=== PATIENT | male | born 1945 | race Caucasian/White ===

== ENCOUNTER 2016-09-17 12:42 | Day surgery (SDC) | payer OTHER ==
[~2016-09-17] VITALS: Ht 161.3 cm; Wt 66.4 kg
[2016-09-17 07:00] VITALS: BP 131/84; PULSE 59; RESP 19; TEMP 97.1; O2SAT 95
[~2016-09-17 12:42] MED LIST: ADVAI500I PO; ALBU1AER INH; AMIO200 PO; ASPI81 CHEW; ATOR20TA PO; FOLI1 PO; LEVA750T PO; METO50TA PO; PROT40TA PO; RIVA20 PO; SERT50 PO; TAB-TAB PO; THIA100T PO; TIZA4 PO
[2016-09-17] MEDS ORDERED: TIZA4CAP3 PO (13:57)
[2016-09-17] MEDS ORDERED: ADVA100A INH (13:57)
[2016-09-17] MEDS ORDERED: SERT-132 PO (13:57)
[2016-09-17] MEDS ORDERED: XARE20TA PO (13:57)
[2016-09-17] MEDS ORDERED: AMIO200T PO (13:57)
[2016-09-17] MEDS ORDERED: oxygen (13:57)
[2016-09-17] MEDS ORDERED: ATOR20TA15 PO (13:57)
[2016-09-17] MEDS ORDERED: PANT40TA3 PO (13:57)
[2016-09-17] MEDS ORDERED: FOLI5CAP PO (13:57)
[2016-09-17] MEDS ORDERED: ASPI1TAB69 PO (13:57)
[2016-09-17 13:59] VITALS: BP 157/84; PULSE 54; RESP 18; TEMP 98.5; O2SAT 96
[2016-09-17 14:17] LABS: AUTOMATED NEUTROPHIL # 4.9 TH/MM3 (1.8-7.7); BASOPHIL % 0.2 % (0.0-2.0); EOSINOPHIL # 0.1 TH/MM3 (0-0.4); EOSINOPHIL % 1.4 % (0.0-4.0); HEMATOCRIT 37.2 % (39.0-51.0); HEMO FLAGS DIFF FINAL; LYMPH % 14.2 % (9.0-44.0); LYMPHOCYTE # 0.9 TH/MM3 (1.0-4.8); MEAN CELL VOLUME 87.3 FL (80.0-100.0); MEAN CORPUSCULAR HEMOGLOBIN 29.4 PG (27.0-34.0); MEAN CORPUSCULAR HGB CONC 33.7 % (32.0-36.0); MONO % 8.2 % (0.0-8.0); PLATELET COUNT 173 TH/MM3 (150-450); RED BLOOD COUNT 4.27 MIL/MM3 (4.50-5.90); RED CELL DISTRIBUTION WIDTH 15.2 % (11.6-17.2); WHITE BLOOD COUNT 6.5 TH/MM3 (4.0-11.0)
[2016-09-17 14:28] LABS: APTT (PATIENT) 24.9 SEC (24.3-30.1); PROTHROMBIN TIME - PATIENT 10.7 SEC (9.8-11.6)
[2016-09-17 14:36] LABS: BICARBONATE 27.6 MEQ/L (21.0-32.0); POTASSIUM 4.1 MEQ/L (3.5-5.1)
[2016-09-17] MEDS ORDERED: LACTATED RINGER'S 1000 ML IV SCH (15:30)
[2016-09-17] MEDS ORDERED: LORazepam 1 MG TAB SL SCH (15:30)
[2016-09-17] MEDS ORDERED: METOPROLOL TARTRATE 25 MG TAB PO PRN (15:30)
[2016-09-17] MEDS ORDERED: INSULIN HUMAN REGULAR 1,000 UNITS/10 ML VIAL SQ PRN (15:30)
[2016-09-17] MEDS ORDERED: SODIUM CHLORID 0.9% 500 ML INJ 500 ML IV SCH (15:30)
[2016-09-17] MEDS ORDERED: SODIUM CHLORID 0.9% 500 ML IV SCH (15:30)
[2016-09-17] MEDS ORDERED: HEPARIN-NS/PF INJ 500 ML ONE (16:14)
[2016-09-17] MEDS ORDERED: PROPOFOL 200 MG/20 ML AMP IV ONE (16:50)
[2016-09-17] MEDS ORDERED: ISOPROTERENOL HCL 1 MG/5 ML AMP ONE (17:02)
[2016-09-17] MEDS ORDERED: HEPARIN-D5W INJ 250 ML ONE (17:02)
[2016-09-17] MEDS ORDERED: fentaNYL CITRATE 250 MCG/5 ML AMP ONE (17:02)
[2016-09-17] MEDS ORDERED: PROTAMINE SULFATE 50 MG/5 ML VIAL ONE (17:02)
[2016-09-17] MEDS ORDERED: HEPARIN SODIUM - IV 10,000 UNITS/10 ML VIAL ONE (17:02)
[2016-09-17] MEDS ORDERED: LEVOFLOXACIN 500 MG PREMIX INJ 100 ML IV ONE (17:10)
[2016-09-17] MEDS ORDERED: LORazepam 2 MG/ML VIAL IV PRN (19:15)
[2016-09-17] MEDS ORDERED: SODIUM CHLOR 0.9% 250 ML INJ 250 ML IV PRN (19:15)
[2016-09-17] MEDS ORDERED: METOCLOPRAMIDE HCL 10 MG/2 ML VIAL IV PRN (19:15)
[2016-09-17] MEDS ORDERED: LIDOCAINE HCL 1% 50 ML VIAL INFIL PRN (19:15)
[2016-09-17] MEDS ORDERED: BACITRACIN OINT 0.9 GM PKT TOP ONE (19:15)
[2016-09-17] MEDS ORDERED: ATROPINE SULFATE 1 MG/ML VIAL IV PRN (19:15)
[2016-09-17] MEDS ORDERED: oxyCODONE/ACETAMINOPHEN 5 MG/325 MG TAB PO PRN (19:15)
[2016-09-17] MEDS ORDERED: ONDANSETRON HCL 4 MG/2 ML VIAL IV PRN (19:15)
[2016-09-17] MEDS ORDERED: DO NOT ADM ANY ANTICOAGULANT DRUGS XX PRN (20:30)
[2016-09-17] MEDS ORDERED: ATORVASTATIN 20 MG TAB PO SCH (21:00)
[2016-09-17] MEDS: BUDESONIDE-FORMOTEROL 80/4.5 MCG INHALER INH SCH (21:00)
[2016-09-17] MEDS ORDERED: NON-FORMULARY DRUG (Fluticasone-Salmeterol Inh (Advair Diskus Inh) 1 PUFF) INH SCH (21:00)
[2016-09-17 21:17] VITALS: BP 107/70; PULSE 60; RESP 18; TEMP 98.1; O2SAT 96
[2016-09-17 22:00] VITALS: PULSE 55
[2016-09-17] MEDS ORDERED: RIVAROXABAN 20 MG TAB PO SCH (22:00)
[2016-09-17 23:00] VITALS: PULSE 58
[2016-09-18] VITALS (12 sets, daily range): BP systolic 110–131; BP diastolic 69–84; PULSE 54–80; RESP 16–20; TEMP 97.1–98.5; O2SAT 94–97
[2016-09-18 06:58] LABS: APTT (PATIENT) 29.9 SEC (24.3-30.1); INTERNATIONAL NORMALIZED RATIO 1.2 RATIO; PROTHROMBIN TIME - PATIENT 12.8 SEC (9.8-11.6)
--- NOTE | 2016-09-18 08:02 | PD.CARD.PN ---
Subjective Subjective Remarks Feels ok. Objective Medications Current Medications Medications (Trade) Dose Ordered Sig/Vidal Route Start Time Stop Time Status Last Admin Sodium Chloride 500 ml @ 30 mls/hr [id number] IV 09/17/16 15:30 09/18/16 15:29 (NS 500 ml Inj) 500 ml @ 30 mls/hr [id number] IV 09/17/16 15:30 (Ativan Inj) 0.5 mg UNSCH PRN IV 09/17/16 19:15 09/18/16 19:14 Atropine Sulfate 0.5 mg 0.5 mg UNSCH PRN IV 09/17/16 19:15 (NS 250 ml Inj) 250 ml @ 500 mls/hr ONCE PRN IV 09/17/16 19:15 09/18/16 19:14 (Reglan Inj) 10 mg Q4H PRN IV 09/17/16 19:15 (Zofran Inj) 4 mg Q4H PRN IV 09/17/16 19:15 (Xylocaine 1% Inj (50 ml)) 10 ml UNSCH PRN INFIL 09/17/16 19:15 09/18/16 19:14 (Cordarone) 200 mg DAILY PO 09/18/16 09:00 (Ecotrin Ec) 81 mg DAILY PO 09/18/16 09:00 (Lipitor) 20 mg HS PO 09/17/16 21:00 09/17/16 21:49 (Folate) 1 mg DAILY PO 09/18/16 09:00 (Protonix) 40 mg DAILY PO 09/18/16 09:00 (Zoloft) 50 mg DAILY PO 09/18/16 09:00 (Zanaflex) 4 mg TID PO 09/18/16 09:00 (Xarelto) 20 mg DAILY@22 PO 09/17/16 22:00 09/17/16 21:49 (Symbicort 80-4.5 Mcg Inh) 2 puff BID INH 09/17/16 21:00 Miscellaneous Information ALL NURSING DEPARTME... UNSCH PRN XX 09/17/16 20:30 09/18/16 20:29 Vital Signs / I&O Vital Signs Date Time Temp Pulse Resp B/P Pulse Ox O2 Delivery O2 Flow Rate FiO2 09/18/16 06:00 55 09/18/16 05:00 55 09/18/16 04:00 98.1 58 16 110/69 97 09/18/16 04:00 59 09/18/16 03:45 94 09/18/16 03:00 55 09/18/16 02:00 61 09/18/16 01:00 60 09/18/16 00:00 61 09/18/16 00:00 98.5 58 16 126/84 96 09/17/16 23:00 58 09/17/16 22:00 55 09/17/16 21:17 98.1 60 18 107/70 96 09/17/16 20:45 97.8 58 16 109/73 95 Room Air 09/17/16 20:30 57 16 115/70 94 Room Air 09/17/16 20:15 56 16 120/71 94 Room Air 09/17/16 20:05 54 16 124/75 93 Room Air 09/17/16 20:00 55 16 127/72 98 Nasal Cannula 2 Simple Mask 09/17/16 19:55 53 15 139/79 98 Nasal Cannula 2 09/17/16 19:50 54 15 147/80 97 Nasal Cannula 2 09/17/16 19:45 57 15 168/92 96 Nasal Cannula 2 09/17/16 19:30 98.1 60 16 178/99 95 Nasal Cannula 2 09/17/16 13:59 98.5 54 18 157/84 96 I/O 09/17/16 09/17/16 09/17/16 09/18/16 09/18/16 09/18/16 07:00 15:00 23:00 07:00 15:00 23:00 Intake Total 700 ml 240 ml Output Total 260 ml 500 ml Balance 440 ml -260 ml Intake Oral 240 ml IV Total 100 ml Other 600 ml Output Urine Total 250 ml 500 ml Estimated Blood Loss 10 ml Physical Exam GENERAL: Well-nourished, well-developed patient. SKIN: Warm and dry. Groin sites soft, no hematoma or bleeding. HEAD: Normocephalic. EYES: No scleral icterus. No injection or drainage. NECK: Supple, trachea midline. No JVD or lymphadenopathy. CARDIOVASCULAR: Regular rate and rhythm without murmurs, gallops, or rubs. RESPIRATORY: Breath sounds equal bilaterally. No accessory muscle use. GASTROINTESTINAL: Abdomen soft, non-tender, nondistended. EXTREMITIES: No cyanosis, or edema. NEUROLOGICAL: Awake, alert, and oriented x 3. Non-focal. Laboratory Laboratory Tests Test 09/17/16 09/17/16 09/18/16 13:39 13:44 05:48 Blood Type O POSITIVE Antibody Screen NEGATIVE White Blood Count 6.5 TH/MM3 Red Blood Count 4.27 MIL/MM3 Hemoglobin 12.5 GM/DL Hematocrit 37.2 % Mean Corpuscular Volume 87.3 FL Mean Corpuscular Hemoglobin 29.4 PG Mean Corpuscular Hemoglobin 33.7 % Concent Red Cell Distribution Width 15.2 % Platelet Count 173 TH/MM3 Mean Platelet Volume 9.5 FL Neutrophils (%) (Auto) 76.0 % Lymphocytes (%) (Auto) 14.2 % Monocytes (%) (Auto) 8.2 % Eosinophils (%) (Auto) 1.4 % Basophils (%) (Auto) 0.2 % Neutrophils # (Auto) 4.9 TH/MM3 Lymphocytes # (Auto) 0.9 TH/MM3 Monocytes # (Auto) 0.5 TH/MM3 Eosinophils # (Auto) 0.1 TH/MM3 Basophils # (Auto) 0.0 TH/MM3 CBC Comment DIFF FINAL Differential Comment Prothrombin Time 10.7 SEC 12.8 SEC Prothromb Time International 1.0 RATIO 1.2 RATIO Ratio Activated Partial 24.9 SEC 29.9 SEC Thromboplast Time Sodium Level 139 MEQ/L Potassium Level 4.1 MEQ/L Chloride Level 104 MEQ/L Carbon Dioxide Level 27.6 MEQ/L Anion Gap 7 MEQ/L Blood Urea Nitrogen 15 MG/DL Creatinine 1.25 MG/DL Estimat Glomerular Filtration 57 ML/MIN Rate Random Glucose 98 MG/DL Calcium Level 8.8 MG/DL Assessment and Plan Problem List: (1) A-fib Assessment and Plan: NSR on tele today. No recurrence overnight. (2) S/P ablation of atrial fibrillation Assessment and Plan: Stable, NSR, d/c home, f/u with Dr. Duarte in 3 weeks per my d/w Dr. Duarte. Problem Qualifiers (1) A-fib: Qualified Code: I48.0 - Paroxysmal atrial fibrillation JenSulema Wicho VILLA Sep 18, 2016 08:02
[2016-09-18] MEDS ORDERED: FOLIC ACID 1 MG TAB PO SCH (09:00)
[2016-09-18] MEDS ORDERED: RIVAROXABAN 20 MG TAB PO SCH (09:00)
[2016-09-18] MEDS ORDERED: AMIODARONE 200 MG TAB PO SCH (09:00)
[2016-09-18] MEDS ORDERED: SERTRALINE HCL 50 MG TAB PO SCH (09:00)
[2016-09-18] MEDS ORDERED: ASPIRIN EC 81 MG TABEC PO SCH (09:00)
[2016-09-18] MEDS: BUDESONIDE-FORMOTEROL 80/4.5 MCG INHALER INH SCH (09:00)
[2016-09-18] MEDS ORDERED: PANTOPRAZOLE SOD 40 MG DELAYED RELEASE TAB PO SCH (09:00)
--- NOTE | 2016-09-18 13:51 | EKG ---
Date Performed: 09/17/2016 Time Performed: 14:21:20 PTAGE: 71 years EKG: Sinus bradycardia Leftward axis Borderline ECG Compared to prior tracing no significant brent nge PREVIOUS TRACING : 09/17/2016 14.12 DOCTOR: Asia Barnett Interpretating Date/Time 09/18/2016 13:49:25
--- NOTE | 2016-09-18 13:52 | EKG ---
Date Performed: 09/18/2016 Time Performed: 06:20:42 PTAGE: 71 years EKG: Sinus rhythm Low QRS voltages in limb leads Borderline ECG Compared to prior tracing no significant change PREVIOUS TRACING : 09/17/2016 20.39 DOCTOR: Asia Barnett Interpretating Date/Time 09/18/2016 13:49:45
--- NOTE | 2016-09-18 13:52 | EKG ---
Date Performed: 09/17/2016 Time Performed: 20:39:17 PTAGE: 71 years EKG: SINUS BRADYCARDIA BORDERLINE LEFT AXIS DEVIATION LOW QRS VOLTAGE IN EXTREMITY LEADS BORDERL INE ECG Compared to prior tracing no significant change PREVIOUS TRACING : 09/17/2016 14.21 DOCTOR: Asia Barnett Interpretating Date/Time 09/18/2016 13:49:36
--- NOTE | 2016-10-06 13:10 | PD.CARD ---
Atrial Fibrillation Ablation PROCEDURE DATE: Sep 17, 2016 PROCEDURES PERFORMED: 1. Electrophysiology study on Isuprel infusion 2. CS cannulation 3. 3-D mapping 4. Transseptal approach 5. Right and left heart catheterization 6. Intracardiac echo 7. Radiofrequency ablation of atrial fibrillation 8. Pulmonary vein isolation 9. Posterior wall ablation 10. Mitral line creation 11. Anterior wall ablation INDICATIONS FOR THE PROCEDURE Mr. Bunch is a 71-year-old male with hx of symptomatic atrial fibrillation referred for electrophysiology study and ablation. The patient is symptomatic and on anticoagulation. The risks, the nature and the benefits of the procedure were clearly stated to him. The risks include pneumothorax, cardiac perforation, stroke, need for open heart surgery and even . The patient understood and agreed to proceed. DESCRIPTION OF THE PROCEDURE IN DETAIL As written informed consent was obtained prior to esophageal echocardiogram, the patient was kept on the table where he was prepped and draped in the usual sterile fashion. Conscious sedation was initiated and maintained throughout the procedure by the anesthesiologist. Once sedation was verified, the right and left inguinal areas were anesthetized with 2% Xylocaine. Using modified Seldinger technique, the left femoral vein was cannulated on three occasions, three guidewires were advanced. Over the wire a 6, 7 and a 10-Malagasy Hemaquet were advanced. Then the left femoral artery was cannulated on one occasion, one guidewire was advanced. Over the wire a 4-Malagasy Hemaquet was advanced. Then the right femoral vein was cannulated on one occasion, one guidewire was advanced. Over the wire a 8-Malagasy Hemaquet was advanced. Then under fluoroscopic guidance through the 6 and 7-Malagasy Hemaquet, two 5-Malagasy Ofelia curved quadripolar electrophysiology catheters were advanced and placed around the His as well as coronary sinus. Basic interval was measured. The patient was in sinus. Through the 10-Malagasy Hemaquet, a Cordis Knowles AcuNav intracardiac echo catheter was advanced and placed at the right atrium. Multiple view was obtained. There was no significant pericardial effusion, pulmonary vein was seen, atrial septal was visualized. Then the 8-Malagasy Hemaquet in the right femoral vein was exchanged for Agilis transseptal sheath that was placed all the way to the superior vena cava. Through the sheath a Yulissa needle was advanced, then the sheath, the dilator and the needle were progressed until foci engaged. Once engaged, the needle was advanced. RF was delivered for 2 seconds. I was able to cross into the left atrium. Once the needle crossed, the dilator was advanced. Once the dilator crossed, the sheath was advanced. Once the sheath crossed, the dilator and the needle were removed. At this point I did flood the system and fluid movement was seen in the left atrium the indicates the sheath is in good position. The patient already received 10,000 units of heparin. The goal is to keep an ACT around 350 during ablation. Then through the sheath a St. Eran 20 pulse circumferential catheter was advanced. Using Object Matrix endocardial solution mapping system, a two-dimensional configuration of the left atrium was obtained. Points were taken at the left superior and inferior veins, right superior and inferior veins, mitral valve, and appendages. Then through the sheath a St. Eran TactiCath 65cm 3.5mm irrigated tipped mapping and radiofrequency ablation catheter was advanced. Esophageal probe was placed temperature monitoring during ablation. When it increased to 0.5 degrees Celsius above baseline, I moved to a different area of the atrium. First I did isolate the left superior and inferior vein. I did make a point lay ira around the veins. Posterior was ablated. A mitral line was created. Then the right superior and inferior veins were isolated. I did remap the atrium. The circumferential catheter was advanced . There was no signal into the vein, pacing from the vein showed no conduction to the atrium. Isuprel infusion was initiated at 20 mcg for 15 minutes. No tachyarrhythmia was induced , post Isuprel no tachyarrhythmia was induced. At that point the procedure was complete. All catheters were removed, atrial septal sheath was exchanged for 9- Malagasy Hemaquet, intracardiac echo showed no pericardial effusion. There is still good flow in the pulmonary vein. The patient is going to be transferred to the recovery room. No incident report. The patient tolerated the procedure. Blood loss was minimal. FINDINGS 1. Electrocardiogram: At baseline the patient was in sinus rhythm. Post procedure electrocardiogram was unchanged. 2. Basic interval: Base cycle length was around 1150. AH at 76 and HV at 46 milliseconds. 3. Tachyarrhythmia: Atrial fibrillation was mapped and ablated. The ablation was successful. CONCLUSION Successful electrophysiology study, mapping, radiofrequency ablation of atrial fibrillation, pulmonary vein isolation, posterior ablation, and mitral line creation. COMMENTS AND RECOMMENDATIONS The patient is going to be transferred to the telemetry unit. Will be observed and when stable can be discharged home. Shaheed Duarte MD Oct 06, 2016 13:10
--- NOTE | 2016-10-07 13:10 | ETE ---
Study Study Date:09/17/2016 STUDY CONCLUSIONS SUMMARY - Left ventricle: The cavity size was normal. Wall thickness was normal. Systolic function was normal. The estimated ejection fraction was in the range of 55% to 60%. Wall motion was normal; there were no regional wall motion abnormalities. - Aortic valve: No evidence of vegetation. - Mitral valve: No evidence of vegetation. - Left atrium: The atrium was dilated. No evidence of thrombus in the atrial cavity or appendage. No evidence of thrombus in the atrial cavity or appendage. - Right atrium: No evidence of thrombus in the atrial cavity or appendage. - Atrial septum: No defect or patent foramen ovale was identified. Echo contrast study showed no yrmud-fk-toen atrial level shunt, at baseline or with provocation. - Tricuspid valve: No evidence of vegetation. - Pulmonic valve: No evidence of vegetation. If LV function is below 40, please consider prescribing an ACEI or ARB or document rationale for non-use. PROCEDURE DATA Consent: The risks, benefits, and alternatives to the procedure were explained to the patient and informed consent was obtained. Procedure: Initial setup. The patient was brought to the laboratory in the fasting state. Intravenous access was obtained. Surface ECG leads and pulse oximetric signals were monitored. Sedation. Conscious sedation was administered by anesthesiology. Transesophageal echocardiography. Topical anesthesia was obtained using viscous lidocaine. A transesophageal probe was inserted by the attending manager pmo. Image quality was good. Study completion: All IVs inserted during the procedure were removed. The patient tolerated the procedure well. There were no complications. Transesophageal echocardiography. 2D, complete spectral Doppler, and color Doppler. CARDIAC ANATOMY LEFT VENTRICLE: The cavity size was normal. Wall thickness was normal. Systolic function was normal. The estimated ejection fraction was in the range of 55% to 60%. Wall motion was normal; there were no regional wall motion abnormalities. AORTIC VALVE: Structurally normal valve. Trileaflet; normal thickness leaflets. Cusp separation was normal. No evidence of vegetation. Doppler: No significant regurgitation. Aorta: - There was no atheroma. There was no evidence for dissection. Aortic root: The aortic root was not dilated. Ascending aorta: The ascending aorta was normal in size. Aortic arch: The aortic arch was normal in size. Descending aorta: The descending aorta was normal in size. MITRAL VALVE: Structurally normal valve. Leaflet separation was normal. No evidence of vegetation. Doppler: Trace regurgitation. LEFT ATRIUM: The atrium was dilated. No evidence of thrombus in the atrial cavity or appendage. No evidence of thrombus in the atrial cavity or appendage. The appendage was morphologically a left appendage, multilobulated, and of normal size. Emptying velocity was normal. ATRIAL SEPTUM: No defect or patent foramen ovale was identified. Echo contrast study showed no vtreb-ge-selg atrial level shunt, at baseline or with provocation. RIGHT VENTRICLE: The cavity size was normal. Wall thickness was normal. Systolic function was normal. PULMONIC VALVE: Structurally normal valve. No evidence of vegetation. TRICUSPID VALVE: Structurally normal valve. Leaflet separation was normal. No evidence of vegetation. Doppler: No significant regurgitation. PULMONARY ARTERY: The main pulmonary artery was normal-sized. RIGHT ATRIUM: The atrium was normal in size. No evidence of thrombus in the atrial cavity or appendage. The appendage was morphologically a right appendage. PERICARDIUM: There was no pericardial effusion. Prepared and signed by Shaheed Duarte [id number]
== END 2016-09-18 18:00 | disposition home or self-care (01) ==
LOC: HCAT 12:42 → HDIC 12:44 → HCIN 21:01 → HCAT 09-18 18:00
PROVIDERS: ATTEND Internal Medicine Interventional Cardiology
DX: I48.0 Paroxysmal atrial fibrillation (principal); J44.1 Chronic obstructive pulmonary disease with (acute) exacerbation; Z79.01 Long term (current) use of anticoagulants; Z79.82 Long term (current) use of aspirin
CPT/HCPCS: 00537; 80048; 85002; 85025; 85610; 85730; 86850; 86900; 86901; 93005; 93312; 93320; 93325; 93613; 93623; 93656; 93662; C1730; C1731; C1732; C1759; C1766; C2630; J1644; J1956; J2720; J3010

== ENCOUNTER 2016-10-18 06:50 | Emergency (ER) | payer OTHER ==
[~2016-10-18] VITALS: Ht 167.6 cm; Wt 75.0 kg
[~2016-10-18 06:50] MED LIST changes: +ADVA100A INH; -ADVAI500I PO; -ALBU1AER INH; -AMIO200 PO; +AMIO200T PO; +ASPI1TAB69 PO; -ASPI81 CHEW; -ATOR20TA PO; +ATOR20TA15 PO; -FOLI1 PO; +FOLI5CAP PO; -LEVA750T PO; -METO50TA PO; +PANT40TA3 PO; -PROT40TA PO; -RIVA20 PO; +SERT-132 PO; -SERT50 PO; -TAB-TAB PO; -THIA100T PO; -TIZA4 PO; +TIZA4CAP3 PO; +XARE20TA PO; +oxygen
[2016-10-18 06:53] VITALS: BP 167/102; PULSE 81; RESP 26; TEMP 98.3; O2SAT 94
[2016-10-18] MEDS ORDERED: methylPREDNISolone SOD SUCC 125 MG/2 ML VIAL IVP ONE (07:15)
[2016-10-18] MEDS ORDERED: SODIUM CHLORIDE 0.9% FLUSH 5 ML FLUSH IVF PRN (07:15)
[2016-10-18 07:18] VITALS: BP 155/76; PULSE 74; RESP 26; O2SAT 97
--- NOTE | 2016-10-18 07:18 | PD ---
HPI Chief Complaint: Respiratory Symptoms Time Seen by Provider: 06:53 Travel History International Travel<30 days: No Contact w/Intl Traveler<30days: No Traveled to known affect area: No History of Present Illness HPI This is a 71-year-old male who has a history of coronary artery disease and COPD on 2 L nasal cannula at home who presents to the emergency department with shortness of breath that woke him up from sleep at 4 AM, constant, moderate severity associated with some pain in his left chest. He doesn't usually get chest pain in the setting of COPD. He denies any mucus production. He denies any fevers or chills. PFSH Past Medical History Hx Anticoagulant Therapy: Yes Arthritis: No Asthma: No Atrial Fibrillation: Yes Autoimmune Disease: No Anxiety: No Depression: No Heart Rhythm Problems: Yes Cancer: No Cardiovascular Problems: Yes (a-fib) High Cholesterol: Yes Chemotherapy: No Chest Pain: No Congestive Heart Failure: No COPD: Yes Cerebrovascular Accident: Yes (@10 years ago) Coronary Artery Disease: Yes Diabetes: No Diminished Hearing: No Endocrine: No Gastrointestinal Disorders: Yes GERD: Yes Genitourinary: No Headaches: No Hiatal Hernia: Yes Hypertension: Yes Immune Disorder: No Inguinal Hernia: Yes Kidney Stones: No Musculoskeletal: Yes Neurologic: Yes Psychiatric: Yes (Self Holley Act Depression over 's ) Reproductive: No Respiratory: Yes Immunizations Current: Yes Migraines: No Radiation Therapy: No Seizures: No Sickle Cell Disease: No Sleep Apnea: No Thyroid Disease: No Ulcer: No Tetanus Vaccination: < 5 Years Influenza Vaccination: Yes Past Surgical History Abdominal Surgery: Yes (HERNIA REPAIR) AICD: No Appendectomy: Yes Arteriovenous Shunt: No Cardiac Surgery: Yes (Stent) Ear Surgery: No Endocrine Surgery: No Eye Surgery: Yes (Bilateral cataracts) Genitourinary Surgery: No Gynecologic Surgery: Yes Insulin Pump: No Joint Replacement: No Neurologic Surgery: No Oral Surgery: Yes (Dental surgery) Pacemaker: No Thoracic Surgery: No Tonsillectomy: Yes Other Surgery: Yes Social History Alcohol Use: Yes Tobacco Use: No Substance Use: No Allergies-Medications (Allergen,Severity, Reaction): Coded Allergies: Codeine (Verified Allergy, Intermediate, 10/18/16) Reported Meds & Prescriptions Reported Meds & Active Scripts Active Reported [oxygen] Xarelto (Rivaroxaban) 20 Mg Tab 20 Mg PO DAILY Tizanidine (Tizanidine HCl) 4 Mg Cap 4 Mg PO TID Sertraline (Sertraline HCl) 50 Mg Tab 50 Mg PO DAILY Pantoprazole (Pantoprazole Sodium) 40 Mg Tab 40 Mg PO DAILY Folic Acid 5 Mg Cap 1 Mg PO DAILY Atorvastatin (Atorvastatin Calcium) 20 Mg Tab 20 Mg PO HS Aspirin 81 Mg Tabdr 81 Mg PO DAILY Amiodarone (Amiodarone HCl) 200 Mg Tab 200 Mg PO DAILY Advair Diskus Inh (Fluticasone-Salmeterol Inh) 100-50 Mcg/Blist Aer 1 Puff INH BID Rinse mouth after use. Review of Systems Except as stated in HPI: all other systems reviewed are Neg Physical Exam Narrative GENERAL: Frail chronically ill-appearing male in moderate respiratory distress SKIN: Warm and dry. HEAD: Atraumatic. Normocephalic. EYES: Pupils equal and round. No injection or drainage. ENT: Moist mucous membranes NECK: Trachea midline. CARDIOVASCULAR: Regular rate and rhythm. No murmur appreciated. RESPIRATORY: Tachypneic with accessory muscle use, poor air movement, and expiratory wheezing in the bilateral lung boland. GASTROINTESTINAL: Abdomen soft, non-tender, nondistended. MUSCULOSKELETAL: No obvious deformities. NEUROLOGICAL: Awake and alert. No obvious cranial nerve deficits. Moving all extremities. PSYCHIATRIC: Appropriate mood and affect; insight and judgment normal. Data Data Last Documented VS Vital Signs Date Time Temp Pulse Resp B/P Pulse Ox O2 Delivery O2 Flow Rate FiO2 10/18/16 07:19 97 Nasal Cannula 2 10/18/16 07:18 74 26 155/76 10/18/16 06:53 98.3 Orders Electrocardiogram (10/18/16 07:08) Complete Blood Count With Diff (10/18/16 07:08) Comprehensive Metabolic Panel (10/18/16 07:08) Chest, Single Ap (10/18/16 07:08) Ecg Monitoring (10/18/16 07:08) Iv Access Insert/Monitor (10/18/16 07:08) Oximetry (10/18/16 07:08) Oxygen Administration (10/18/16 07:08) Methylprednisolone So Succ Inj (Solumedr (10/18/16 07:15) Sodium Chloride 0.9% Flush (Ns Flush) (10/18/16 07:15) Troponin I (10/18/16 07:08) Albuterol Neb (Albuterol Neb) (10/18/16 07:15) Labs Laboratory Tests Test 10/18/16 07:20 White Blood Count 13.2 TH/MM3 Red Blood Count 4.14 MIL/MM3 Hemoglobin 12.3 GM/DL Hematocrit 36.7 % Mean Corpuscular Volume 88.6 FL Mean Corpuscular Hemoglobin 29.7 PG Mean Corpuscular Hemoglobin 33.5 % Concent Red Cell Distribution Width 15.9 % Platelet Count 247 TH/MM3 Mean Platelet Volume 9.3 FL Neutrophils (%) (Auto) 83.8 % Lymphocytes (%) (Auto) 7.4 % Monocytes (%) (Auto) 7.5 % Eosinophils (%) (Auto) 1.1 % Basophils (%) (Auto) 0.2 % Neutrophils # (Auto) 11.1 TH/MM3 Lymphocytes # (Auto) 1.0 TH/MM3 Monocytes # (Auto) 1.0 TH/MM3 Eosinophils # (Auto) 0.2 TH/MM3 Basophils # (Auto) 0.0 TH/MM3 CBC Comment DIFF FINAL Differential Comment Sodium Level 140 MEQ/L Potassium Level 4.3 MEQ/L Chloride Level 103 MEQ/L Carbon Dioxide Level 28.3 MEQ/L Anion Gap 9 MEQ/L Blood Urea Nitrogen 18 MG/DL Creatinine 1.09 MG/DL Estimat Glomerular Filtration 66 ML/MIN Rate Random Glucose 106 MG/DL Calcium Level 9.0 MG/DL Total Bilirubin 0.5 MG/DL Aspartate Amino Transf 29 U/L (AST/SGOT) Alanine Aminotransferase 55 U/L (ALT/SGPT) Alkaline Phosphatase 119 U/L Troponin I LESS THAN 0.02 NG/ML Total Protein 6.7 GM/DL Albumin 3.9 GM/DL [facility] Medical Decision Making Medical Screen Exam Complete: Yes Emergency Medical Condition: Yes Interpretation(s) EKG: Normal sinus rhythm with sinus arrhythmia, some hyperacute T waves in V3 and V4, no ST depressions or T-wave inversions Afebrile, no tachycardia, hypertensive Leukocytosis with left shift Electrolytes are reassuring Troponin is normal Chest x-ray: No acute process Differential Diagnosis Pneumonia, COPD exacerbation, atrial fibrillation, congestive heart failure, pulmonary embolism Narrative Course This is a 71-year-old male who presents to the emergency department with shortness of breath that woke him up from sleep. He has a history of advanced COPD and is on 2 L of oxygen at all times. He was given serial bronchodilator treatments and steroids. On exam he was much improved, breathing comfortably and speaking full sentences. EKG is nonischemic and his troponin is normal. I don't suspect acute coronary syndrome. His oxygen saturation is 97% on his baseline 2 L so I doubt this is a pulmonary embolism. I think patient can safely be discharged home and follow-up with his primary care physician. I advised him to return if his symptoms get worse. Diagnosis Primary Impression: COPD exacerbation Patient Instructions: General Instructions Additional Instructions: If you develop severe chest pain, shortness of breath, sweating, lightheadedness , dizziness or difficulty breathing return to the emergency department immediately. Followup with your primary care physician in 2-3 days if your symptoms are not resolved. Med/Other Pt SpecificInfo: Prescription(s) given Scripts Azithromycin 250 Mg [id number] Mg PO DIRECTED #6 TAB Take 2 tabs (500 mg) on day 1 then 1 tab daily x 4 days. Prov:Bobbi Jensen MD 10/18/16 Prednisone 20 Mg Tab40 Mg PO DAILY 4 Days Prov:Bobbi Jensen MD 10/18/16 Disposition: DISCHARGE HOME Condition: Stable Bobbi Jensen MD Oct 18, 2016 07:18
[2016-10-18 07:19] VITALS: O2SAT 97
[2016-10-18 07:35] LABS: AUTOMATED NEUTROPHIL # 11.1 TH/MM3 (1.8-7.7); BASOPHIL % 0.2 % (0.0-2.0); EOSINOPHIL # 0.2 TH/MM3 (0-0.4); EOSINOPHIL % 1.1 % (0.0-4.0); HEMATOCRIT 36.7 % (39.0-51.0); HEMO FLAGS DIFF FINAL; LYMPH % 7.4 % (9.0-44.0); MEAN CELL VOLUME 88.6 FL (80.0-100.0); MEAN CORPUSCULAR HEMOGLOBIN 29.7 PG (27.0-34.0); MEAN CORPUSCULAR HGB CONC 33.5 % (32.0-36.0); MONO % 7.5 % (0.0-8.0); NEUT % 83.8 % (16.0-70.0); PLATELET COUNT 247 TH/MM3 (150-450); RED BLOOD COUNT 4.14 MIL/MM3 (4.50-5.90); RED CELL DISTRIBUTION WIDTH 15.9 % (11.6-17.2); WHITE BLOOD COUNT 13.2 TH/MM3 (4.0-11.0)
[2016-10-18] MEDS: RESP: ALBUTEROL 2.5 MG/3 ML NEB (SCH) INH (07:39)
--- NOTE | 2016-10-18 07:40 | RADRPT ---
EXAM DATE/TIME: 10/18/2016 07:26 [facility] COMPARISON: CHEST SINGLE AP, June 03, 2016, 15:39. INDICATIONS : Patient woke up this morning being short of breath and left chest pain. MEDICAL HISTORY : Hypercholesterolemia. Chronic obstructive pulmonary disease. Myocardial SURGICAL HISTORY : Tonsillectomy. Appendectomy. Inguinal hernia repair. Bilateral cataract surgery. ENCOUNTER: Initial ACUITY: 1 day PAIN SCORE: 5/10 LOCATION: Left chest FINDINGS: A single view of the chest demonstrates the lungs to be symmetrically aerated without evidence of mas s, infiltrate or effusion. The cardiomediastinal contours are unremarkable. Osseous structures are intact. CONCLUSION: No acute disease. Eros Gonsalez MD on October 18, 2016 at 7:38 Board Certified Radiologist. This report was verified electronically.
[2016-10-18 08:04] LABS: ALT (GPT) 55 U/L (12-78); ANION GAP 9 MEQ/L (5-15); AST (GOT) 29 U/L (15-37); BICARBONATE 28.3 MEQ/L (21.0-32.0); BLOOD UREA NITROGEN 18 MG/DL (7-18); CHLORIDE 103 MEQ/L (98-107); GLOMERULAR FILTRATION RATE 66 ML/MIN (>89); POTASSIUM 4.3 MEQ/L (3.5-5.1); SODIUM (NA) 140 MEQ/L (136-145)
[2016-10-18 08:08] LABS: ALKALINE PHOSPHATASE 119 U/L (45-117); TOTAL BILIRUBIN ADULT 0.5 MG/DL (0.2-1.0)
[2016-10-18] MEDS ORDERED: PRED20 PO (08:16)
[2016-10-18] MEDS ORDERED: AZIT250T3 PO (08:16)
--- NOTE | 2016-10-18 23:38 | EKG ---
Date Performed: 10/18/2016 Time Performed: 07:18:39 PTAGE: 71 years EKG: Sinus rhythm WITH SINUS ARRHYTHMIA BORDERLINE LEFT AXIS DEVIATION BORDERLINE ECG INTERPRETATION BASED ON A DEFAUL T AGE OF 39 YEARS PREVIOUS TRACING : 09/18/2016 06.20 Compared to prior tracing no significant change DOCTOR: Shakeel Suarez Interpretating Date/Time 10/18/2016 23:37:45
== END 2016-10-18 10:39 | disposition home or self-care (01) ==
LOC: NEPE 06:50
DX: J44.1 Chronic obstructive pulmonary disease with (acute) exacerbation (principal); J44.9 Chronic obstructive pulmonary disease, unspecified; R07.9 Chest pain, unspecified; R94.31 Abnormal electrocardiogram [ECG] [EKG]; I48.91 Unspecified atrial fibrillation; E78.00 Pure hypercholesterolemia, unspecified; I10 Essential (primary) hypertension; Z79.01 Long term (current) use of anticoagulants
CPT/HCPCS: 71010; 80053; 84484; 85025; 93005; 94640; 94664; 96374; 99285; J2930; J7613

== ENCOUNTER 2016-12-12 22:58 | Inpatient (IN) | payer OTHER, MEDICARE ==
[~2016-12-12] VITALS: Ht 165.1 cm; Wt 73.0 kg
[~2016-12-12 22:58] MED LIST changes: +AZIT250T3 PO; +PRED20 PO
[2016-12-12 23:01] VITALS: BP 142/90; PULSE 70; RESP 16; TEMP 98.3; O2SAT 100
[2016-12-12] MEDS ORDERED: ADVA500A INH (23:17)
[2016-12-12] MEDS ORDERED: CENTTAB PO (23:17)
--- NOTE | 2016-12-12 23:23 | PD ---
HPI Chief Complaint: Respiratory Distress Time Seen by Provider: 23:16 Travel History International Travel<30 days: No Contact w/Intl Traveler<30days: No Traveled to known affect area: No History of Present Illness HPI The patient is a 71-year-old male with a history of COPD who complains of shortness of breath for the last 2 hours. The patient has oxygen dependency with 2 L nasal cannula. He denies any fever. He has a sharp, pleuritic pain on the right anterior lateral chest wall. He denies any history of congestive heart failure. He does have chronic atrial fibrillation and is on Xarelto. [facility] gave the patient 3 albuterol treatments and he had one albuterol treatment right before [facility] was called and [facility] gave him 125 Solu-Medrol IV. PFSH Past Medical History Hx Anticoagulant Therapy: Yes Arthritis: No Asthma: No Atrial Fibrillation: Yes Autoimmune Disease: No Anxiety: No Depression: Yes Heart Rhythm Problems: Yes Cancer: No Cardiovascular Problems: Yes (a-fib) High Cholesterol: Yes Chemotherapy: No Chest Pain: No Congestive Heart Failure: No COPD: Yes Cerebrovascular Accident: Yes (@10 years ago) Coronary Artery Disease: Yes Diabetes: No Diminished Hearing: No Endocrine: No Gastrointestinal Disorders: Yes GERD: Yes Genitourinary: No Headaches: No Hiatal Hernia: Yes Hypertension: Yes Immune Disorder: No Inguinal Hernia: Yes Kidney Stones: No Musculoskeletal: Yes Neurologic: Yes Psychiatric: Yes Reproductive: No Respiratory: Yes Immunizations Current: Yes Migraines: No Radiation Therapy: No Seizures: No Sickle Cell Disease: No Sleep Apnea: No Thyroid Disease: No Ulcer: No Past Surgical History Abdominal Surgery: Yes (HERNIA REPAIR) AICD: No Appendectomy: Yes Arteriovenous Shunt: No Cardiac Surgery: Yes (Stent, 2 ablations) Ear Surgery: No Endocrine Surgery: No Eye Surgery: Yes (Bilateral cataracts) Genitourinary Surgery: No Gynecologic Surgery: Yes Insulin Pump: No Joint Replacement: No Neurologic Surgery: No Oral Surgery: Yes (Dental surgery) Pacemaker: No Thoracic Surgery: No Tonsillectomy: Yes Other Surgery: Yes (fatty tumor back) Social History Alcohol Use: Yes Tobacco Use: No (1995) Substance Use: No Allergies-Medications (Allergen,Severity, Reaction): Coded Allergies: Codeine (Verified Allergy, Intermediate, 12/12/16) Reported Meds & Prescriptions Reported Meds & Active Scripts Active Reported Centrum Silver (Multiple Vitamins W/ Minerals) 1 Tab 1 Tab PO DAILY Advair Diskus Inh (Fluticasone-Salmeterol Inh) 500-50 Mcg/Blist Aer 1 Puff INH BID Rinse mouth after use. [oxygen] Xarelto (Rivaroxaban) 20 Mg Tab 20 Mg PO DAILY Tizanidine (Tizanidine HCl) 4 Mg Cap 4 Mg PO TID Sertraline (Sertraline HCl) 50 Mg Tab 50 Mg PO DAILY Pantoprazole (Pantoprazole Sodium) 40 Mg Tab 40 Mg PO DAILY Folic Acid 5 Mg Cap 1 Mg PO DAILY Atorvastatin (Atorvastatin Calcium) 20 Mg Tab 20 Mg PO HS Aspirin 81 Mg Tabdr 81 Mg PO DAILY Amiodarone (Amiodarone HCl) 200 Mg Tab 200 Mg PO DAILY Review of Systems Except as stated in HPI: all other systems reviewed are Neg Physical Exam Narrative GENERAL: The patient is alert, oriented 3 in moderate respiratory distress. His vital signs show blood pressure 142/90 but are otherwise normal. SKIN: Focused skin assessment warm/dry. HEAD: Atraumatic. Normocephalic. EYES: Pupils equal and round. No scleral icterus. No injection or drainage. ENT: No nasal bleeding or discharge. Mucous membranes pink and moist. NECK: Trachea midline. No JVD. CARDIOVASCULAR: Regular rate and rhythm. No murmur appreciated. RESPIRATORY: No accessory muscle use. Scattered rhonchi heard on the right anteriorly and posteriorly.. Breath sounds equal bilaterally. GASTROINTESTINAL: Abdomen soft, non-tender, nondistended. Hepatic and splenic margins not palpable. MUSCULOSKELETAL: No obvious deformities. No clubbing. No cyanosis. No edema. NEUROLOGICAL: Awake and alert. No obvious cranial nerve deficits. Motor grossly within normal limits. Normal speech. PSYCHIATRIC: Appropriate mood and affect; insight and judgment normal. Data Data Last Documented VS Vital Signs Date Time Temp Pulse Resp B/P Pulse Ox O2 Delivery O2 Flow Rate FiO2 12/13/16 00:53 82 16 135/64 98 Nasal Cannula 3 12/12/16 23:01 98.3 Orders Basic Metabolic Panel (Bmp) (12/12/16 23:24) B-Type Natriuretic Peptide (12/12/16 23:24) Magnesium (Mg) (12/12/16 23:24) Troponin I (12/12/16 23:24) Arterial Blood Gas (Abg) (12/12/16 23:24) Urinalysis - C+S If Indicated (12/12/16 23:24) Iv Access Insert/Monitor (12/12/16 23:24) Electrocardiogram (12/12/16 23:24) Ecg Monitoring (12/12/16 23:24) Oximetry (12/12/16 23:24) Oxygen Administration (12/12/16 23:24) Chest, Pa & Lat (12/12/16 23:24) Sodium Chloride 0.9% Flush (Ns Flush) (12/12/16 23:30) Albuterol-Ipratropium Neb (Duoneb Neb) (12/12/16 23:30) Complete Blood Count With Diff (12/12/16 23:26) Blood Culture (12/13/16 00:34) Ceftriaxone Inj (Rocephin Inj) (12/13/16 00:45) Azithromycin Inj (Zithromax Inj) (12/13/16 00:45) Place In Observation (12/13/16 ) Vital Signs (Adult) Q4H (12/13/16 00:51) Activity Oob With Assistance (12/13/16 00:51) Spray Rig Operator / Telemetry .CONTINUOUS (12/13/16 00:51) Diet Heart Healthy (12/13/16 Breakfast) Sodium Chloride 0.9% Flush (Ns Flush) (12/13/16 01:00) Sodium Chloride 0.9% Flush (Ns Flush) (12/13/16 09:00) Basic Metabolic Panel (Bmp) (12/14/16 06:00) Complete Blood Count With Diff (12/14/16 06:00) Pt Request For Service (12/13/16 00:51) Case Management Consult (12/13/16 00:51) Naloxone Inj (Narcan Inj) (12/13/16 01:00) Albuterol-Ipratropium Neb (Duoneb Neb) (12/13/16 01:00) Admit Order (Ed Use Only) (12/13/16 01:04) Labs Laboratory Tests Test 12/12/16 12/12/16 12/13/16 23:20 23:58 00:18 White Blood Count 7.3 TH/MM3 Red Blood Count 3.75 MIL/MM3 Hemoglobin 10.7 GM/DL Hematocrit 32.8 % Mean Corpuscular Volume 87.5 FL Mean Corpuscular Hemoglobin 28.4 PG Mean Corpuscular Hemoglobin 32.4 % Concent Red Cell Distribution Width 17.6 % Platelet Count 184 TH/MM3 Mean Platelet Volume 9.2 FL Neutrophils (%) (Auto) 70.8 % Lymphocytes (%) (Auto) 12.1 % Monocytes (%) (Auto) 12.4 % Eosinophils (%) (Auto) 4.4 % Basophils (%) (Auto) 0.3 % Neutrophils # (Auto) 5.2 TH/MM3 Lymphocytes # (Auto) 0.9 TH/MM3 Monocytes # (Auto) 0.9 TH/MM3 Eosinophils # (Auto) 0.3 TH/MM3 Basophils # (Auto) 0.0 TH/MM3 CBC Comment DIFF FINAL Differential Comment Sodium Level 139 MEQ/L Potassium Level 4.2 MEQ/L Chloride Level 103 MEQ/L Carbon Dioxide Level 27.7 MEQ/L Anion Gap 8 MEQ/L Blood Urea Nitrogen 13 MG/DL Creatinine 1.08 MG/DL Estimat Glomerular Filtration 67 ML/MIN Rate Random Glucose 87 MG/DL Calcium Level 8.7 MG/DL Magnesium Level 2.0 MG/DL Troponin I LESS THAN 0.02 NG/ML B-Type Natriuretic Peptide 118 PG/ML Blood Gas Puncture Site RT RADIAL Blood Gas Patient Temperature 98.6 Blood Gas HCO3 25 mmol/L Blood Gas Base Excess 1.3 mmol/L Blood Gas Oxygen Saturation 96 % Arterial Blood pH 7.44 Arterial Blood Partial 38 mmHg Pressure CO2 Arterial Blood Partial 108 mmHG Pressure O2 Arterial Blood Oxygen Content 14.8 Vol % Arterial Blood 0.9 % Carboxyhemoglobin Arterial Blood Methemoglobin 0.9 % Blood Gas Hemoglobin 10.8 G/DL Oxygen Delivery Device NASAL CANNULA Blood Gas Liter Flow 3 L/M Urine Color YELLOW Urine Turbidity CLEAR Urine pH 7.0 Urine Specific [place] 1.010 Urine Protein 30 mg/dL Urine Glucose (UA) NEG mg/dL Urine Ketones NEG mg/dL Urine Occult Blood NEG Urine Nitrite NEG Urine Bilirubin NEG Urine Urobilinogen LESS THAN 2.0 MG/DL Urine Leukocyte Esterase NEG Urine WBC LESS THAN 1 /hpf Urine Mucus FEW /lpf Microscopic Urinalysis Comment CULT NOT INDICATED MDM Medical Decision Making Medical Screen Exam Complete: Yes Emergency Medical Condition: Yes Medical Record Reviewed: Yes Interpretation(s) Scattered infiltrate is noted in the right upper lobe of the lung. The CBC shows a hemoglobin of 10.7 and hematocrit of 32.8 with 71% neutrophils but is otherwise unremarkable. The blood gases show pH 7.44, bicarbonate of 25, CO2 38 and PO2 of 108 and 96% saturation on 3 L nasal cannula. The patient is normally on 2 L nasal cannula at home. The basic metabolic profile shows a GFR 67 but is otherwise normal. The magnesium level and troponin I are normal. The BNP is 118. The urine shows 30 protein and is otherwise unremarkable and culture is not indicated. Differential Diagnosis Pneumonia, bronchitis, COPD with acute exacerbation, asthma, hypoxemia, electrolyte disorder, renal insufficiency, congestive heart failure, pulmonary embolushighly unlikely Narrative Course The patient has a right upper lobe pneumonia. He is very symptomatic and has poor exercise tolerance. He called an ambulance to arrive here because of his symptoms. Plan: The patient is admitted for right upper lobe pneumonia. I discussed the patient with Dr. Prabhakar. Physician Communication Physician Communication I discussed the patient with Dr. Prabhakar. The patient will be 23 hour observation to her. Diagnosis Primary Impression: Right upper lobe pneumonia Admitting Information Admitting Physician Requests: Observation Fritz Ball MD Dec 12, 2016 23:23
[2016-12-12] MEDS ORDERED: SODIUM CHLORIDE 0.9% FLUSH 10 ML FLUSH IVF PRN ×2 (23:30)
[2016-12-12] MEDS ORDERED: methylPREDNISolone SOD SUCC 125 MG/2 ML VIAL IVP ONE (23:30)
[2016-12-12] MEDS ORDERED: RESP: ALBUTEROL 2.5 MG/IPRATROPIUM 0.5 MG NEB (SCH) INH (23:30)
[2016-12-12 23:35] VITALS: O2SAT 97
[2016-12-12] MEDS: RESP: ALBUTEROL 2.5 MG/IPRATROPIUM 0.5 MG NEB (SCH) INH (23:40)
[2016-12-12 23:48] LABS: AUTOMATED NEUTROPHIL # 5.2 TH/MM3 (1.8-7.7); BASOPHIL % 0.3 % (0.0-2.0); EOSINOPHIL # 0.3 TH/MM3 (0-0.4); EOSINOPHIL % 4.4 % (0.0-4.0); HEMATOCRIT 32.8 % (39.0-51.0); HEMO FLAGS DIFF FINAL; LYMPH % 12.1 % (9.0-44.0); LYMPHOCYTE # 0.9 TH/MM3 (1.0-4.8); MEAN CELL VOLUME 87.5 FL (80.0-100.0); MEAN CORPUSCULAR HEMOGLOBIN 28.4 PG (27.0-34.0); MEAN CORPUSCULAR HGB CONC 32.4 % (32.0-36.0); MONO % 12.4 % (0.0-8.0); NEUT % 70.8 % (16.0-70.0); PLATELET COUNT 184 TH/MM3 (150-450); RED BLOOD COUNT 3.75 MIL/MM3 (4.50-5.90); RED CELL DISTRIBUTION WIDTH 17.6 % (11.6-17.2); WHITE BLOOD COUNT 7.3 TH/MM3 (4.0-11.0)
[2016-12-13] VITALS (10 sets, daily range): BP systolic 113–152; BP diastolic 59–79; PULSE 67–88; RESP 16–19; TEMP 97.9–98.3; O2SAT 93–98
--- NOTE | 2016-12-13 00:01 | RADRPT ---
EXAM DATE/TIME: 12/12/2016 23:27 [facility] COMPARISON: No previous studies available for comparison. INDICATIONS : Shortness of breath starting today MEDICAL HISTORY : None. SURGICAL HISTORY : Stent placement ENCOUNTER: Initial ACUITY: 1 day PAIN SCORE: 0/10 LOCATION: Bilateral chest FINDINGS: PA and lateral views of the chest demonstrates a mild infiltrate in the right upper lung. Otherwise, the rest of the lung boland are grossly clear. Lungs are well-aerated. There are no pleural effusions or pulmonary edema.. The cardiomediastinal contours are unremarkable. Osseous structures are intac t. CONCLUSION: Mild focal infiltrate right upper lung. Edenilson Lloyd MD on December 12, 2016 at 23:59 Board Certified Radiologist. This report was verified electronically.
[2016-12-13 00:05] LABS: ANION GAP 8 MEQ/L (5-15); BICARBONATE 27.7 MEQ/L (21.0-32.0); BLOOD UREA NITROGEN 13 MG/DL (7-18); CHLORIDE 103 MEQ/L (98-107); GLOMERULAR FILTRATION RATE 67 ML/MIN (>89); POTASSIUM 4.2 MEQ/L (3.5-5.1); SODIUM (NA) 139 MEQ/L (136-145)
[2016-12-13 00:08] LABS: BLOOD GAS BASE EXCESS 1.3 mmol/L (-2-2); BLOOD GAS CARBOXYHEMOGLOBIN 0.9 % (0-4); BLOOD GAS HCO3 25 mmol/L (22-26); BLOOD GAS METHEMOGLOBIN 0.9 % (0-2); BLOOD GAS O2 HGB SATURATION 96 % (90-100); BLOOD GAS OXYGEN CONTENT 14.8 Vol % (12.0-20.0); BLOOD GAS PCO2 38 mmHg (38-42); BLOOD GAS PO2 108 mmHG (61-120); BLOOD GAS TOTAL HGB 10.8 G/DL (12.0-16.0); CRITICAL VALUE NO; DRAW SITE RT RADIAL; LITER FLOW 3 L/M; NUMBER OF ARTERIAL PUNCTURES 2; OXYGEN DEVICE NASAL CANNULA; TEMP CORR TO 98.6
[2016-12-13 00:09] LABS: STAT YES; ULNAR PULSE PRESENT
[2016-12-13] MEDS ORDERED: cefTRIAXone INJ 1,000 MG in SODIUM CHLORIDE 0.9% INJ 100 ML IV ONE (00:45)
[2016-12-13] MEDS ORDERED: AZITHROMYCIN INJ 500 MG in SODIUM CHLOR 0.9% 250 ML INJ 250 ML IV ONE (00:45)
[2016-12-13] MEDS ORDERED: NALOXONE HCL 0.4 MG/ML AMP IV PRN (01:00)
[2016-12-13] MEDS ORDERED: SODIUM CHLORIDE 0.9% FLUSH 10 ML FLUSH IV FLUSH PRN (01:00)
[2016-12-13] MEDS ORDERED: RESP: ALBUTEROL 2.5 MG/IPRATROPIUM 0.5 MG NEB (PRN) NEB (01:00)
[2016-12-13 01:26] LABS: BLOOD, URINE NEG (NEG); COMMENT (UR) CULT NOT INDICATED; CULTURE IF INDICATED CULT NOT INDICATED; GLUCOSE,URINE NEG (NEG); KETONE, URINE NEG (NEG); MUCUS URINE FEW /lpf (OCC); NITRITE,URINE NEG (NEG); URINE COLOR YELLOW (YELLW/STRAW)
--- NOTE | 2016-12-13 02:12 | HHI.HP ---
[facility] Khari Wellington MD Admission Diagnosis pneumonia, failure of adequate outpatient treatment Diagnoses: Chief Complaint: Shortness of breath Travel History International Travel<30 Days: No Contact w/Intl Traveler <30 Da: No Traveled to Known Affected Are: No History of Present Illness This is a 71 year old male patient with a past medical history which includes Coronary artery disease with stent placement in 2013, 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 Patient reports shortness of breath off and on for one week. Patient reports his shortness of breath is usually resolved after nebulizer treatment at home but tonight the nebulizer did not relieve his shortness of breath, therefore patient pushed him life alert for assistance and was brought to the ER for evaluation and treatment. Patient reports he also has had a productive cough of yellow phlegm. Shortness of breath is associated with chest pain which patient reports feels like a muscle strain from working so hard to breath. Patient denies fevers, chills N/V/D. Patient has resting bilateral upper extremity tremor. Patient reports this has been present for 2-3 years. He also reports difficulty with writing. Patient also reports frequent urination urinates 2-3 times a night for the past one year. Denies dysuria. CXR reviewed by myself and Dr. Prabhakar reveals: Mild focal infiltrate right upper lung. 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 [oxygen] Xarelto (Rivaroxaban) 20 Mg Tab 20 Mg PO DAILY Tizanidine (Tizanidine HCl) 4 Mg Cap 4 Mg PO TID Sertraline (Sertraline HCl) 50 Mg Tab 50 Mg PO DAILY Pantoprazole (Pantoprazole Sodium) 40 Mg Tab 40 Mg PO DAILY Folic Acid 5 Mg Cap 1 Mg PO DAILY Atorvastatin (Atorvastatin Calcium) 20 Mg Tab 20 Mg PO HS Aspirin 81 Mg Tabdr 81 Mg PO DAILY Amiodarone (Amiodarone HCl) 200 Mg Tab 200 Mg PO DAILY Allergies: Coded Allergies: Codeine (Verified Allergy, Intermediate, 12/12/16) Active Ordered Medications Current Medications Medications (Trade) Dose Ordered Sig/Vidal Route Start Time Stop Time Status Last Admin (NS Flush) 2 ml UNSCH PRN IV FLUSH 12/13/16 01:00 (NS Flush) 2 ml BID IV FLUSH 12/13/16 09:00 (Narcan Inj) 0.4 mg UNSCH PRN IV 12/13/16 01:00 (Cordarone) 200 mg DAILY PO 12/13/16 09:00 (Ecotrin Ec) 81 mg DAILY PO 12/13/16 09:00 (Lipitor) 20 mg HS PO 12/13/16 21:00 (Protonix) 40 mg DAILY PO 12/13/16 09:00 (Xarelto) 20 mg DAILY PO 12/13/16 09:00 (Zoloft) 50 mg DAILY PO 12/13/16 09:00 Budesonide/ Formoterol Fumarate 1 puff 1 puff BID INH 12/13/16 02:30 12/13/16 02:55 (Levaquin 750 Mg Premix Inj) 150 ml @ 100 mls/hr Q24H IV 12/13/16 03:00 12/13/16 02:54 (Pneumovax-23 Inj) 25 mcg ONCE ONCE IM 12/14/16 09:00 12/14/16 09:01 Family History Mother secondary to Cancer- unknown type Sister at 66 of ESRD Social History Lives alone has a son and daughter in law who check on him often Quit smoking in 1995 ETOH "I drink on pay day." Patient reports he has a few beers once a month when he gets his check. Physical Exam Vital Signs Vital Signs Date Time Temp Pulse Resp B/P Pulse Ox O2 Delivery O2 Flow Rate FiO2 12/13/16 00:53 82 16 135/64 98 Nasal Cannula 3 12/12/16 23:35 97 Nasal Cannula 3.00 12/12/16 23:20 18 94 Nasal Cannula 3 12/12/16 23:18 92 Nasal Cannula 3 12/12/16 23:14 99 Nasal Cannula 4 12/12/16 23:01 98.3 70 16 142/90 100 Physical Exam GENERAL: This is a well-nourished, well-developed patient, diaphoretic. With bilateral upper extremity tremors SKIN: No rashes, ecchymoses or lesions. Cool and dry. HEAD: Atraumatic. Normocephalic. No temporal or scalp tenderness. EYES: Extraocular motions intact. No scleral icterus. No injection or drainage. CARDIOVASCULAR: Regular rate and rhythm without murmurs, gallops, or rubs. RESPIRATORY: mild scattered expiratory wheezing GASTROINTESTINAL: Abdomen soft, non-tender, nondistended. No guarding. MUSCULOSKELETAL: Extremities without clubbing, cyanosis, or edema. No joint tenderness, effusion, or edema noted. No calf tenderness. Negative Homans sign bilaterally. NEUROLOGICAL: Awake and alert. Motor and sensory grossly within normal limits. 4 out of 5 muscle strength in all muscle groups. Normal speech. Laboratory Laboratory Tests Test 12/12/16 12/12/16 12/13/16 23:20 23:58 00:18 White Blood Count 7.3 Red Blood Count 3.75 Hemoglobin 10.7 Hematocrit 32.8 Mean Corpuscular Volume 87.5 Mean Corpuscular Hemoglobin 28.4 Mean Corpuscular Hemoglobin 32.4 Concent Red Cell Distribution Width 17.6 Platelet Count 184 Mean Platelet Volume 9.2 Neutrophils (%) (Auto) 70.8 Lymphocytes (%) (Auto) 12.1 Monocytes (%) (Auto) 12.4 Eosinophils (%) (Auto) 4.4 Basophils (%) (Auto) 0.3 Neutrophils # (Auto) 5.2 Lymphocytes # (Auto) 0.9 Monocytes # (Auto) 0.9 Eosinophils # (Auto) 0.3 Basophils # (Auto) 0.0 CBC Comment DIFF FINAL Differential Comment Sodium Level 139 Potassium Level 4.2 Chloride Level 103 Carbon Dioxide Level 27.7 Anion Gap 8 Blood Urea Nitrogen 13 Creatinine 1.08 Estimat Glomerular Filtration 67 Rate Random Glucose 87 Calcium Level 8.7 Magnesium Level 2.0 Troponin I LESS THAN 0.02 B-Type Natriuretic Peptide 118 Blood Gas Puncture Site RT RADIAL Blood Gas Patient Temperature 98.6 Blood Gas HCO3 25 Blood Gas Base Excess 1.3 Blood Gas Oxygen Saturation 96 Arterial Blood pH 7.44 Arterial Blood Partial 38 Pressure CO2 Arterial Blood Partial 108 Pressure O2 Arterial Blood Oxygen Content 14.8 Arterial Blood 0.9 Carboxyhemoglobin Arterial Blood Methemoglobin 0.9 Blood Gas Hemoglobin 10.8 Oxygen Delivery Device NASAL CANNULA Blood Gas Liter Flow 3 Urine Color YELLOW Urine Turbidity CLEAR Urine pH 7.0 Urine Specific [place] 1.010 Urine Protein 30 Urine Glucose (UA) NEG Urine Ketones NEG Urine Occult Blood NEG Urine Nitrite NEG Urine Bilirubin NEG Urine Urobilinogen LESS THAN 2.0 Urine Leukocyte Esterase NEG Urine WBC LESS THAN 1 Urine Mucus FEW Microscopic Urinalysis Comment CULT NOT INDICATED Date/Time Procedure Status Source Growth 12/13/16 00:50 Aerobic Blood Culture Received Blood Peripheral Pending 12/13/16 00:50 Anaerobic Blood Culture Received Blood Peripheral Pending Result Diagram: 12/12/16231912/12/162319 Assessment and Plan Problem List: (1) PNA (pneumonia) ICD Code: J18.9 Status: Acute (2) COPD exacerbation ICD Code: J44.1 Status: Acute Assessment and Plan This is a 71 year old male patient with a past medical history which includes Coronary artery disease with stent placement in 2013, 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 Patient reports shortness of breath off and on for one week. Patient reports his shortness of breath is usually resolved after nebulizer treatment at home but tonight the nebulizer did not relieve his shortness of breath, therefore patient pushed him life alert for assistance and was brought to the ER for evaluation and treatment. Patient reports he also has had a productive cough of yellow phlegm. Shortness of breath is associated with chest pain which patient reports feels like a muscle strain from working so hard to breath. Patient denies fevers, chills N/V/D. CXR reviewed by myself and Dr. Prabhakar reveals: Mild focal infiltrate right upper lung. PNA, COPD exacerbation CXR reviewed by myself and Dr. Prabhakar reveals: Mild focal infiltrate right upper lung. Azithromyacin and reocephin in ER, start patient on Levaquin 750 mg IV daily Patient also received slightly marginal 125 mg IV 1 in emergency department Continue Advair Diskus twice a day Duonebs [id number] and PRN Supplemental oxygen titrate to maintain saturation above 90% Atrial fibrillation s/p cardiac ablation- currently in SR continue amiodarone and Xarelto Continuous cardiac telemetry Bilateral resting upper extremity tremors discussed with patient the need for further follow-up with PCP and possible neurology evaluation Frequent urination particularly in the evening discussed with patient the need for follow-up with PCP possible BPH Other stable chronic medical conditions includes hyperlipidemia, GERD and depression continue home medications DVT prophylaxis patient is on Xarelto Discussed here provider, nursing and patient Written by Margarita Herrera, acting as scribe for Dr. Prabhakar on 12/13/16 at 03: 22. This note was transcribed by scribe [Margarita Herrera]. I, Dr. Ham Prabhakar personally performed the history, physical exam, and medical decision making; and confirmed the accuracy of the information in the transcribed note. Authenticated by Dr. Ham Prabhakar on 12/13/16 at 03:22. Margarita Herrera Dec 13, 2016 02:12 Ham Prabhakar MD December 17, 2016 07:17
[2016-12-13] MEDS: BUDESONIDE-FORMOTEROL 160/4.5 MCG INHALER INH SCH ×3 (02:55→21:19)
[2016-12-13] MEDS ORDERED: LEVOFLOXACIN 750 MG PREMIX INJ 150 ML IV SCH (03:00)
[2016-12-13] MEDS ORDERED: RESP: ALBUTEROL 2.5 MG/IPRATROPIUM 0.5 MG NEB (SCH) NEB (04:00)
--- NOTE | 2016-12-13 08:38 | HHI.PR ---
Subjective Remarks Follow up pneumonia and shortness of breath. Patient seen and examined this morning. He states his short of breath is a little better this am. Denies any associated fever, chills or chest pain. He complains of a cough with yellow sputum production. He states 2 weeks ago his PCP put him on Levaquin and prednisone. He wears o2 at home 11/03, and was using his nebulizers without any relief. Objective Vitals Vital Signs Date Time Temp Pulse Resp B/P Pulse Ox O2 Delivery O2 Flow Rate FiO2 12/13/16 07:19 98.3 69 17 143/72 97 12/13/16 03:34 69 12/13/16 03:24 98.2 67 18 113/67 96 12/13/16 02:29 72 22 121/75 97 Nasal Cannula 3 12/13/16 00:53 82 16 135/64 98 Nasal Cannula 3 12/12/16 23:35 97 Nasal Cannula 3.00 12/12/16 23:20 18 94 Nasal Cannula 3 12/12/16 23:18 92 Nasal Cannula 3 12/12/16 23:14 99 Nasal Cannula 4 12/12/16 23:01 98.3 70 16 142/90 100 I/O 12/12/16 12/12/16 12/12/16 12/13/16 12/13/16 12/13/16 07:00 15:00 23:00 07:00 15:00 23:00 Intake Total 100 ml Output Total 130 ml Balance -30 ml Intake IV Total 100 ml Output Urine Total 130 ml Result Diagram: 12/12/16231912/12/162319 Imaging Last Impressions Chest X-Ray 12/12/162323 Signed Impressions: Service Date/Time: Monday, December 12, 2016 23:27 - CONCLUSION: Mild focal infiltrate right upper lung. Edenilson Lloyd MD Objective Remarks GENERAL: This is a well-nourished, well-developed patient who has bilateral upper extremity tremors SKIN: No rashes, ecchymoses or lesions. Cool and dry. HEAD: Atraumatic. Normocephalic. No temporal or scalp tenderness. EYES: Extraocular motions intact. No scleral icterus. No injection or drainage. CARDIOVASCULAR: Regular rate and rhythm without murmurs, gallops, or rubs. RESPIRATORY: Tight Diminished lung sounds on the right, no wheezing. On 2L NC GASTROINTESTINAL: Abdomen soft, non-tender, nondistended. No guarding. MUSCULOSKELETAL: Extremities without clubbing, or cyanosis. Trace edema in bilateral lower extremities. No joint tenderness, effusion, or edema noted. No calf tenderness. NEUROLOGICAL: Awake and alert. Motor and sensory grossly within normal limits. Bilateral upper extremity tremors. Normal speech. Medications and IVs Current Medications Medications (Trade) Dose Ordered Sig/Vidal Route Start Time Stop Time Status Last Admin (NS Flush) 2 ml UNSCH PRN IV FLUSH 12/13/16 01:00 (NS Flush) 2 ml BID IV FLUSH 12/13/16 09:00 (Narcan Inj) 0.4 mg UNSCH PRN IV 12/13/16 01:00 (Cordarone) 200 mg DAILY PO 12/13/16 09:00 (Ecotrin Ec) 81 mg DAILY PO 12/13/16 09:00 (Lipitor) 20 mg HS PO 12/13/16 21:00 (Protonix) 40 mg DAILY PO 12/13/16 09:00 (Xarelto) 20 mg DAILY PO 12/13/16 09:00 (Zoloft) 50 mg DAILY PO 12/13/16 09:00 (Symbicort 160-4.5 Inh) 1 puff BID INH 12/13/16 02:30 12/13/16 02:55 Pneumococcal Polyvalent Vaccine 25 mcg 25 mcg ONCE ONCE IM 12/14/16 09:00 12/14/16 09:01 Azithromycin 500 mg/Sodium Chloride 250 ml @ 250 mls/hr Q24H IV 12/14/16 03:00 (Rocephin Inj/NS Inj) 100 ml @ 200 mls/hr Q24H IV 12/14/16 00:00 A/P Problem List: (1) PNA (pneumonia) ICD Code: J18.9 Status: Acute (2) COPD exacerbation ICD Code: J44.1 Status: Acute (3) A-fib ICD Code: I48.91 Status: Chronic Assessment and Plan This is a 71 year old male patient with a past medical history which includes Coronary artery disease with stent placement in 2013, 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 Patient reports shortness of breath off and on for one week. Patient reports his shortness of breath is usually resolved after nebulizer treatment at home but tonight the nebulizer did not relieve his shortness of breath, therefore patient pushed him life alert for assistance and was brought to the ER for evaluation and treatment. Patient reports he also has had a productive cough of yellow phlegm. Shortness of breath is associated with chest pain which patient reports feels like a muscle strain from working so hard to breath. Patient denies fevers, chills N/V/D. CXR reviewed by myself and Dr. Prabhakar reveals: Mild focal infiltrate right upper lung. PNA, COPD exacerbation, pt was on levaquin 2 weeks ago, community acquired CXR shows: Mild focal infiltrate right upper lung. -D/C Levaquin, Start Azitromyacin and rocephin IV -Continue Advair Diskus twice a day -Cont Duonebs [id number] and PRN -Supplemental oxygen titrate to maintain saturation above 90% -Sputum culture -Acapella -Check pneumococcal and legionella urinary antigen Atrial fibrillation s/p cardiac ablation- currently in SR -continue amiodarone and Xarelto -Continuous cardiac telemetry Bilateral resting upper extremity tremors discussed with patient the need for further follow-up with PCP and possible neurology evaluation Frequent urination particularly in the evening discussed with patient the need for follow-up with PCP possible BPH Other stable chronic medical conditions includes hyperlipidemia, GERD and depression continue home medications DVT prophylaxis patient is on Xarelto Lesly Grady Dec 13, 2016 08:38 Shannon Jain MD Dec 13, 2016 14:58
[2016-12-13] MEDS: PANTOPRAZOLE SOD 40 MG DELAYED RELEASE TAB PO SCH (10:42)
[2016-12-13] MEDS: ASPIRIN EC 81 MG TABEC PO SCH (10:42)
[2016-12-13] MEDS: SERTRALINE HCL 50 MG TAB PO SCH (10:42)
[2016-12-13] MEDS: SODIUM CHLORIDE 0.9% FLUSH 10 ML FLUSH IV FLUSH SCH ×2 (10:42→21:19)
[2016-12-13] MEDS: RIVAROXABAN 20 MG TAB PO SCH (10:42)
[2016-12-13] MEDS: AMIODARONE 200 MG TAB PO SCH (10:43)
[2016-12-13] MEDS: RESP: ALBUTEROL 2.5 MG/IPRATROPIUM 0.5 MG NEB (SCH) NEB ×2 (13:20→19:38)
--- NOTE | 2016-12-13 14:13 | EKG ---
Date Performed: 12/12/2016 Time Performed: 23:09:28 PTAGE: 71 years EKG: Sinus rhythm WITH SINUS ARRHYTHMIA WITH SHORT GA INTERVAL BORDERLINE LEFT AXIS DEVIATION BORDERLINE ECG Compared to prior tracing no significant change PREVIOUS TRACING : 10/18/2016 07.18 DOCTOR: Chris Kat Interpretating Date/Time 12/13/2016 14:08:54
[2016-12-13] MEDS: ATORVASTATIN 20 MG TAB PO SCH (21:19)
[2016-12-14] VITALS (10 sets, daily range): BP systolic 126–146; BP diastolic 66–77; PULSE 60–88; RESP 16–20; TEMP 97.6–98.1; O2SAT 92–98
[2016-12-14] MEDS: cefTRIAXone INJ 1,000 MG in SODIUM CHLORIDE 0.9% INJ 100 ML IV SCH (00:24)
[2016-12-14] MEDS: AZITHROMYCIN INJ 500 MG in SODIUM CHLOR 0.9% 250 ML INJ 250 ML IV SCH (02:51)
[2016-12-14 06:01] LABS: AUTOMATED NEUTROPHIL # 9.5 TH/MM3 (1.8-7.7); BASOPHIL % 0.1 % (0.0-2.0); EOSINOPHIL % 0.1 % (0.0-4.0); HEMATOCRIT 30.5 % (39.0-51.0); HEMO FLAGS DIFF FINAL; LYMPH % 5.7 % (9.0-44.0); LYMPHOCYTE # 0.7 TH/MM3 (1.0-4.8); MEAN CELL VOLUME 87.5 FL (80.0-100.0); MEAN CORPUSCULAR HEMOGLOBIN 28.3 PG (27.0-34.0); MEAN CORPUSCULAR HGB CONC 32.4 % (32.0-36.0); MONO % 10.3 % (0.0-8.0); NEUT % 83.8 % (16.0-70.0); PLATELET COUNT 194 TH/MM3 (150-450); RED BLOOD COUNT 3.48 MIL/MM3 (4.50-5.90); WHITE BLOOD COUNT 11.4 TH/MM3 (4.0-11.0)
[2016-12-14 06:08] LABS: BICARBONATE 26.9 MEQ/L (21.0-32.0)
[2016-12-14] MEDS: RESP: ALBUTEROL 2.5 MG/IPRATROPIUM 0.5 MG NEB (SCH) NEB ×4 (07:55→21:50)
--- NOTE | 2016-12-14 08:56 | HHI.PR ---
Subjective Remarks Follow up Shortness of breath. Patient states he is still wheezing and coughing a lot with yellow sputum production. Denies chest pain, fever or chills. States he is eating well. Objective Vitals Vital Signs Date Time Temp Pulse Resp B/P Pulse Ox O2 Delivery O2 Flow Rate FiO2 12/14/16 07:26 97.6 69 17 146/76 96 12/14/16 01:42 71 12/14/16 01:03 97.7 88 20 139/77 97 12/13/16 21:20 97.9 88 18 150/79 96 12/13/16 19:39 97 Nasal Cannula 3.00 12/13/16 15:46 98.3 81 19 152/70 98 12/13/16 11:21 98.3 78 17 122/59 97 12/13/16 10:30 84 I/O 12/13/16 12/13/16 12/13/16 12/14/16 12/14/16 12/14/16 07:00 15:00 23:00 07:00 15:00 23:00 Intake Total 100 ml Output Total 130 ml Balance -30 ml Intake IV Total 100 ml Output Urine Total 130 ml # Voids 1 1 Result Diagram: 12/14/16 0433 12/14/16 0433 Imaging Last Impressions Chest X-Ray 12/12/160 Signed Impressions: Service Date/Time: Monday, December 12, 2016 23:27 - CONCLUSION: Mild focal infiltrate right upper lung. Edenilson Lloyd MD Objective Remarks GENERAL: This is a well-nourished, well-developed patient who has bilateral upper extremity tremors SKIN: No rashes, ecchymoses or lesions. Cool and dry. HEAD: Atraumatic. Normocephalic. No temporal or scalp tenderness. EYES: Extraocular motions intact. No scleral icterus. No injection or drainage. CARDIOVASCULAR: Regular rate and rhythm without murmurs, gallops, or rubs. RESPIRATORY: Tight Diminished lung sounds on the right, wheezing throughout. On 2L NC GASTROINTESTINAL: Abdomen soft, non-tender, nondistended. No guarding. MUSCULOSKELETAL: Extremities without clubbing, or cyanosis. Trace edema in bilateral lower extremities. No joint tenderness, effusion, or edema noted. No calf tenderness. NEUROLOGICAL: Awake and alert. Motor and sensory grossly within normal limits. Bilateral upper extremity tremors. Normal speech. Medications and IVs Current Medications Medications (Trade) Dose Ordered Sig/Vidal Route Start Time Stop Time Status Last Admin (NS Flush) 2 ml UNSCH PRN IV FLUSH 12/13/16 01:00 (NS Flush) 2 ml BID IV FLUSH 12/13/16 09:00 12/13/16 21:19 (Narcan Inj) 0.4 mg UNSCH PRN IV 12/13/16 01:00 (Cordarone) 200 mg DAILY PO 12/13/16 09:00 12/13/16 10:43 (Ecotrin Ec) 81 mg DAILY PO 12/13/16 09:00 12/13/16 10:42 (Lipitor) 20 mg HS PO 12/13/16 21:00 12/13/16 21:19 (Protonix) 40 mg DAILY PO 12/13/16 09:00 12/13/16 10:42 (Xarelto) 20 mg DAILY PO 12/13/16 09:00 12/13/16 10:42 (Zoloft) 50 mg DAILY PO 12/13/16 09:00 12/13/16 10:42 (Symbicort 160-4.5 Inh) 1 puff BID INH 12/13/16 02:30 12/13/16 21:19 Pneumococcal Polyvalent Vaccine 25 mcg 25 mcg ONCE ONCE IM 12/14/16 09:00 12/14/16 09:01 Azithromycin 500 mg/Sodium Chloride 250 ml @ 250 mls/hr Q24H IV 12/14/16 03:00 12/14/16 02:51 (Rocephin Inj/NS Inj) 100 ml @ 200 mls/hr Q24H IV 12/14/16 00:00 12/14/16 00:24 A/P Problem List: (1) PNA (pneumonia) ICD Code: J18.9 Status: Acute (2) COPD exacerbation ICD Code: J44.1 Status: Acute (3) A-fib ICD Code: I48.91 Status: Chronic Assessment and Plan This is a 71 year old male patient with a past medical history which includes Coronary artery disease with stent placement in 2013, 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 Patient reports shortness of breath off and on for one week. Patient reports his shortness of breath is usually resolved after nebulizer treatment at home but tonight the nebulizer did not relieve his shortness of breath, therefore patient pushed him life alert for assistance and was brought to the ER for evaluation and treatment. Patient reports he also has had a productive cough of yellow phlegm. Shortness of breath is associated with chest pain which patient reports feels like a muscle strain from working so hard to breath. Patient denies fevers, chills N/V/D. CXR reviewed by myself and Dr. Prabhakar reveals: Mild focal infiltrate right upper lung. PNA, COPD exacerbation, pt was on levaquin 2 weeks ago, community acquired, WBC CXR shows: Mild focal infiltrate right upper lung. -Cont Azitromyacin and rocephin IV -Continue Advair Diskus twice a day -Frederick Duonebs [id number] and Q2 PRN -Supplemental oxygen titrate to maintain saturation above 90% -Sputum culture pending -Cont Acapella, and incentive spirometer -pneumococcal and legionella urinary antigen negative -PT recommending cardio/ pulmonary rehab -Add Solumedrol 40mg IVQ6h Atrial fibrillation s/p cardiac ablation- currently in SR -continue amiodarone and Xarelto -Continuous cardiac telemetry Bilateral resting upper extremity tremors discussed with patient the need for further follow-up with PCP and possible neurology evaluation Frequent urination particularly in the evening discussed with patient the need for follow-up with PCP possible BPH Other stable chronic medical conditions includes hyperlipidemia, GERD and depression continue home medications DVT prophylaxis patient is on Xarelto Written by DAISY Boyer acting as scribe for [Susy] on 12/14/16 at 11 :20. This note was transcribed by scribYakelin VILLA. I, Dr. Shannon Jain personally performed the history, physical exam, and medical decision making; and confirmed the accuracy of the information in the transcribed note. Authenticated by Dr. Shannon Jain on 12/14/16 at 11:20. Discharge Planning Pending clinical improvement Lesly Grady Dec 14, 2016 08:56 Shannon Jain MD Dec 14, 2016 12:27
[2016-12-14] MEDS ORDERED: PNEUMOCOCCAL POLYVALENT INJ 25 MCG/0.5 ML SYR IM ONE (09:00)
[2016-12-14] MEDS: SODIUM CHLORIDE 0.9% FLUSH 10 ML FLUSH IV FLUSH SCH ×2 (09:58→19:47)
[2016-12-14] MEDS: BUDESONIDE-FORMOTEROL 160/4.5 MCG INHALER INH SCH ×2 (10:00→19:46)
[2016-12-14] MEDS: ASPIRIN EC 81 MG TABEC PO SCH (10:00)
[2016-12-14] MEDS: PANTOPRAZOLE SOD 40 MG DELAYED RELEASE TAB PO SCH (10:00)
[2016-12-14] MEDS: RIVAROXABAN 20 MG TAB PO SCH (10:00)
[2016-12-14] MEDS: AMIODARONE 200 MG TAB PO SCH (10:00)
[2016-12-14] MEDS: SERTRALINE HCL 50 MG TAB PO SCH (10:00)
[2016-12-14] MEDS ORDERED: RESP: ALBUTEROL 2.5 MG/IPRATROPIUM 0.5 MG NEB (PRN) NEB (12:00)
[2016-12-14] MEDS: methylPREDNISolone SOD SUCC 40 MG/1 ML VIAL IV PUSH SCH ×2 (12:33→17:46)
[2016-12-14] MEDS: ATORVASTATIN 20 MG TAB PO SCH (19:46)
[2016-12-15] VITALS (9 sets, daily range): BP systolic 122–136; BP diastolic 63–83; PULSE 57–76; RESP 18–20; TEMP 97.9–98.6; O2SAT 96–98
[2016-12-15] MEDS: methylPREDNISolone SOD SUCC 40 MG/1 ML VIAL IV PUSH SCH ×5 (00:35→23:06)
[2016-12-15] MEDS: cefTRIAXone INJ 1,000 MG in SODIUM CHLORIDE 0.9% INJ 100 ML IV SCH ×2 (00:36→23:07)
[2016-12-15] MEDS: AZITHROMYCIN INJ 500 MG in SODIUM CHLOR 0.9% 250 ML INJ 250 ML IV SCH (03:17)
[2016-12-15 08:10] LABS: AUTOMATED NEUTROPHIL # 9.3 TH/MM3 (1.8-7.7); BASOPHIL % 0.1 % (0.0-2.0); HEMATOCRIT 33.5 % (39.0-51.0); HEMO FLAGS DIFF FINAL; LYMPH % 2.4 % (9.0-44.0); LYMPHOCYTE # 0.2 TH/MM3 (1.0-4.8); MEAN CELL VOLUME 87.7 FL (80.0-100.0); MEAN CORPUSCULAR HEMOGLOBIN 28.3 PG (27.0-34.0); MEAN CORPUSCULAR HGB CONC 32.2 % (32.0-36.0); MONO % 2.8 % (0.0-8.0); NEUT % 94.7 % (16.0-70.0); PLATELET COUNT 206 TH/MM3 (150-450); RED BLOOD COUNT 3.82 MIL/MM3 (4.50-5.90); RED CELL DISTRIBUTION WIDTH 18.2 % (11.6-17.2); WHITE BLOOD COUNT 9.8 TH/MM3 (4.0-11.0)
[2016-12-15 08:18] LABS: BICARBONATE 23.7 MEQ/L (21.0-32.0); POTASSIUM 3.9 MEQ/L (3.5-5.1)
[2016-12-15] MEDS: PANTOPRAZOLE SOD 40 MG DELAYED RELEASE TAB PO SCH (08:32)
[2016-12-15] MEDS: RIVAROXABAN 20 MG TAB PO SCH (08:32)
[2016-12-15] MEDS: AMIODARONE 200 MG TAB PO SCH (08:32)
[2016-12-15] MEDS: SODIUM CHLORIDE 0.9% FLUSH 10 ML FLUSH IV FLUSH SCH ×2 (08:32→23:06)
[2016-12-15] MEDS: SERTRALINE HCL 50 MG TAB PO SCH (08:32)
[2016-12-15] MEDS: ASPIRIN EC 81 MG TABEC PO SCH (08:32)
[2016-12-15] MEDS: BUDESONIDE-FORMOTEROL 160/4.5 MCG INHALER INH SCH ×2 (08:33→23:06)
[2016-12-15] MEDS: RESP: ALBUTEROL 2.5 MG/IPRATROPIUM 0.5 MG NEB (SCH) NEB ×4 (08:57→19:03)
--- NOTE | 2016-12-15 19:32 | HHI.PR ---
Subjective Remarks Patient seen this morning. Says he is feeling a little better. Still with cough, shortness of breath, very short of breath coming back from bathroom to bed. Objective Vital Signs Date Time Temp Pulse Resp B/P Pulse Ox O2 Delivery O2 Flow Rate FiO2 12/15/16 18:26 98.6 76 18 131/63 96 12/15/16 14:59 98 Nasal Cannula 3.00 12/15/16 13:09 97.9 68 20 122/66 98 12/15/16 09:15 97.9 58 20 124/83 97 12/15/16 08:57 97 Nasal Cannula 3.00 12/15/16 08:01 57 12/15/16 04:00 98.0 60 19 136/66 96 12/15/16 00:00 98.4 66 19 128/81 97 12/14/16 21:54 97 Nasal Cannula 2.00 12/14/16 20:15 73 12/14/16 20:00 98.0 63 18 130/74 97 I/O 12/14/16 12/14/16 12/14/16 12/15/16 12/15/16 12/15/16 07:00 15:00 23:00 07:00 15:00 23:00 Intake Total 960 ml 630 ml Output Total 220 ml Balance 960 ml 410 ml Intake Oral 960 ml 240 ml IV Total 390 ml Output Urine Total 220 ml # Voids 1 5 4 Result Diagram: 12/15/16 0714 12/15/16 0714 Imaging Last Impressions Chest X-Ray 12/12/16 5654 Signed Impressions: Service Date/Time: Monday, December 12, 2016 23:27 - CONCLUSION: Mild focal infiltrate right upper lung. Edenilson Lloyd MD Objective Remarks GENERAL: patient lying in bed. Appears comfortable. Alert and oriented 3. SKIN: Warm and dry. HEAD: Normocephalic. EYES: No scleral icterus. No injection or drainage. NECK: Supple, trachea midline. No JVD. CARDIOVASCULAR: Regular rate and rhythm without murmurs, gallops, or rubs. RESPIRATORY: Breath sounds equal bilaterally. No accessory muscle use.patient has rhonchi bilaterally which clear slightly with coughing. GASTROINTESTINAL: Abdomen soft, non-tender, nondistended. MUSCULOSKELETAL: No cyanosis, or edema. BACK: Nontender without obvious deformity. No CVA tenderness. A/P Assessment and Plan This is a 71 year old male patient with a past medical history which includes Coronary artery disease with stent placement in 2013, 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 Patient reports shortness of breath off and on for one week. Patient reports his shortness of breath is usually resolved after nebulizer treatment at home but tonight the nebulizer did not relieve his shortness of breath, therefore patient pushed him life alert for assistance and was brought to the ER for evaluation and treatment. Patient reports he also has had a productive cough of yellow phlegm. Shortness of breath is associated with chest pain which patient reports feels like a muscle strain from working so hard to breath. Patient denies fevers, chills N/V/D. CXR reveals: Mild focal infiltrate right upper lung. //PNA, COPD exacerbation, pt was on levaquin 2 weeks ago, community acquired, WBC -CXR shows: Mild focal infiltrate right upper lung. -Cont Azitromyacin and rocephin IV -Continue Advair Diskus twice a day -Frederick Duonebs [id number] and Q2 PRN -Supplemental oxygen titrate to maintain saturation above 90% -Sputum culture heavy growth respiratory ivis -Cont Acapella, and incentive spirometer -pneumococcal and legionella urinary antigen negative -PT recommending cardio/ pulmonary rehab -cont Solumedrol 40mg IVQ6h -12/15. Improving slowly. Add incentive spirometry and Acapella //Atrial fibrillation s/p cardiac ablation- currently in SR -continue amiodarone and Xarelto -Continuous cardiac telemetry //Bilateral resting upper extremity tremors discussed with patient the need for further follow-up with PCP and possible neurology evaluation //Frequent urination particularly in the evening discussed with patient the need for follow-up with PCP possible BPH //Other stable chronic medical conditions includes hyperlipidemia, GERD and depression -continue home medications DVT prophylaxis patient is on Xarelto Discharge Planning home oxygen assessment pending Patient would likely benefit from outpatient cardiopulmonary rehabilitation. Camilo Clarke MD Dec 15, 2016 19:32
[2016-12-15] MEDS: ATORVASTATIN 20 MG TAB PO SCH (23:07)
[2016-12-16] VITALS: BP 146/71; PULSE 70; RESP 18; TEMP 97.7; O2SAT 97
[2016-12-16] MEDS: AZITHROMYCIN INJ 500 MG in SODIUM CHLOR 0.9% 250 ML INJ 250 ML IV SCH (03:25)
[2016-12-16 04:00] VITALS: BP 153/73; PULSE 73; RESP 19; TEMP 97.6; O2SAT 97
--- NOTE | 2016-12-16 04:23 | RADRPT ---
EXAM DATE/TIME: 12/16/2016 03:27 [facility] COMPARISON: No previous studies available for comparison. INDICATIONS : Shortness of breath, possible pulmonary disease. MEDICAL HISTORY : None. SURGICAL HISTORY : Coronary artery stent. ENCOUNTER: Subsequent ACUITY: 4 - 6 days PAIN SCORE: 0/10 LOCATION: Bilateral chest FINDINGS: A single view of the chest demonstrates the lungs to be symmetrically aerated without evidence of mas s, infiltrate or effusion. The cardiomediastinal contours are unremarkable. Osseous structures are intact. CONCLUSION: No evidence of acute cardiopulmonary disease. Earl Potts MD on December 16, 2016 at 4:21 Board Certified Radiologist. This report was verified electronically.
[2016-12-16] MEDS: RESP: ALBUTEROL 2.5 MG/IPRATROPIUM 0.5 MG NEB (SCH) NEB ×2 (07:41→11:21)
[2016-12-16 07:42] VITALS: O2SAT 95
[2016-12-16 08:00] VITALS: BP 133/86; PULSE 71; RESP 18; TEMP 97; O2SAT 96
[2016-12-16 08:03] VITALS: PULSE 73
[2016-12-16] MEDS: methylPREDNISolone SOD SUCC 40 MG/1 ML VIAL IV PUSH SCH ×2 (08:29→13:58)
[2016-12-16] MEDS: SERTRALINE HCL 50 MG TAB PO SCH (08:30)
[2016-12-16] MEDS: PANTOPRAZOLE SOD 40 MG DELAYED RELEASE TAB PO SCH (08:30)
[2016-12-16] MEDS: SODIUM CHLORIDE 0.9% FLUSH 10 ML FLUSH IV FLUSH SCH (08:31)
[2016-12-16] MEDS: BUDESONIDE-FORMOTEROL 160/4.5 MCG INHALER INH SCH (08:31)
[2016-12-16] MEDS: AMIODARONE 200 MG TAB PO SCH (08:31)
[2016-12-16] MEDS: ASPIRIN EC 81 MG TABEC PO SCH (08:31)
[2016-12-16] MEDS: RIVAROXABAN 20 MG TAB PO SCH (08:31)
[2016-12-16] MEDS ORDERED: PRED10PA2 PO (10:36)
[2016-12-16] MEDS ORDERED: IPRASOL NEB ×2 (10:36)
--- NOTE | 2016-12-16 10:45 | HHI.FF ---
Face to Face Verification Diagnosis: (1) COPD exacerbation (2) COPD (chronic obstructive pulmonary disease) Home Health Nursing Order: Nursing assessment with vital signs I have seen patient Daniel Bunch on 12/16/16. My clinical findings support the need for the requested home health care services because: Deconditioned w/ increased weakness I certify that my clinical findings support that this patient is homebound because: Hx COPD- exertion dyspnea/weakness Camilo Clarke MD Dec 16, 2016 10:45
[2016-12-16] MEDS ORDERED: AZIT250T3 PO (10:47)
[2016-12-16 11:30] VITALS: O2SAT 93
[2016-12-16 12:14] LABS: AUTOMATED NEUTROPHIL # 12.2 TH/MM3 (1.8-7.7); BASOPHIL % 0.1 % (0.0-2.0); HEMO FLAGS DIFF FINAL; LYMPH % 2.1 % (9.0-44.0); LYMPHOCYTE # 0.3 TH/MM3 (1.0-4.8); MEAN CORPUSCULAR HEMOGLOBIN 28.3 PG (27.0-34.0); MEAN CORPUSCULAR HGB CONC 32.2 % (32.0-36.0); MONO % 3.4 % (0.0-8.0); NEUT % 94.4 % (16.0-70.0); PLATELET COUNT 193 TH/MM3 (150-450); RED BLOOD COUNT 3.63 MIL/MM3 (4.50-5.90); WHITE BLOOD COUNT 12.9 TH/MM3 (4.0-11.0)
[2016-12-16 12:32] LABS: BICARBONATE 22.3 MEQ/L (21.0-32.0); MAGNESIUM 2.1 MG/DL (1.5-2.5); POTASSIUM 4.2 MEQ/L (3.5-5.1)
--- NOTE | 2016-12-18 13:26 | HHI.DS ---
Discharge Summary Admission Date Dec 13, 2016 at 01:06 Discharge Date: Dec 16, 2016 Admitting Diagnosis pneumonia, failure of adequate outpatient treatment (1) PNA (pneumonia) ICD Code: J18.9 (2) COPD exacerbation ICD Code: J44.1 (3) A-fib ICD Code: I48.91 Procedures no invasive procedures. Brief History - From Admission This is a 71 year old male patient with a past medical history which includes Coronary artery disease with stent placement in 2013, 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 Patient reports shortness of breath off and on for one week. Patient reports his shortness of breath is usually resolved after nebulizer treatment at home but tonight the nebulizer did not relieve his shortness of breath, therefore patient pushed him life alert for assistance and was brought to the ER for evaluation and treatment. Patient reports he also has had a productive cough of yellow phlegm. Shortness of breath is associated with chest pain which patient reports feels like a muscle strain from working so hard to breath. Patient denies fevers, chills N/V/D. Patient has resting bilateral upper extremity tremor. Patient reports this has been present for 2-3 years. He also reports difficulty with writing. Patient also reports frequent urination urinates 2-3 times a night for the past one year. Denies dysuria. CXR reviewed by myself and Dr. Prabhakar reveals: Mild focal infiltrate right upper lung. CBC/BMP: 12/16/16 0913 12/16/16 0913 Significant Findings Laboratory Tests Test 12/16/16 09:13 White Blood Count 12.9 TH/MM3 (4.0-11.0) Red Blood Count 3.63 MIL/MM3 (4.50-5.90) Hemoglobin 10.3 GM/DL (13.0-17.0) Hematocrit 32.0 % (39.0-51.0) Red Cell Distribution Width 18.0 % (11.6-17.2) Neutrophils (%) (Auto) 94.4 % (16.0-70.0) Lymphocytes (%) (Auto) 2.1 % (9.0-44.0) Neutrophils # (Auto) 12.2 TH/MM3 (1.8-7.7) Lymphocytes # (Auto) 0.3 TH/MM3 (1.0-4.8) Blood Urea Nitrogen 28 MG/DL (7-18) Estimat Glomerular Filtration 68 ML/MIN (>89) Rate Random Glucose 156 MG/DL (74-106) Albumin 2.8 GM/DL (3.4-5.0) Imaging Last Impressions Chest X-Ray 12/16/16 0600 Signed Impressions: Service Date/Time: Friday, December 16, 2016 03:27 - CONCLUSION: No evidence of acute cardiopulmonary disease. Earl Potts MD PE at Discharge GENERAL: This is a well-nourished, well-developed patient who has bilateral upper extremity tremors SKIN: No rashes, ecchymoses or lesions. Cool and dry. HEAD: Atraumatic. Normocephalic. No temporal or scalp tenderness. EYES: Extraocular motions intact. No scleral icterus. No injection or drainage. CARDIOVASCULAR: Regular rate and rhythm without murmurs, gallops, or rubs. RESPIRATORY: Tight Diminished lung sounds on the right, wheezing throughout. On 2L NC GASTROINTESTINAL: Abdomen soft, non-tender, nondistended. No guarding. MUSCULOSKELETAL: Extremities without clubbing, or cyanosis. Trace edema in bilateral lower extremities. No joint tenderness, effusion, or edema noted. No calf tenderness. NEUROLOGICAL: Awake and alert. Motor and sensory grossly within normal limits. Bilateral upper extremity tremors. Normal speech. Pt update on day of discharge pt doing well. no cp. sob much better. would like to go home. has o2 Hospital Course Chest x-ray on admission with mild focal infiltrate right upper lung. Patient was treated with oxygen, IV steroids, antibiotics, with improvement in shortness of breath. He was discharged home with steroid taper, azithromycin, DuoNeb's. For problem-based summery for most recent progress note, please see below. //PNA, COPD exacerbation, pt was on levaquin 2 weeks ago, community acquired, WBC -CXR shows: Mild focal infiltrate right upper lung. -Cont Azitromyacin and rocephin IV -Continue Advair Diskus twice a day -Frederick Duonebs L6qnoux and Q2 PRN -Supplemental oxygen titrate to maintain saturation above 90% -Sputum culture heavy growth respiratory ivis -Cont Acapella, and incentive spirometer -pneumococcal and legionella urinary antigen negative -PT recommending cardio/ pulmonary rehab -cont Solumedrol 40mg IVQ6h -12/15. Improving slowly. Add incentive spirometry and Acapella -12/16. Continues improvement. Transition to by mouth prednisone, azithromycin. Can follow-up with pulmonology as outpatient to set up pulmonary rehabilitation. DuoNeb's //Atrial fibrillation s/p cardiac ablation- currently in SR -continue amiodarone and Xarelto -Continuous cardiac telemetry //Bilateral resting upper extremity tremors discussed with patient the need for further follow-up with PCP and possible neurology evaluation //Frequent urination particularly in the evening discussed with patient the need for follow-up with PCP possible BPH //Other stable chronic medical conditions includes hyperlipidemia, GERD and depression -continue home medications DVT prophylaxis patient is on Xarelto Discharge Planning home oxygen assessment pending Patient would likely benefit from outpatient cardiopulmonary rehabilitation. Pt Condition on Discharge: Good Discharge Disposition: Disch w/ Home Health Serv Discharge Time: <= 30 minutes Discharge Instructions DIET: Follow Instructions for: As Tolerated, No Restrictions Activities you can perform: Regular-No Restrictions Follow up Referrals: PCP Follow-up - 1 Week with Khari Wellington MD Pulmonology - 1 Week with Bev Hayes MD New Medications: Azithromycin (Azithromycin) 250 Mg Tab 250 MG PO DAILY Infection #2 Ref 0 TAB Prednisone (48) 10 mg tab Dose Pack (Prednisone (48) 10 mg tab Dose Pack) 10 Mg Dspk 10 MG PO DIRECTED Inflammation #1 Ref 0 DSPK Ipratropium-Albuterol Neb (Duoneb) 0.5-2.5 Mg/3 Ml Neb 1 AMPULE NEB Q6HR Broncospasm Days 30 ML Continued Medications: Amiodarone (Amiodarone) 200 Mg Tab 200 MG PO DAILY Regulate Heart Beat #30 Ref 0 TAB Aspirin (Aspirin) 81 Mg Tabdr 81 MG PO DAILY TAB Atorvastatin (Atorvastatin) 20 Mg Tab 20 MG PO HS Cholesterol Management #30 Ref 0 TAB Fluticasone-Salmeterol Inh (Advair Diskus Inh) 500-50 Mcg/Blist Aer 1 PUFF INH BID Rinse mouth after use. #1 Ref 0 INHALER Folic Acid (Folic Acid) 5 Mg Cap 1 MG PO DAILY Nutritional Supplement Ref 0 CAP Multiple Vitamins W/ Minerals (Centrum Silver) 1 Tab 1 TAB PO DAILY Nutritional Supplement Ref 0 TAB Pantoprazole (Pantoprazole) 40 Mg Tab 40 MG PO DAILY Reflux #30 Ref 0 TAB Rivaroxaban (Xarelto) 20 Mg Tab 20 MG PO DAILY Blood Clot Prevention Ref 0 TAB Sertraline (Sertraline) 50 Mg Tab 50 MG PO DAILY #30 Ref 0 TAB Tizanidine (Tizanidine) 4 Mg Cap 4 MG PO TID Muscle Spasm Ref 0 CAP Camilo Clarke MD December 18, 2016 13:26
== END 2016-12-16 14:17 | disposition home health service (06) | DRG 194 ==
LOC: NEPC 22:58 → NEDA 12-13 01:06 → OBSVTOIN 12-13 01:06 → NEPGCP 12-13 02:33 → HOCA 12-14 15:59 → NEPGCP 12-14 16:16 → HOCA 12-14 16:51
PROVIDERS: ADMIT Internal Medicine; ATTEND Internal Medicine
DX: J18.9 Pneumonia, unspecified organism (principal); J44.1 Chronic obstructive pulmonary disease with (acute) exacerbation; J44.0 Chronic obstructive pulmonary disease with (acute) lower respiratory infection; I48.2 Chronic atrial fibrillation; Z99.81 Dependence on supplemental oxygen; E78.5 Hyperlipidemia, unspecified; I10 Essential (primary) hypertension; I25.10 Atherosclerotic heart disease of native coronary artery without angina pectoris; K21.9 Gastro-esophageal reflux disease without esophagitis; Z79.01 Long term (current) use of anticoagulants; F32.9 Major depressive disorder, single episode, unspecified; Z86.73 Personal history of transient ischemic attack (TIA), and cerebral infarction without residual deficits; Z95.5 Presence of coronary angioplasty implant and graft
CPT/HCPCS: 36600; 71010; 71020; 80048; 80069; 81001; 82805; 83735; 83880; 84484; 85025; 87040; 87070; 87205; 87449; 90732; 93005; 94150; 94620; 94640; 94664; 94667; 94668; 96365; G8987-GP; G8988-GP; J0456; J0696; J1956; J2920; J7050

== ENCOUNTER 2016-12-17 17:47 | Inpatient (IN) | payer OTHER, MEDICARE ==
[~2016-12-17] VITALS: Ht 177.8 cm; Wt 75.4 kg
[2016-12-17] VITALS (13 sets, daily range): BP systolic 116–210; BP diastolic 62–131; PULSE 78–116; RESP 16–38; TEMP 98.3–98.7; O2SAT 98–100
[~2016-12-17 17:47] MED LIST changes: -ADVA100A INH; +ADVA500A INH; +CENTTAB PO; +IPRASOL NEB; +PRED10PA2 PO; -PRED20 PO
[2016-12-17] MEDS ORDERED: PROPOFOL 1000 MG/100 ML INJ 100 ML ONE (17:52)
[2016-12-17] MEDS ORDERED: SODIUM CHLORIDE 0.9% FLUSH 10 ML FLUSH IVF PRN (18:00)
[2016-12-17] MEDS ORDERED: CEFEPIME INJ 2,000 MG in SODIUM CHLORIDE 0.9% INJ 100 ML IV ONE (18:00)
[2016-12-17] MEDS ORDERED: PROPOFOL 1000 MG/100 ML INJ 100 ML IV SCH (18:00)
--- NOTE | 2016-12-17 18:21 | RADRPT ---
EXAM DATE/TIME: 12/17/2016 17:54 [facility] COMPARISON: CHEST SINGLE AP, December 16, 2016, 3:27. INDICATIONS : Post intubation MEDICAL HISTORY : None. ENCOUNTER: Subsequent ACUITY: 2 days PAIN SCORE: Non-responsive. LOCATION: chest FINDINGS: Endotracheal tube is present with tip just above the linda. There is mild perihilar interstitial pro minence. No evidence of alveolar consolidation or pleural effusion. Cardiac contours are satisfactory for technique and projection. CONCLUSION: Satisfactory ET tube positioning. Earl Zapata MD on December 17, 2016 at 18:17 Board Certified Radiologist. This report was verified electronically.
--- NOTE | 2016-12-17 18:34 | PD ---
HPI Chief Complaint: Respiratory Distress Time Seen by Provider: 17:53 Travel History International Travel<30 days: No Contact w/Intl Traveler<30days: No Traveled to known affect area: No History of Present Illness HPI 71-year-old male with a history of COPD, coronary artery disease, atrial fibrillation who was discharged recently following admission for pneumonia returns by EMS in severe respiratory distress. The patient was discharged on prednisone and azithromycin. In the ER he states "I can't breathe" and continues "help me." EMS gave 4 breathing treatments en route and 125 mg of Solu-Medrol. His O2 sat was in the low 80s and prior documented administration and then increased to the mid 90s upon ER arrival. Patient tachypneic to about 40 breaths minute. Patient was intubated shortly following arrival. PFSH Past Medical History Hx Anticoagulant Therapy: Yes Arthritis: No Asthma: No Atrial Fibrillation: Yes Autoimmune Disease: No Blood Disorders: No Anxiety: No Depression: Yes Heart Rhythm Problems: Yes Cancer: No Cardiovascular Problems: Yes (a-fib) High Cholesterol: Yes Chemotherapy: No Chest Pain: No Congestive Heart Failure: No COPD: Yes Cerebrovascular Accident: Yes (@10 years ago) Coronary Artery Disease: Yes Diabetes: No Diminished Hearing: No Endocrine: No Gastrointestinal Disorders: Yes GERD: Yes Genitourinary: Yes (STAGE 2 CKD) Headaches: No Hiatal Hernia: Yes Hypertension: Yes Immune Disorder: No Inguinal Hernia: Yes Kidney Stones: No Musculoskeletal: Yes Neurologic: Yes (CVA SEVERAL YEARS AGO) Psychiatric: Yes Reproductive: No Respiratory: Yes (COPD) Immunizations Current: Yes Migraines: No Radiation Therapy: No Seizures: No Sickle Cell Disease: No Sleep Apnea: No Thyroid Disease: No Ulcer: No Past Surgical History Abdominal Surgery: Yes (HERNIA REPAIR) AICD: No Appendectomy: Yes Arteriovenous Shunt: No Cardiac Surgery: Yes (Stent, 2 ablations) Ear Surgery: No Endocrine Surgery: No Eye Surgery: Yes (Bilateral cataracts) Genitourinary Surgery: No Gynecologic Surgery: Yes Insulin Pump: No Joint Replacement: No Neurologic Surgery: No Oral Surgery: Yes (Dental surgery) Pacemaker: No Thoracic Surgery: No Tonsillectomy: Yes Other Surgery: Yes (fatty tumor back) Social History Alcohol Use: Yes Tobacco Use: No (1995) Substance Use: No Allergies-Medications (Allergen,Severity, Reaction): Coded Allergies: Codeine (Verified Allergy, Intermediate, 5/1/17) Reported Meds & Prescriptions Reported Meds & Active Scripts Active Azithromycin 250 Mg Tab 250 Mg PO DAILY Prednisone (48) 10 mg tab Dose Pack (Prednisone) 10 Mg Dspk 10 Mg PO DIRECTED Duoneb (Ipratropium-Albuterol Neb) 0.5-2.5 Mg/3 Ml Neb 1 Ampule NEB Q6HR 30 Days Reported Centrum Silver (Multiple Vitamins W/ Minerals) 1 Tab 1 Tab PO DAILY Advair Diskus Inh (Fluticasone-Salmeterol Inh) 500-50 Mcg/Blist Aer 1 Puff INH BID Rinse mouth after use. Xarelto (Rivaroxaban) 20 Mg Tab 20 Mg PO DAILY Tizanidine (Tizanidine HCl) 4 Mg Cap 4 Mg PO TID Sertraline (Sertraline HCl) 50 Mg Tab 50 Mg PO DAILY Pantoprazole (Pantoprazole Sodium) 40 Mg Tab 40 Mg PO DAILY Folic Acid 5 Mg Cap 1 Mg PO DAILY Atorvastatin (Atorvastatin Calcium) 20 Mg Tab 20 Mg PO HS Aspirin 81 Mg Tabdr 81 Mg PO DAILY Amiodarone (Amiodarone HCl) 200 Mg Tab 200 Mg PO DAILY Review of Systems ROS Limitations: Intubated Physical Exam Narrative GENERAL: 71 yo M, severe respiratory distress SKIN: Diaphoretic HEAD: Atraumatic. Normocephalic. EYES: Pupils equal and round. No scleral icterus. No injection or drainage. ENT: No nasal bleeding or discharge. Mucous membranes pink and moist. NECK: Trachea midline. No JVD. CARDIOVASCULAR: Tachycardia. Regular rhythm. RESPIRATORY: Tachypnea. Wheezing in all boland. GASTROINTESTINAL: Abdomen soft, non-tender, nondistended. Hepatic and splenic margins not palpable. MUSCULOSKELETAL: Extremities without clubbing, cyanosis, or edema. No obvious deformities. NEUROLOGICAL: Awake and alert. No obvious cranial nerve deficits. Motor grossly within normal limits. Five out of 5 muscle strength in the arms and legs. Normal speech. PSYCHIATRIC: Appropriate mood and affect; insight and judgment normal. Data Data Last Documented VS Vital Signs Date Time Temp Pulse Resp B/P Pulse Ox O2 Delivery O2 Flow Rate FiO2 12/17/16 19:18 99 50 12/17/16 19:02 100 16 160/107 Ventilator 12/17/16 18:15 2 12/17/16 18:06 98.3 VS reviewed Orders Propofol 1000 Mg/100 Ml Inj (Diprivan 10 (12/17/16 17:52) Complete Blood Count With Diff (12/17/16 17:53) Basic Metabolic Panel (Bmp) (12/17/16 17:53) B-Type Natriuretic Peptide (12/17/16 17:53) Act Partial Throm Time (Ptt) (12/17/16 17:53) Prothrombin Time / Inr (Pt) (12/17/16 17:53) Magnesium (Mg) (12/17/16 17:53) Ckmb (Isoenzyme) Profile (12/17/16 17:53) Troponin I (12/17/16 17:53) Blood Culture (12/17/16 17:53) Iv Access Insert/Monitor (12/17/16 17:53) Electrocardiogram (12/17/16 17:53) Ecg Monitoring (12/17/16 17:53) Oximetry (12/17/16 17:53) Oxygen Administration (12/17/16:53) Chest, Single Ap (12/17/16 17:53) Urinary Catheter Insert/Apply (12/17/16 17:53) Sodium Chloride 0.9% Flush (Ns Flush) (12/17/16 18:00) ^ Orogastric Tube (12/17/16 17:53) Propofol 1000 Mg/100 Ml Inj (Diprivan 10 (12/17/16 18:00) ^ Infusion (12/17/16 17:53) Cefepime Inj (Maxipime Inj) (12/17/16 18:00) Lactic Acid (12/17/16 18:07) Arterial Blood Gas (Abg) (12/17/16 ) Etomidate Inj (Amidate Inj) (12/17/16 19:00) Rocuronium Inj (Zemuron Inj) (12/17/16 19:00) Sodium Chlor 0.9% 1000 Ml Inj (Ns 1000 M (12/17/16 19:30) CKMB (12/17/16 18:00) CKMB% (12/17/16 18:00) Admit Order (Ed Use Only) (12/17/16 19:18) Labs Laboratory Tests Test 12/17/16 12/17/16 12/17/16 18:00 18:09 18:54 White Blood Count 21.2 TH/MM3 Red Blood Count 4.23 MIL/MM3 Hemoglobin 12.0 GM/DL Hematocrit 37.2 % Mean Corpuscular Volume 88.2 FL Mean Corpuscular Hemoglobin 28.5 PG Mean Corpuscular Hemoglobin 32.3 % Concent Red Cell Distribution Width 18.0 % Platelet Count 379 TH/MM3 Mean Platelet Volume 9.3 FL Neutrophils (%) (Auto) 81.6 % Lymphocytes (%) (Auto) 5.9 % Monocytes (%) (Auto) 11.6 % Eosinophils (%) (Auto) 0.6 % Basophils (%) (Auto) 0.3 % Neutrophils # (Auto) 17.3 TH/MM3 Lymphocytes # (Auto) 1.3 TH/MM3 Monocytes # (Auto) 2.4 TH/MM3 Eosinophils # (Auto) 0.1 TH/MM3 Basophils # (Auto) 0.1 TH/MM3 CBC Comment AUTO DIFF Differential Total Cells 100 Counted Neutrophils % (Manual) 82 % Band Neutrophils % 3 % Lymphocytes % 8 % Monocytes % 6 % Neutrophils # (Manual) 18.2 TH/MM3 Myelocytes 1 % Differential Comment FINAL DIFF MANUAL Platelet Estimate NORMAL Platelet Morphology Comment NORMAL Ovalocytes 1+ Keratocytes OCC Prothrombin Time 13.0 SEC Prothromb Time International 1.2 RATIO Ratio Activated Partial 27.8 SEC Thromboplast Time Sodium Level 140 MEQ/L Potassium Level 4.5 MEQ/L Chloride Level 103 MEQ/L Carbon Dioxide Level 28.3 MEQ/L Anion Gap 9 MEQ/L Blood Urea Nitrogen 32 MG/DL Creatinine 1.42 MG/DL Estimat Glomerular Filtration 49 ML/MIN Rate Random Glucose 168 MG/DL Calcium Level 9.1 MG/DL Magnesium Level 2.5 MG/DL Total Creatine Kinase 391 U/L Creatine Kinase MB 16.2 NG/ML Creatine Kinase MB % 4.1 % Troponin I 0.12 NG/ML B-Type Natriuretic Peptide 263 PG/ML Lactic Acid Level 1.7 mmol/L Blood Gas Puncture Site RT RADIAL Blood Gas Patient Temperature 98.6 Blood Gas HCO3 24 mmol/L Blood Gas Base Excess -1.9 mmol/L Blood Gas Oxygen Saturation 98 % Arterial Blood pH 7.30 Arterial Blood Partial 50 mmHg Pressure CO2 Arterial Blood Partial 579 mmHG Pressure O2 Arterial Blood Oxygen Content 17.8 Vol % Arterial Blood 0.3 % Carboxyhemoglobin Arterial Blood Methemoglobin 1.0 % Blood Gas Hemoglobin 11.7 G/DL Oxygen Delivery Device VENTILATOR Blood Gas Ventilator Setting AC/16/500/+5PEEP Blood Gas Inspired Oxygen 100 % MDM Medical Decision Making Medical Screen Exam Complete: Yes Emergency Medical Condition: Yes Medical Record Reviewed: Yes Differential Diagnosis Sepsis, COPD, PNA, arrhythmia, hypoxia Narrative Course CBC & BMP Diagram 12/17/16 18:00 Tn 0.12 LA 1.7 Last 24 hours Impressions Chest X-Ray 12/17/16 1753 Signed Impressions: Service Date/Time: Saturday, December 17, 2016 17:54 - CONCLUSION: Satisfactory ET tube positioning. Ealr Zapata MD EKG: sinus, rate 125, no stemi Intubated. Abx started. Cultures drawn. 1L NS given. d/w Dr Bill. Procedures Procedure Narrative Pt unable to have meaningful informed consent 2/2 severe respiratory distress, impending respiratory failure and appropriate anxiety. INTUBATION: The patient was put in optimal position for the procedure. Rapid sequence intubation was initiated by me using 20 milligrams of etomidate IV and 50 milligrams of rocuronium IV. The patient was intubated with a 8-0 cuffed endotracheal tube. Tube placement was confirmed by visualization of the tube and balloon passing through the cords, capnometry and subsequent chest x-ray. Breath sounds were equal and well aerated bilaterally postintubation. No breath sounds over stomach. Patient tolerated procedure well. Diagnosis Primary Impression: COPD (chronic obstructive pulmonary disease) Qualified Code: J44.9 - Chronic obstructive pulmonary disease, unspecified COPD type Additional Impression: PNA (pneumonia) Qualified Code: J18.9 - Pneumonia due to infectious organism, unspecified laterality, unspecified part of lung Admitting Information Admitting Physician Requests: Admit Layo Moore MD December 17, 2016 18:34
[2016-12-17 18:42] LABS: AUTOMATED NEUTROPHIL # 17.3 TH/MM3 (1.8-7.7); BASOPHIL # 0.1 TH/MM3 (0-0.2); BASOPHIL % 0.3 % (0.0-2.0); EOSINOPHIL # 0.1 TH/MM3 (0-0.4); EOSINOPHIL % 0.6 % (0.0-4.0); HEMATOCRIT 37.2 % (39.0-51.0); LYMPH % 5.9 % (9.0-44.0); LYMPHOCYTE # 1.3 TH/MM3 (1.0-4.8); MEAN CELL VOLUME 88.2 FL (80.0-100.0); MEAN CORPUSCULAR HEMOGLOBIN 28.5 PG (27.0-34.0); MEAN CORPUSCULAR HGB CONC 32.3 % (32.0-36.0); MONO % 11.6 % (0.0-8.0); NEUT % 81.6 % (16.0-70.0); PLATELET COUNT 379 TH/MM3 (150-450); RED BLOOD COUNT 4.23 MIL/MM3 (4.50-5.90); WHITE BLOOD COUNT 21.2 TH/MM3 (4.0-11.0)
[2016-12-17 18:49] LABS: APTT (PATIENT) 27.8 SEC (24.3-30.1); INTERNATIONAL NORMALIZED RATIO 1.2 RATIO
[2016-12-17 18:55] LABS: HEMO FLAGS AUTO DIFF
[2016-12-17] MEDS ORDERED: ETOMIDATE 20 MG/10 ML VIAL IV PUSH ONE (19:00)
[2016-12-17] MEDS ORDERED: ROCURONIUM INJ 50 MG/5 ML VIAL IV ONE (19:00)
[2016-12-17 19:03] LABS: BLOOD GAS BASE EXCESS -1.9 mmol/L (-2-2); BLOOD GAS CARBOXYHEMOGLOBIN 0.3 % (0-4); BLOOD GAS HCO3 24 mmol/L (22-26); BLOOD GAS O2 HGB SATURATION 98 % (90-100); BLOOD GAS OXYGEN CONTENT 17.8 Vol % (12.0-20.0); BLOOD GAS PCO2 50 mmHg (38-42); BLOOD GAS PO2 579 mmHG (61-120); BLOOD GAS TOTAL HGB 11.7 G/DL (12.0-16.0); CRITICAL VALUE NO; DRAW SITE RT RADIAL; FIO2 100 %; NUMBER OF ARTERIAL PUNCTURES 1; OXYGEN DEVICE VENTILATOR; STAT YES; TEMP CORR TO 98.6; ULNAR PULSE PRESENT; VENT SETTINGS AC/16/500/+5PEEP
[2016-12-17 19:08] LABS: BICARBONATE 28.3 MEQ/L (21.0-32.0); MAGNESIUM 2.5 MG/DL (1.5-2.5); POTASSIUM 4.5 MEQ/L (3.5-5.1)
[2016-12-17 19:27] LABS: BANDS 3 % (0-6); MYELOCYTES 1 % (0-0); NEUTROPHIL # MANUAL DIFF 18.2 TH/MM3 (1.8-7.7); POLYS (SEG NEUTROPHILS) 82 % (16-70); WBC DIFF SAMPLE 100
[2016-12-17 19:28] LABS: KERATOCYTES OCC (NORMAL); OVALOCYTES 1+ (NORMAL); PLATELET ESTIMATE SMEAR NORMAL (NORMAL); PLATELET MORPHOLOGY NORMAL (NORMAL); SCAN/DIFF FINAL DIFF MANUAL
[2016-12-17 19:29] LABS: CKMB 16.2 NG/ML (0.5-3.6)
[2016-12-17] MEDS ORDERED: SODIUM CHLOR 0.9% 1000 ML INJ 1,000 ML IV ONE (19:30)
--- NOTE | 2016-12-17 19:42 | HHI.HP ---
HPI Service Critical Care Medicine Primary Care Physician Khari Wellington MD Admission Diagnosis Resp Failure, COPD Diagnosis: Travel History International Travel<30 Days: No Contact w/Intl Traveler <30 Da: No Traveled to Known Affected Are: No History of Present Illness 71-year-old male with COPD, coronary artery disease, atrial fibrillation, he was discharged recently following admission for pneumonia returns tonight by EMS in severe respiratory distress. In the urgency department he repeatedly complain on shortness of breath, his O2 sat was in the low 80s, patient was tachypneic to about 40 breaths minute and he was intubated shortly following arrival by ED attending. Review of Systems ROS Unable to obtain patient is sedated and intubated Past Family Social History Allergies: Coded Allergies: Codeine (Verified Allergy, Intermediate, 12/17/16) Past Medical History Coronary artery disease with stent placement in 2013 CVA with no residual deficits COPD/ asthma GERD Atrial fibrillation s/p ablation Past Surgical History Cardiac ablation x2 Right inguinal hernia repair Cataract surgery bilaterally Appendectomy Tonsils and adenoids Fatty tumor removed Reported Medications Reported Meds & Active Scripts Active Azithromycin 250 Mg Tab 250 Mg PO DAILY Prednisone (48) 10 mg tab Dose Pack (Prednisone) 10 Mg Dspk 10 Mg PO DIRECTED Duoneb (Ipratropium-Albuterol Neb) 0.5-2.5 Mg/3 Ml Neb 1 Ampule NEB Q6HR 30 Days Reported Centrum Silver (Multiple Vitamins W/ Minerals) 1 Tab 1 Tab PO DAILY Advair Diskus Inh (Fluticasone-Salmeterol Inh) 500-50 Mcg/Blist Aer 1 Puff INH BID Rinse mouth after use. Xarelto (Rivaroxaban) 20 Mg Tab 20 Mg PO DAILY Tizanidine (Tizanidine HCl) 4 Mg Cap 4 Mg PO TID Sertraline (Sertraline HCl) 50 Mg Tab 50 Mg PO DAILY Pantoprazole (Pantoprazole Sodium) 40 Mg Tab 40 Mg PO DAILY Folic Acid 5 Mg Cap 1 Mg PO DAILY Atorvastatin (Atorvastatin Calcium) 20 Mg Tab 20 Mg PO HS Aspirin 81 Mg Tabdr 81 Mg PO DAILY Amiodarone (Amiodarone HCl) 200 Mg Tab 200 Mg PO DAILY Active Ordered Medications Current Medications Medications (Trade) Dose Ordered Sig/Vidal Route PRN Reason Start Time Stop Time Status Last Admin Dose Admin Sodium Chloride (NS Flush) 2 ml UNSCH PRN IVF FLUSH AFTER USING IV ACCESS 12/17/16 18:00 Amiodarone HCl (Cordarone) 200 mg DAILY PO 12/18/16 09:00 Aspirin (Ecotrin Ec) 81 mg DAILY PO 12/18/16 09:00 Atorvastatin Calcium (Lipitor) 20 mg HS PO 12/17/16 21:00 Folic Acid (Folate) 1 mg DAILY PO 12/18/16 09:00 Pantoprazole Sodium (Protonix) 40 mg DAILY PO 12/18/16 09:00 Rivaroxaban (Xarelto) 20 mg DAILY PO 12/18/16 09:00 Sertraline HCl (Zoloft) 50 mg DAILY PO 12/18/16 09:00 Multivitamins/ Minerals Therapeutic 1 tab 1 tab DAILY PO 12/18/16 09:00 Sodium Chloride (NS 1000 ml Inj) 1,000 ml @ 84 mls/hr [id number] IV 12/17/16 20:00 Sodium Chloride (NS Flush) 2 ml UNSCH PRN .XX FLUSH AFTER USING IV ACCESS 12/17/16 19:45 Sodium Chloride (NS Flush) 2 ml BID .XX 12/17/16 21:00 Acetaminophen (Tylenol) 650 mg Q6H PRN PO PAIN 1-10 AND/OR FEVER >101F 12/17/16 19:45 Morphine Sulfate (Morphine Inj) 2 mg Q2H PRN IV PAIN SCALE 6 TO 10 12/17/16 19:45 Lorazepam (Ativan Inj) 1 mg Q1H PRN IV Agitation/Sedation 12/17/16 19:45 12/17/16 20:09 Artificial Tears (Tears Naturale Opth Soln) 1 drop TID EACH EYE 12/18/16 09:00 Ondansetron HCl (Zofran Inj) 4 mg Q6H PRN IV NAUSEA OR VOMITING 12/17/16 19:45 Metoclopramide HCl (Reglan Inj) 10 mg Q6H PRN IV NAUSEA OR VOMITING 12/17/16 19:45 Docusate Sodium (Colace Liq) 100 mg Q12H G-TUBE 12/17/16 21:00 Miscellaneous Information 1 [id number] XX 12/17/16 19:45 Chlorhexidine Gluconate (Chlorhexidine 2% Cloth) 3 pack Taper DAILY@04 TOP 12/18/16 04:00 12/14/17 03:59 Chlorhexidine Gluconate 3 pack 3 pack UNSCH PRN TOP HYGIENIC CARE 12/17/16 19:45 Propofol 100 ml @ 0 mls/hr TITRATE IV 12/17/16 20:00 Midazolam HCl 100 ml @ 0 mls/hr TITRATE IV 12/17/16 19:45 12/17/16 20:04 Piperacillin Sod/ Tazobactam Sod 100 ml @ 200 mls/hr Q6H IV 12/17/16 22:00 Azithromycin/ Sodium Chloride (Zithromax Inj/ NS 250 ml Inj) 250 ml @ 250 mls/hr Q24H IV 12/17/16 21:00 Protein (Beneprotein Powder) 2 pack TID G-TUBE 12/18/16 09:00 Family History Noncontributory Social History Quit smoking in 1995 Drinks socially Physical Exam Vital Signs Vital Signs Date Time Temp Pulse Resp B/P Pulse Ox O2 Delivery O2 Flow Rate FiO2 12/17/16 19:18 99 50 12/17/16 19:02 50 12/17/16 19:02 100 16 160/107 100 Ventilator 50 12/17/16 18:15 116 16 175/115 100 Ventilator 2 100 12/17/16 18:06 98.3 112 38 210/131 99 12/17/16 18:00 99 Aerosol Mask 12/17/16 18:00 112 38 99 Aerosol Mask 12/17/16 18:00 38 99 Aerosol Mask 12/17/16 17:55 100 12/17/16 17:54 100 100 Physical Exam GENERAL: Sedated and intubated elderly man SKIN: Warm and dry. HEAD: Normocephalic. EYES: No scleral icterus. No injection or drainage. NECK: Supple, trachea midline. No JVD or lymphadenopathy. CARDIOVASCULAR: Regular rate and rhythm without murmurs, gallops, or rubs. RESPIRATORY: Breath sounds equal bilaterally. No accessory muscle use. GASTROINTESTINAL: Abdomen soft, non-tender, nondistended. MUSCULOSKELETAL: No cyanosis, or edema. BACK: Nontender without obvious deformity. No CVA tenderness. EXTREMITIES: No clubbing cyanosis or edema Laboratory Laboratory Tests Test 12/17/16 12/17/16 12/17/16 18:00 18:09 18:54 White Blood Count 21.2 Red Blood Count 4.23 Hemoglobin 12.0 Hematocrit 37.2 Mean Corpuscular Volume 88.2 Mean Corpuscular Hemoglobin 28.5 Mean Corpuscular Hemoglobin 32.3 Concent Red Cell Distribution Width 18.0 Platelet Count 379 Mean Platelet Volume 9.3 Neutrophils (%) (Auto) 81.6 Lymphocytes (%) (Auto) 5.9 Monocytes (%) (Auto) 11.6 Eosinophils (%) (Auto) 0.6 Basophils (%) (Auto) 0.3 Neutrophils # (Auto) 17.3 Lymphocytes # (Auto) 1.3 Monocytes # (Auto) 2.4 Eosinophils # (Auto) 0.1 Basophils # (Auto) 0.1 CBC Comment AUTO DIFF Differential Total Cells 100 Counted Neutrophils % (Manual) 82 Band Neutrophils % 3 Lymphocytes % 8 Monocytes % 6 Neutrophils # (Manual) 18.2 Myelocytes 1 Differential Comment FINAL DIFF MANUAL Platelet Estimate NORMAL Platelet Morphology Comment NORMAL Ovalocytes 1+ Keratocytes OCC Prothrombin Time 13.0 Prothromb Time International 1.2 Ratio Activated Partial 27.8 Thromboplast Time Sodium Level 140 Potassium Level 4.5 Chloride Level 103 Carbon Dioxide Level 28.3 Anion Gap 9 Blood Urea Nitrogen 32 Creatinine 1.42 Estimat Glomerular Filtration 49 Rate Random Glucose 168 Calcium Level 9.1 Magnesium Level 2.5 Total Creatine Kinase 391 Troponin I 0.12 Lactic Acid Level 1.7 Blood Gas Puncture Site RT RADIAL Blood Gas Patient Temperature 98.6 Blood Gas HCO3 24 Blood Gas Base Excess -1.9 Blood Gas Oxygen Saturation 98 Arterial Blood pH 7.30 Arterial Blood Partial 50 Pressure CO2 Arterial Blood Partial 579 Pressure O2 Arterial Blood Oxygen Content 17.8 Arterial Blood 0.3 Carboxyhemoglobin Arterial Blood Methemoglobin 1.0 Blood Gas Hemoglobin 11.7 Oxygen Delivery Device VENTILATOR Blood Gas Ventilator Setting AC/16/500/+5PEEP Blood Gas Inspired Oxygen 100 Date/Time Procedure Status Source Growth 12/17/16 18:10 Aerobic Blood Culture Received Blood Peripheral Pending 12/17/16 18:10 Anaerobic Blood Culture Received Blood Peripheral Pending Result Diagram: 12/17/16 1800 12/17/16 1800 Imaging Last 24 hours Impressions Chest X-Ray 12/17/16 1948 Signed Impressions: Service Date/Time: Saturday, December 17, 2016 17:54 - CONCLUSION: Satisfactory ET tube positioning. Earl Zapata MD Assessment and Plan Problem List: (1) COPD exacerbation ICD Code: J44.1 Status: Acute (2) PNA (pneumonia) ICD Code: J18.9 Status: Acute (3) A-fib ICD Code: I48.91 Status: Chronic Assessment and Plan Respiratory failure - COPD exacerbation - Possible ongoing pneumonia - Mechanical ventilation - Broad-spectrum antibiotic - IV steroids - DuoNeb scheduled and when necessary Coronary artery disease - stent placement in 2013 - Monitor series of EKGs and troponin GERD - Omeprazole Atrial fibrillation - s/p ablation - Amiodarone - Xarelto DVT GI prophylaxis - Omeprazole, teds, SCDs, Xarelto Critical Care: The total critical care time was 35 minutes. Time to perform other separately billable procedures was not included in the critical care time. Problem Qualifiers (1) PNA (pneumonia): Qualified Code: J18.9 - Pneumonia due to infectious organism, unspecified laterality, unspecified part of lung Jayce Bill MD December 17, 2016 19:42
[2016-12-17] MEDS ORDERED: ACETAMINOPHEN 325 MG TAB PO PRN (19:45)
[2016-12-17] MEDS ORDERED: MORPHINE SULFATE 4 MG/ML INJ IV PRN (19:45)
[2016-12-17] MEDS ORDERED: MIDAZOLAM 100 MG/ML INJ 100 ML IV SCH (19:45)
[2016-12-17] MEDS ORDERED: CHLORHEXIDINE GLUCONATE 2 % 1 PACK (2 CLOTHS) TOP PRN (19:45)
[2016-12-17] MEDS ORDERED: SODIUM CHLORIDE 0.9% FLUSH 10 ML FLUSH PRN (19:45)
[2016-12-17] MEDS ORDERED: METOCLOPRAMIDE HCL 10 MG/2 ML VIAL IV PRN (19:45)
[2016-12-17] MEDS ORDERED: ONDANSETRON HCL 4 MG/2 ML VIAL IV PRN (19:45)
[2016-12-17] MEDS ORDERED: MISCELLANEOUS NURSING INFORMATION XX SCH (19:45)
[2016-12-17] MEDS ORDERED: MIDAZOLAM 100 MG/ML INJ 100 ML ONE (19:52)
[2016-12-17] MEDS: LORazepam 2 MG/ML VIAL IV PRN (20:09)
[2016-12-17] MEDS: RESP: ALBUTEROL 2.5 MG/IPRATROPIUM 0.5 MG NEB (SCH) NEB (20:18)
[2016-12-17] MEDS: SODIUM CHLORIDE 0.9% FLUSH 10 ML FLUSH SCH (21:00)
[2016-12-17] MEDS: AZITHROMYCIN INJ 500 MG in SODIUM CHLOR 0.9% 250 ML INJ 250 ML IV SCH (21:15)
[2016-12-17] MEDS: SODIUM CHLOR 0.9% 1000 ML INJ 1,000 ML IV SCH (21:15)
[2016-12-17] MEDS: methylPREDNISolone SOD SUCC 40 MG/1 ML VIAL IV PUSH SCH (21:17)
[2016-12-17] MEDS: PROPOFOL 1000 MG/100 ML INJ 100 ML IV SCH (21:18)
[2016-12-17] MEDS: ATORVASTATIN 20 MG TAB PO SCH (21:33)
[2016-12-17] MEDS: DOCUSATE SODIUM 100 MG/10 ML UDC G-TUBE SCH (21:33)
[2016-12-17] MEDS: PIPERACIL-TAZO 4.5 GM PREMIX 100 ML IV SCH (22:31)
--- NOTE | 2016-12-17 22:37 | EKG ---
Date Performed: 12/17/2016 Time Performed: 17:51:57 PTAGE: 71 years EKG: SINUS TACHYCARDIA LEFT AXIS DEVIATION NONSPECIFIC T-WAVE ABNORMALITY ABNORMAL ECG NO PREVIOUS TRACING DOCTOR: Pacheco Welch Interpretating Date/Time 12/17/2016 22:36:12
[2016-12-18] VITALS (19 sets, daily range): BP systolic 93–146; BP diastolic 60–84; PULSE 48–68; RESP 16–18; TEMP 97.8–98.2; O2SAT 97–100
[2016-12-18 02:33] LABS: HEMO FLAGS DIFF FINAL; LYMPH % 1.6 % (9.0-44.0); LYMPHOCYTE # 0.2 TH/MM3 (1.0-4.8); MEAN CELL VOLUME 86.8 FL (80.0-100.0); MEAN CORPUSCULAR HEMOGLOBIN 29.1 PG (27.0-34.0); MEAN CORPUSCULAR HGB CONC 33.6 % (32.0-36.0); MONO % 3.2 % (0.0-8.0); NEUT % 95.2 % (16.0-70.0); PLATELET COUNT 178 TH/MM3 (150-450); RED CELL DISTRIBUTION WIDTH 17.8 % (11.6-17.2); WHITE BLOOD COUNT 12.6 TH/MM3 (4.0-11.0)
[2016-12-18 03:00] LABS: ALT (GPT) 54 U/L (12-78); ANION GAP 8 MEQ/L (5-15); AST (GOT) 39 U/L (15-37); BICARBONATE 25.1 MEQ/L (21.0-32.0); BLOOD UREA NITROGEN 30 MG/DL (7-18); CHLORIDE 108 MEQ/L (98-107); GLOMERULAR FILTRATION RATE 56 ML/MIN (>89); MAGNESIUM 2.2 MG/DL (1.5-2.5); POTASSIUM 4.2 MEQ/L (3.5-5.1); SODIUM (NA) 141 MEQ/L (136-145)
[2016-12-18 03:01] LABS: ALKALINE PHOSPHATASE 71 U/L (45-117); TOTAL BILIRUBIN ADULT 0.4 MG/DL (0.2-1.0)
[2016-12-18] MEDS: RESP: ALBUTEROL 2.5 MG/IPRATROPIUM 0.5 MG NEB (SCH) NEB ×4 (03:38→21:04)
[2016-12-18] MEDS: CHLORHEXIDINE GLUCONATE 2 % 1 PACK (2 CLOTHS) TOP SCH (04:00)
[2016-12-18] MEDS: PIPERACIL-TAZO 4.5 GM PREMIX 100 ML IV SCH ×4 (04:30→20:55)
[2016-12-18] MEDS: methylPREDNISolone SOD SUCC 40 MG/1 ML VIAL IV PUSH SCH ×3 (05:14→20:55)
[2016-12-18] MEDS: SODIUM CHLOR 0.9% 1000 ML INJ 1,000 ML IV SCH ×2 (07:55→13:52)
[2016-12-18] MEDS: AMIODARONE 200 MG TAB PO SCH (09:00)
[2016-12-18] MEDS: RIVAROXABAN 20 MG TAB PO SCH (09:00)
[2016-12-18] MEDS: SODIUM CHLORIDE 0.9% FLUSH 10 ML FLUSH SCH ×2 (09:00→20:56)
[2016-12-18] MEDS: BENEPROTEIN POWDER 1 PACK G-TUBE SCH ×3 (09:00→18:00)
[2016-12-18] MEDS: ARTIFICIAL TEARS OPTH SOLN 15 ML BTL EACH EYE SCH ×3 (09:00→18:00)
[2016-12-18] MEDS: ASPIRIN EC 81 MG TABEC PO SCH (09:45)
[2016-12-18] MEDS: DOCUSATE SODIUM 100 MG/10 ML UDC G-TUBE SCH ×2 (09:45→20:55)
[2016-12-18] MEDS: SERTRALINE HCL 50 MG TAB PO SCH (09:45)
[2016-12-18] MEDS: MULTIVITAMINS/MINERALS THERAPEUTIC TAB PO SCH (09:45)
[2016-12-18] MEDS: PANTOPRAZOLE SOD 40 MG DELAYED RELEASE TAB PO SCH (09:45)
[2016-12-18] MEDS: FOLIC ACID 1 MG TAB PO SCH (09:45)
--- NOTE | 2016-12-18 10:58 | HHI.CCPN ---
Subjective Remarks/Hospital Course Patient is a 71 y/o M with PMHx of coronary artery disease with stent placement in 2013, CVA with no residual deficits, COPD on 2 L oxygen 24 hour a day/ asthma , GERD, and Atrial fibrillation s/p cardiac ablation x2. He was recently discharged on 12/15 after hospitalization for a COPD exacerbation and R middle lobe PNA. He was treated with azithromycin for 5 days and ceftriaxone for 3 days with steroids. He was discharged home after a 3 day hospital stay. He then presented to the ED on 12/17 in respiratory failure and was intubated. 12/18: No acute events overnight. Patient remains intubated and sedated. Step- daughter at bedside, Ninfa Dylan, who confirms patient's home oxygen requirement and constant respiratory issues. She states that he has not completed his DNR paperwork, but that it was his wish to avoid life saving measures. However, she is not his POA as he has children. She states that she will reach out to them today for input on medical decision making going forward. Objective Vital Signs Date Time Temp Pulse Resp B/P Pulse Ox O2 Delivery O2 Flow Rate FiO2 12/18/16 08:00 50 12/18/16 08:00 98.0 60 18 105/66 100 12/17/16 23:15 Ventilator 12/17/16 18:15 2 Intake and Output 12/17/16 12/17/16 12/18/16 08:00 16:00 00:00 Intake Total 1200 ml Output Total 250 ml Balance 950 ml Result Diagram: 12/18/16 0200 12/18/16 0200 Other Results Laboratory Tests Test 12/17/16 18:54 Blood Gas Puncture Site RT RADIAL Blood Gas Patient Temperature 98.6 Blood Gas HCO3 24 mmol/L (22-26) Blood Gas Base Excess -1.9 mmol/L (-2-2) Blood Gas Oxygen Saturation 98 % (90-100) Arterial Blood pH 7.30 (7.380-7.420) Arterial Blood Partial 50 mmHg (38-42) Pressure CO2 Arterial Blood Partial 579 mmHG Pressure O2 (61-120) Arterial Blood Oxygen Content 17.8 Vol % (12.0-20.0) Arterial Blood 0.3 % (0-4) Carboxyhemoglobin Arterial Blood Methemoglobin 1.0 % (0-2) Blood Gas Hemoglobin 11.7 G/DL (12.0-16.0) Oxygen Delivery Device VENTILATOR Blood Gas Ventilator Setting AC/16/500/+5PEEP Blood Gas Inspired Oxygen 100 % Imaging Last 24 hours Impressions Chest X-Ray 12/17/16 7353 Signed Impressions: Service Date/Time: Saturday, December 17, 2016 17:54 - CONCLUSION: Satisfactory ET tube positioning. Earl Zapata MD Objective Remarks GENERAL: Sedated and intubated elderly man SKIN: Warm and dry. HEAD: Normocephalic. EYES: No scleral icterus. No injection or drainage. NECK: Supple, trachea midline. No JVD or lymphadenopathy. CARDIOVASCULAR: Regular rate and rhythm without murmurs, gallops, or rubs. RESPIRATORY: Orally intubated on mechanical ventilation, Breath sounds equal bilaterally. No wheezing. Scattered rhonchi. GASTROINTESTINAL: Abdomen soft, non-tender, nondistended with +BS. MUSCULOSKELETAL: No cyanosis, or edema. NEURO: Intubated and sedated. Urinary Catheter: Yes Assessment to: Continue A/P Problem List: (1) COPD exacerbation ICD Code: J44.1 Status: Acute (2) PNA (pneumonia) ICD Code: J18.9 Status: Acute (3) A-fib ICD Code: I48.91 Status: Chronic (4) NSTEMI (non-ST elevated myocardial infarction) ICD Code: I21.4 Status: Acute Assessment and Plan Neuro: - Intubated and Sedated with propofol. Daily sedation vacation - Depression - Neurochecks per [facility] protocol - Continue Zoloft Respiratory: - Acute respiratory failure - COPD exacerbation - Possible ongoing pneumonia - Intubated and sedated - Broad-spectrum antibiotics with Zosyn and Azithromycin (12/17- ) - IV Solumedrol Q8H - DuoNeb scheduled and when necessary - Legionella and Streptococcal urinary antigens pending - x2: pending; prior cultures all negative Cardiac: - Coronary artery disease - Stent placement in 2013 - Atrial fibrillation ablation x2 - Troponin 0.12, 1.19, 1.92 with CKMB up to 4.7. - EKG: Sinus tachycardia with L axis deviation. - Continue Amiodarone, Atorvastatin, and Xarelto, ASA, statin - Cardiology consulted GI: - GERD - Omeprazole - Tube feeds per protocol Renal: - KADI on admission - KADI resolved with fluid resuscitation - Monitor I/Os, cortes placed Endocrine: - Tube feeds per protocol - SSI for glycemic control as needed. - Monitor BG per [facility] protocol Heme/ID: - Leukocytosis with left shift s/p steroids - Broad-spectrum antibiotics with Zosyn and Azithromycin (12/17- ) - Continue to monitor CBC, transfuse if necessary DVT - On Xarelto, MO/SCDs GI prophylaxis - Omeprazole Palliative Care consulted to assist with goals of care Addendum: Addendum: Patient seen and examined earlier. Discussed findings, assessment and plan with Dr. Olivier. Agree with above note. Discussed with patient's [id number] at bedside. Patient has been on home oxygen for about a year and has not been doing well. He was recently discharged however required readmission now on mechanical ventilation with a non -ST elevation GA. Daughter tells me that he was in the process of completing taper work including a living will and did not want CPR or aggressive measures including mechanical ventilation long-term. I discussed option of palliative care/hospice and she is open to discussing that further. She did tell me that he has 2 children who are not really involved in his care and she has been the main caregiver. We'll consult palliative care to assist with deciding goals of therapy as his prognosis appears extremely poor. Problem Qualifiers (1) PNA (pneumonia): Qualified Code: J18.9 - Pneumonia due to infectious organism, unspecified laterality, unspecified part of lung Isac Olivier MD R1 December 18, 2016 10:58 Kunal Lobato MD December 18, 2016 11:25
[2016-12-18] MEDS ORDERED: DEXTROSE 50% IN WATER 50 ML VIAL(D50) IV PRN (11:45)
[2016-12-18] MEDS ORDERED: GLUCAGON 1 MG/ML VIAL IM/SQ PRN (11:45)
[2016-12-18] MEDS ORDERED: DOPamine INJ PREMIX 500 ML ONE (11:55)
[2016-12-18] MEDS: INSULIN ASPART SUPPLEMENTAL SCALE SQ SCH ×2 (12:00→18:00)
[2016-12-18] MEDS: PROPOFOL 1000 MG/100 ML INJ 100 ML IV SCH (15:04)
[2016-12-18] MEDS: ATORVASTATIN 20 MG TAB PO SCH (20:55)
[2016-12-18] MEDS: AZITHROMYCIN INJ 500 MG in SODIUM CHLOR 0.9% 250 ML INJ 250 ML IV SCH (20:56)
[2016-12-19] VITALS (35 sets, daily range): BP systolic 82–134; BP diastolic 48–80; PULSE 46–78; RESP 16–19; TEMP 97.8–98.5; O2SAT 97–100
[2016-12-19] MEDS: PROPOFOL 1000 MG/100 ML INJ 100 ML IV SCH ×5 (02:16→20:05)
[2016-12-19] MEDS: CHLORHEXIDINE GLUCONATE 2 % 1 PACK (2 CLOTHS) TOP SCH (03:23)
[2016-12-19] MEDS: PIPERACIL-TAZO 4.5 GM PREMIX 100 ML IV SCH ×4 (03:23→20:07)
[2016-12-19] MEDS: RESP: ALBUTEROL 2.5 MG/IPRATROPIUM 0.5 MG NEB (SCH) NEB ×4 (03:54→19:47)
[2016-12-19 04:19] LABS: AUTOMATED NEUTROPHIL # 10.9 TH/MM3 (1.8-7.7); BASOPHIL % 0.1 % (0.0-2.0); HEMATOCRIT 27.5 % (39.0-51.0); HEMO FLAGS DIFF FINAL; LYMPH % 2.5 % (9.0-44.0); LYMPHOCYTE # 0.3 TH/MM3 (1.0-4.8); MEAN CELL VOLUME 86.1 FL (80.0-100.0); MEAN CORPUSCULAR HEMOGLOBIN 29.2 PG (27.0-34.0); MEAN CORPUSCULAR HGB CONC 33.9 % (32.0-36.0); MONO % 5.7 % (0.0-8.0); NEUT % 91.7 % (16.0-70.0); PLATELET COUNT 170 TH/MM3 (150-450); RED CELL DISTRIBUTION WIDTH 17.8 % (11.6-17.2); WHITE BLOOD COUNT 11.9 TH/MM3 (4.0-11.0)
[2016-12-19 04:42] LABS: ANION GAP 7 MEQ/L (5-15); AST (GOT) 27 U/L (15-37); BLOOD UREA NITROGEN 25 MG/DL (7-18); CHLORIDE 109 MEQ/L (98-107); GLOMERULAR FILTRATION RATE 66 ML/MIN (>89); SODIUM (NA) 143 MEQ/L (136-145)
[2016-12-19 04:46] LABS: ALKALINE PHOSPHATASE 66 U/L (45-117); ALT (GPT) 51 U/L (12-78); TOTAL BILIRUBIN ADULT 0.3 MG/DL (0.2-1.0)
[2016-12-19] MEDS: INSULIN ASPART SUPPLEMENTAL SCALE SQ SCH ×5 (06:00→23:44)
[2016-12-19] MEDS: methylPREDNISolone SOD SUCC 40 MG/1 ML VIAL IV PUSH SCH ×3 (06:09→20:05)
[2016-12-19] MEDS: SODIUM CHLOR 0.9% 1000 ML INJ 1,000 ML IV SCH ×2 (07:45→19:40)
[2016-12-19] MEDS: SODIUM CHLORIDE 0.9% FLUSH 10 ML FLUSH SCH ×2 (08:48→20:04)
[2016-12-19] MEDS: FOLIC ACID 1 MG TAB PO SCH ×2 (08:49→21:27)
[2016-12-19] MEDS: BENEPROTEIN POWDER 1 PACK G-TUBE SCH ×3 (08:49→17:01)
[2016-12-19] MEDS: SERTRALINE HCL 50 MG TAB PO SCH (08:49)
[2016-12-19] MEDS: RIVAROXABAN 20 MG TAB PO SCH (08:49)
[2016-12-19] MEDS: DOCUSATE SODIUM 100 MG/10 ML UDC G-TUBE SCH ×2 (08:49→20:03)
[2016-12-19] MEDS: ARTIFICIAL TEARS OPTH SOLN 15 ML BTL EACH EYE SCH ×3 (08:49→17:01)
[2016-12-19] MEDS: ASPIRIN EC 81 MG TABEC PO SCH (08:49)
[2016-12-19] MEDS: PANTOPRAZOLE SOD 40 MG DELAYED RELEASE TAB PO SCH (08:49)
[2016-12-19] MEDS: AMIODARONE 200 MG TAB PO SCH (08:50)
[2016-12-19] MEDS: MULTIVITAMINS/MINERALS THERAPEUTIC TAB PO SCH ×2 (09:00→21:27)
[2016-12-19] MEDS ORDERED: PNEUMOCOCCAL POLYVALENT INJ 25 MCG/0.5 ML SYR IM ONE (10:00)
[2016-12-19] MEDS: fentaNYL DRIP 250 ML IV SCH ×2 (10:11→20:05)
[2016-12-19] MEDS ORDERED: LINEZOLID 600 MG PREMIX 300 ML IV SCH (10:45)
--- NOTE | 2016-12-19 10:46 | PD.CONS ---
Consult Service Palliative Care . Consult Requested By Guillaume Lobato MD . Primary Care Physician Khari Wellington MD . Reason for Consultation a. To assist with evaluation and management of symptoms including: dyspnea; agitation; pain b. To assist medical decision maker(s) with: better understanding of current medical conditions; weighing benefits/burdens of medical treatment options; making medical treatment decisions. . HPI History of Present Illness Mr. Bunch is a 71-year-old male with a known history of COPD; coronary artery disease; atrial fibrillation status post cardiac ablation 2; stroke; who was brought to the emergency department on 12/17/2016 by EMS in severe respiratory distress. The patient had recently been hospitalized at [facility] from 12/13/16 through 12/16/16 due to pneumonia/COPD exacerbation. The patient did not require intubation or mechanical ventilation during that admission. He appeared to respond to systemic antibiotics, nebulizer treatments , steroids, and incentive spirometry. In the emergency department for this admission, the patient appeared in severe respiratory distress. He frequently stated, "I can't breathe," and continued to repeat, "help me." In spite of 4 nebulizer treatments en route to the emergency department and a bolus of high-dose intravenous steroids, the patient remained in respiratory distress and was intubated not long after emergency department arrival. Initial vital signs in the emergency department were as follows: Temperature 98.3; pulse 112; respiratory rate 38; blood pressure 210/131; pulse oximetry 99 % on an aerosol mask Physical examination by the emergency department provider noted the following: Severe respiratory distress. Patient was diaphoretic. Patient was tachycardic but rhythm was regular. Wheezing was noted in all lung boland. Physical exam was otherwise unremarkable. Initial diagnostic testing included the following: * CBC showed WBC 21.2; hemoglobin 12.0; platelet count 379; MCV 88.2 * Coagulation profile showed PT 13.0; PTT 27.8; INR 1.2 * Chemistry panel showed sodium 140; potassium 4.5; chloride 103; CO2 28.3; anion gap 9; BUN 32; creatinine 1.42; GFR 49; glucose 168; calcium 9.1; magnesium 2.5; lactic acid 1.7 * Liver function tests were unremarkable except for a low albumin level of 2.7 * Cardiac serology showed total CK 391; troponin 0.12; B natriuretic peptide was 263 * ABGs on the ventilator with 100% FiO2 showed pH 7.30; PCO2 50; PO2 579; bicarbonate 24; base excess -1.9. * EKG showed a sinus rhythm with a rate of 125. No significant ST-T wave changes. * Post intubation chest x-ray was read by the radiologist. There was mild perihilar interstitial prominence. No evidence of alveolar consolidation or pleural effusion. The ET tube was in good position above the linda. Critical care was consulted and the patient was admitted to the medical intensive care unit. Since admission, white blood cell count has come down to 11.9. Hemoglobin has declined to 9.3 area Troponin has elevated to 1.92 and CK-MB percent when up to 4.7. Albumin level is down to 2.5. Blood cultures are growing out gram-positive cocci At the time of my visit, patient remains intubated and mechanically ventilated and sedated in the medical intensive care unit. He opens eyes and tracks me to loud voice and examination. He only intermittently follows a simple command. He is in no apparent distress. . Function/Cognitive Trajectory Family reports that the patient had been on home oxygen for approximately one year and had not been doing well. He used to be able to go to the store and walk around the store without assistance. Over the last several months he was able to walk from her car to store but then needed to use an electric scooter to get around. [facility] sends someone in approximately once a week to do mild housekeeping. They have also arranged for deliveries of frozen food so the patient only has to microwave his own meals. The patient lives on the second floor of his apartment and there is no elevator. He has difficulty navigating the stairs and once he gets to his apartment he must sit down and uses oxygen. The patient has a worsening bilateral upper extremity tremor. He is now unable to sign any documents on his own and is having trouble, because of the tremor, drinking soup. . Review of Systems ROS Limitations: Clinical Condition (patient is intubated, mechanically ventilated, sedated, and therefore nonverbal in the medical intensive care unit. As patient is unable to provide his own review of systems, the information was taken from [facility] and from the medical record.) Constitutional: COMPLAINS OF: Diaphoretic episodes, Fatigue, Pain, DENIES: Weight gain, Weight loss Endocrine: DENIES: Polydipsia, Polyuria, Polyphagia Eyes: COMPLAINS OF: Vision loss (mild vision loss), DENIES: Blurred vision, Diplopia, Eye pain Ears, nose, mouth, throat: COMPLAINS OF: Hearing loss (significant hearing loss ), DENIES: Throat pain, Hoarseness, Running Nose, Epistaxis Respiratory: COMPLAINS OF: Wheezing, Sputum production, Shortness of breath, DENIES: Apneas, Snoring, Hemoptysis Cardiovascular: COMPLAINS OF: Palpitations, Dyspnea on Exertion, DENIES: Chest pain, Syncope, Lower Extremity Edema, Claudication Gastrointestinal: COMPLAINS OF: Dyspepsia or heartburn, DENIES: Abdominal pain , Black stools, Bloody stools, Nausea, Vomiting Genitourinary: COMPLAINS OF: Urinary frequency (reported urinary frequency 2-3 times per night for approximately one year), Nocturia, DENIES: Dysuria Musculoskeletal: COMPLAINS OF: Back pain, DENIES: Neck pain Hematologic/Lymphatics: COMPLAINS OF: Bruising Neurologic: COMPLAINS OF: Paresthesias, Tremor (bilateral upper extremity tremor present for approximately 2-3 years.), DENIES: Headache, Seizures Psychiatric: COMPLAINS OF: Anxiety, Depression Past Family Social History Coded Allergies: Codeine (Verified Allergy, Intermediate, 12/17/16) Past Medical History Coronary artery disease with stent placement in 2014 CVA with no residual deficits COPD/ asthma GERD Atrial fibrillation s/p ablation Bilateral upper extremity tremor present for 2-3 years Depression Enlarged prostate Past Surgical History Past Surgical History Cardiac ablation x2 Right inguinal hernia repair Cataract surgery bilaterally Appendectomy Tonsils and adenoids Fatty tumor removed from back. . Reported Medications Prehospital medications at home included the following: Azithromycin 250 Mg Tab 250 Mg PO DAILY Prednisone (48) 10 mg tab Dose Pack (Prednisone) 10 Mg Dspk 10 Mg PO DIRECTED Duoneb (Ipratropium-Albuterol Neb) 0.5-2.5 Mg/3 Ml Neb 1 Ampule NEB Q6HR 30 Days Centrum Silver (Multiple Vitamins W/ Minerals) 1 Tab 1 Tab PO DAILY Advair Diskus Inh (Fluticasone-Salmeterol Inh) 500-50 Mcg/Blist Aer 1 Puff INH BID Xarelto (Rivaroxaban) 20 Mg Tab 20 Mg PO DAILY Tizanidine (Tizanidine HCl) 4 Mg Cap 4 Mg PO TID Sertraline (Sertraline HCl) 50 Mg Tab 50 Mg PO DAILY Pantoprazole (Pantoprazole Sodium) 40 Mg Tab 40 Mg PO DAILY Folic Acid 5 Mg Cap 1 Mg PO DAILY Atorvastatin (Atorvastatin Calcium) 20 Mg Tab 20 Mg PO HS Aspirin 81 Mg Tabdr 81 Mg PO DAILY Amiodarone (Amiodarone HCl) 200 Mg Tab 200 Mg PO DAILY . Current Medications Medications (Trade) Dose Ordered Sig/Vidal Route Start Time Stop Time Status Last Admin (NS Flush) 2 ml UNSCH PRN IVF 12/17/16 18:00 (Cordarone) 200 mg DAILY PO 12/18/16 09:00 12/19/16 08:50 (Ecotrin Ec) 81 mg DAILY PO 12/18/16 09:00 12/19/16 08:49 (Lipitor) 20 mg HS PO 12/17/16 21:00 12/18/16 20:55 (Folate) 1 mg DAILY PO 12/18/16 09:00 12/19/16 08:49 (Protonix) 40 mg DAILY PO 12/18/16 09:00 12/19/16 08:49 (Xarelto) 20 mg DAILY PO 12/18/16 09:00 12/19/16 08:49 (Zoloft) 50 mg DAILY PO 12/18/16 09:00 12/19/16 08:49 Multivitamins/ Minerals Therapeutic 1 tab 1 tab DAILY PO 12/18/16 09:00 12/18/16 09:45 (NS 1000 ml Inj) 1,000 ml @ 84 mls/hr [id number] IV 12/17/16 20:00 12/18/16 13:52 (NS Flush) 2 ml UNSCH PRN .XX 12/17/16 19:45 (NS Flush) 2 ml BID .XX 12/17/16 21:00 12/19/16 08:48 (Tylenol) 650 mg Q6H PRN PO 12/17/16 19:45 (Morphine Inj) 2 mg Q2H PRN IV 12/17/16 19:45 12/17/16 23:07 (Ativan Inj) 1 mg Q1H PRN IV 12/17/16 19:45 12/17/16 20:09 (Tears Naturale Opth Soln) 1 drop TID EACH EYE 12/18/16 09:00 12/18/16 18:00 (Zofran Inj) 4 mg Q6H PRN IV 12/17/16 19:45 (Reglan Inj) 10 mg Q6H PRN IV 12/17/16 19:45 (Colace Liq) 100 mg Q12H G-TUBE 12/17/16 21:00 12/19/16 08:49 Miscellaneous Information 1 Q361D XX 12/17/16 19:45 (Chlorhexidine 2% Cloth) 3 pack Taper DAILY@04 TOP 12/18/16 04:00 12/14/17 03:59 12/19/16 03:23 Chlorhexidine Gluconate 3 pack 3 pack UNSCH PRN TOP 12/17/16 19:45 Propofol 100 ml @ 0 mls/hr TITRATE IV 12/17/16 20:00 12/19/16 09:28 Midazolam HCl 100 ml @ 0 mls/hr TITRATE IV 12/17/16 19:45 12/17/16 20:04 Piperacillin Sod/ Tazobactam Sod 100 ml @ 200 mls/hr Q6H IV 12/17/16 22:00 12/19/16 09:30 (Zithromax Inj/ NS 250 ml Inj) 250 ml @ 250 mls/hr Q24H IV 12/17/16 21:00 12/18/16 20:56 (Beneprotein Powder) 2 pack TID G-TUBE 12/18/16 09:00 12/18/16 18:00 (SoluMEDROL INJ) 40 mg Q8HR IV PUSH 12/17/16 22:00 12/19/16 06:09 (NovoLOG SUPPLEMENTAL SCALE) 1 Q6HR SQ 12/18/16 12:00 (D50w (Vial) Inj) 25 ml UNSCH PRN IV 12/18/16 11:45 Glucagon 1 mg 1 mg UNSCH PRN IM/SQ 12/18/16 11:45 (fentaNYL DRIP) 250 ml @ 0 mls/hr TITRATE IV 12/19/16 09:30 . Family History * Mother from an unknown type of cancer. * A sister at age 66 of end-stage renal disease. . Substance Use Tobacco: Quit smoking in 1995. Alcohol: Normally consumed a few beers on paid day once a month. His stepdaughter, Brianna, says he would only be drinking approximately 6 beers per week. The patient's son, though he has not visited for several years, believes his father, more likely, is consuming one to 2 sixpacks per day.. Prescription med abuse: No known abuse of prescription medications. Illicits: No known use of illicits. . Psychosocial History ` Mr. Bunch is originally from [place], [place]. He has lived in [place] since his late 20s. He has no experience. 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 Mr. Bunch was twice. He had 2 children from the first marriage . Neither child had seen the patient for several years. * Zaina Santana (lives in [place]; [phone]) * Pako Bunch (lives in [place]; [phone]) Patient is a . Patient lives alone but has a [id number] who live nearby. [id number] has served as the primary caregiver. \\ The patient has one brother and one sister who are currently alive. . Spiritual/Cultural Factors Sikh affiliation noted on chart. Step-daughter indicates the patient is "ordained" himself. Muslim and spirituality are important to the patient. He would like unhairer visits. . . Living Will: Never completed Health Care Surrogate: Never completed Durable Power of Plant Operations Engineer: Never completed Date completed: Advance directives were never completed. . Health Care Surrogate(s): No written designation of health care surrogate. . Documented care wishes: No written documentation of health care goals/preferences. . Today's verbally stated goals: Patient is unable to verbally stay healthcare preferences and goals at this time. . Family/friends goals: His legal decision makers will be his son and daughter. They will not be stating goals and preferences until at least one of them comes to see him. . Ethical and Legal Issues Patient is incapacitated to make his own health care decisions at this time. There is a reasonable chance he will regain capacity in the future. While he is incapacitated, healthcare decision-making falls to his 2 adult children-- Zaina and Pako. . Physical Exam Vital Signs Date Time Temp Pulse Resp B/P Pulse Ox O2 Delivery O2 Flow Rate FiO2 12/19/16 06:00 60 5/3/17 04:00 66 12/19/16 04:00 50 12/19/16 04:00 97.9 66 16 114/63 99 12/19/16 03:54 99 40 12/19/16 02:00 54 12/19/16 00:06 100 40 12/19/16 00:00 78 12/19/16 00:00 50 12/19/16 00:00 97.8 64 16 132/80 99 12/18/16 22:00 58 12/18/16 22:00 60 12/18/16 20:57 99 40 12/18/16 20:00 50 12/18/16 20:00 62 12/18/16 20:00 98.0 62 16 146/84 100 12/18/16 18:00 59 12/18/16 16:00 54 12/18/16 16:00 50 12/18/16 16:00 98.2 61 18 121/71 100 12/18/16 14:59 100 50 12/18/16 14:00 59 12/18/16 12:00 97.8 50 16 120/71 100 12/18/16 12:00 50 12/18/16 12:00 60 12/18/16 11:01 99 50 . 12/18/16 12/19/16 19:00 07:00 Intake Total 1020 ml 1359 ml Output Total 350 ml 1700 ml Balance 670 ml -341 ml Intake Oral 0 ml IV Total 1020 ml 1087 ml Tube Feeding 152 ml Other 120 ml Output Urine Total 350 ml 1700 ml # Bowel Movements 0 0 . Exam CONSTITUTIONAL/GENERAL: Adequately nourished; intubated; mechanically ventilated ; sedated in a MICU bed. Awakens to loud voice/exam but unable to consistently follow even basic commands or indicate yes/no. TUBES/LINES/DRAINS: Orotracheal tube; orogastric tube; Samaniego catheter; SCDs; soft wrist restraints; peripheral IV SKIN: No jaundice, rashes, or lesions. Ecchymoses on upper extremities. No wounds seen anteriorly. Skin temperature appropriate. Not diaphoretic. HEAD: Atraumatic. Normocephalic. EYES: Pupils equal and round and reactive. Extraocular motions intact. No scleral icterus. No injection or drainage. Fundi not examined. ENT: Grossly hard of hearing. Nose without bleeding or purulent drainage. Difficult to assess oropharynx and throat due to intubations. NECK: Trachea midline. Supple, nontender. No palpable thyroid enlargement or nodularity. CARDIOVASCULAR: Regular rate and rhythm without murmurs, gallops, or rubs. No JVD. Peripheral pulses symmetric. RESPIRATORY/CHEST: Symmetric, unlabored respirations. Diminished breath sounds bilaterally. Breath sounds equal bilaterally. No wheezes, rales, or rhonchi. GASTROINTESTINAL: Abdomen soft, non-tender, nondistended. No hepato-splenomegaly , or palpable masses. No guarding. Bowel sounds present. GENITOURINARY: Without palpable bladder distension. Samaniego catheter in place. MUSCULOSKELETAL: Extremities without clubbing, cyanosis, or edema. No joint tenderness or effusion noted. No calf tenderness. No mottling or clubbing. LYMPHATICS: No palpable cervical or supraclavicular adenopathy. NEUROLOGICAL: Sedated. Awakens briefly to loud voice and exam but quickly drifts off if not stimulated. Unable to consistently follow even a simple command. Unable to indicate yes/no. Withdraws all extremities to noxious stimuli. PSYCHIATRIC: Unable to assess due to sedation. . Diagnostic Tests Laboratory Laboratory Tests Test 12/17/16 12/17/16 12/17/16 12/17/16 18:00 18:09 18:54 20:04 White Blood Count 21.2 TH/MM3 (4.0-11.0) Red Blood Count 4.23 MIL/MM3 (4.50-5.90) Hemoglobin 12.0 GM/DL (13.0-17.0) Hematocrit 37.2 % (39.0-51.0) Mean Corpuscular Volume 88.2 FL (80.0-100.0) Mean Corpuscular Hemoglobin 28.5 PG (27.0-34.0) Mean Corpuscular Hemoglobin 32.3 % Concent (32.0-36.0) Red Cell Distribution Width 18.0 % (11.6-17.2) Platelet Count 379 TH/MM3 (150-450) Mean Platelet Volume 9.3 FL (7.0-11.0) Neutrophils (%) (Auto) 81.6 % (16.0-70.0) Lymphocytes (%) (Auto) 5.9 % (9.0-44.0) Monocytes (%) (Auto) 11.6 % (0.0-8.0) Eosinophils (%) (Auto) 0.6 % (0.0-4.0) Basophils (%) (Auto) 0.3 % (0.0-2.0) Neutrophils # (Auto) 17.3 TH/MM3 (1.8-7.7) Lymphocytes # (Auto) 1.3 TH/MM3 (1.0-4.8) Monocytes # (Auto) 2.4 TH/MM3 (0-0.9) Eosinophils # (Auto) 0.1 TH/MM3 (0-0.4) Basophils # (Auto) 0.1 TH/MM3 (0-0.2) CBC Comment AUTO DIFF Differential Total Cells 100 Counted Neutrophils % (Manual) 82 % (16-70) Band Neutrophils % 3 % (0-6) Lymphocytes % 8 % (9-44) Monocytes % 6 % (0-8) Neutrophils # (Manual) 18.2 TH/MM3 (1.8-7.7) Myelocytes 1 % (0-0) Differential Comment FINAL DIFF MANUAL Platelet Estimate NORMAL (NORMAL) Platelet Morphology Comment NORMAL (NORMAL) Ovalocytes 1+ (NORMAL) Keratocytes OCC (NORMAL) Prothrombin Time 13.0 SEC (9.8-11.6) Prothromb Time International 1.2 RATIO Ratio Activated Partial 27.8 SEC Thromboplast Time (24.3-30.1) Sodium Level 140 MEQ/L (136-145) Potassium Level 4.5 MEQ/L (3.5-5.1) Chloride Level 103 MEQ/L (98-107) Carbon Dioxide Level 28.3 MEQ/L (21.0-32.0) Anion Gap 9 MEQ/L (5-15) Blood Urea Nitrogen 32 MG/DL (7-18) Creatinine 1.42 MG/DL (0.60-1.30) Estimat Glomerular Filtration 49 ML/MIN (>89) Rate Random Glucose 168 MG/DL (74-106) Calcium Level 9.1 MG/DL (8.5-10.1) Magnesium Level 2.5 MG/DL (1.5-2.5) Total Creatine Kinase 391 U/L 322 U/L (39-308) (39-308) Creatine Kinase MB 16.2 NG/ML 15.0 NG/ML (0.5-3.6) (0.5-3.6) Creatine Kinase MB % 4.1 % (0.0-4.0) 4.7 % (0.0-4.0) Troponin I 0.12 NG/ML 1.19 NG/ML (0.02-0.05) (0.02-0.05) B-Type Natriuretic Peptide 263 PG/ML (0-100) Lactic Acid Level 1.7 mmol/L (0.4-2.0) Blood Gas Puncture Site RT RADIAL Blood Gas Patient Temperature 98.6 Blood Gas HCO3 24 mmol/L (22-26) Blood Gas Base Excess -1.9 mmol/L (-2-2) Blood Gas Oxygen Saturation 98 % (90-100) Arterial Blood pH 7.30 (7.380-7.420) Arterial Blood Partial 50 mmHg (38-42) Pressure CO2 Arterial Blood Partial 579 mmHG Pressure O2 (61-120) Arterial Blood Oxygen Content 17.8 Vol % (12.0-20.0) Arterial Blood 0.3 % (0-4) Carboxyhemoglobin Arterial Blood Methemoglobin 1.0 % (0-2) Blood Gas Hemoglobin 11.7 G/DL (12.0-16.0) Oxygen Delivery Device VENTILATOR Blood Gas Ventilator Setting AC/16/500/+5PEEP Blood Gas Inspired Oxygen 100 % Test 12/18/16 12/18/16 12/19/16 00:15 02:00 03:07 Nasal Screen MRSA (PCR) MRSA NOT DETECTED (NOT DETECT) White Blood Count 12.6 TH/MM3 11.9 TH/MM3 (4.0-11.0) (4.0-11.0) Red Blood Count 3.10 MIL/MM3 3.20 MIL/MM3 (4.50-5.90) (4.50-5.90) Hemoglobin 9.0 GM/DL 9.3 GM/DL (13.0-17.0) (13.0-17.0) Hematocrit 27.0 % 27.5 % (39.0-51.0) (39.0-51.0) Mean Corpuscular Volume 86.8 FL 86.1 FL (80.0-100.0) (80.0-100.0) Mean Corpuscular Hemoglobin 29.1 PG 29.2 PG (27.0-34.0) (27.0-34.0) Mean Corpuscular Hemoglobin 33.6 % 33.9 % Concent (32.0-36.0) (32.0-36.0) Red Cell Distribution Width 17.8 % 17.8 % (11.6-17.2) (11.6-17.2) Platelet Count 178 TH/MM3 170 TH/MM3 (150-450) (150-450) Mean Platelet Volume 9.0 FL 9.3 FL (7.0-11.0) (7.0-11.0) Neutrophils (%) (Auto) 95.2 % 91.7 % (16.0-70.0) (16.0-70.0) Lymphocytes (%) (Auto) 1.6 % 2.5 % (9.0-44.0) (9.0-44.0) Monocytes (%) (Auto) 3.2 % (0.0-8.0) 5.7 % (0.0-8.0) Eosinophils (%) (Auto) 0.0 % (0.0-4.0) 0.0 % (0.0-4.0) Basophils (%) (Auto) 0.0 % (0.0-2.0) 0.1 % (0.0-2.0) Neutrophils # (Auto) 12.0 TH/MM3 10.9 TH/MM3 (1.8-7.7) (1.8-7.7) Lymphocytes # (Auto) 0.2 TH/MM3 0.3 TH/MM3 (1.0-4.8) (1.0-4.8) Monocytes # (Auto) 0.4 TH/MM3 0.7 TH/MM3 (0-0.9) (0-0.9) Eosinophils # (Auto) 0.0 TH/MM3 0.0 TH/MM3 (0-0.4) (0-0.4) Basophils # (Auto) 0.0 TH/MM3 0.0 TH/MM3 (0-0.2) (0-0.2) CBC Comment DIFF FINAL DIFF FINAL Differential Comment Sodium Level 141 MEQ/L 143 MEQ/L (136-145) (136-145) Potassium Level 4.2 MEQ/L 4.0 MEQ/L (3.5-5.1) (3.5-5.1) Chloride Level 108 MEQ/L 109 MEQ/L (98-107) (98-107) Carbon Dioxide Level 25.1 MEQ/L 27.0 MEQ/L (21.0-32.0) (21.0-32.0) Anion Gap 8 MEQ/L (5-15) 7 MEQ/L (5-15) Blood Urea Nitrogen 30 MG/DL (7-18) 25 MG/DL (7-18) Creatinine 1.27 MG/DL 1.10 MG/DL (0.60-1.30) (0.60-1.30) Estimat Glomerular Filtration 56 ML/MIN (>89) 66 ML/MIN (>89) Rate Random Glucose 150 MG/DL 126 MG/DL (74-106) (74-106) Calcium Level 8.0 MG/DL 8.1 MG/DL (8.5-10.1) (8.5-10.1) Phosphorus Level 2.6 MG/DL (2.5-4.9) Magnesium Level 2.2 MG/DL (1.5-2.5) Total Bilirubin 0.4 MG/DL 0.3 MG/DL (0.2-1.0) (0.2-1.0) Aspartate Amino Transf 39 U/L (15-37) 27 U/L (15-37) (AST/SGOT) Alanine Aminotransferase 54 U/L (12-78) 51 U/L (12-78) (ALT/SGPT) Alkaline Phosphatase 71 U/L (45-117) 66 U/L (45-117) Troponin I 1.92 NG/ML (0.02-0.05) Total Protein 5.0 GM/DL 4.9 GM/DL (6.4-8.2) (6.4-8.2) Albumin 2.7 GM/DL 2.5 GM/DL (3.4-5.0) (3.4-5.0) . Result Diagram: 12/19/16 0307 12/19/16 0307 Microbiology Microbiology Date/Time Procedure Status Source Growth 12/17/16 18:05 Aerobic Blood Culture - Preliminary Resulted Blood Peripheral NO GROWTH IN 1 DAY 12/17/16 18:05 Anaerobic Blood Culture - Preliminary Resulted Gram Positive Cocci 12/17/16 18:10 Aerobic Blood Culture - Preliminary Resulted Blood Peripheral NO GROWTH IN 1 DAY 12/17/16 18:10 Anaerobic Blood Culture - Preliminary Resulted Gram Positive Cocci . Imaging Last Impressions Chest X-Ray 12/17/16 1753 Signed Impressions: Service Date/Time: Saturday, December 17, 2016 17:54 - CONCLUSION: Satisfactory ET tube positioning. Earl Zapata MD . Procedures * Intubation/Mechanical ventilation . Patient/Family Conference Present at Family Conference: Made separate phone calls to : * Brianna Richardson ([id number]) * Pako Bunch (biological son) * Yony Alva ([employer] on Aging Per Diem Interpreter) Total time of phone conversations over 35 minutes. . Family Conference Time (mins): 35 Family Conference Location: Telephone Issues Discussed: * Additional medical, psychosocial, and spiritual history * Patients general health, functional status, and cognitive changes in the months leading up to the current hospitalization * Patient/family understanding of the current medical problems * Patient/family understanding of prognosis * Patients goals of care as best understood from advance directives and/or conversations and/or values * Questions answered to the best of my ability . Assessment and Plan Disease Oriented Problem List: (1) COPD (chronic obstructive pulmonary disease) (2) COPD exacerbation (3) NSTEMI (non-ST elevated myocardial infarction) Comment: Elevated troponin and CK MB fraction on this admission . (4) Alcohol abuse (5) CAD (coronary artery disease) (6) Sepsis Comment: Blood growing out gram positive cocci . (7) Hypoalbuminemia (8) Tremor Comment: Reportedly worsening over the last year. Unclear if this has been worked up by a physician. . (9) Hard of hearing (10) Anemia Symptom Scale: (1) Pain 0-10 Scale: Unable to quantify Comment: No significant pain syndromes prior to this hospitalization but did occasionally complain of back pain and minor arthritis pains. Current sources of discomfort might include prolonged bedbound status; restraints; Samaniego catheter; orogastric and orotracheal intubation's; vascular access lines; and SCDs.. . (2) Agitation 0-10 Scale: Unable to quantify Comment: Nursing reports the patient is severely agitated when not sedated. Nurse feels patient made an intentional effort to kick her on 05/03/17. Unclear if this agitation is an ICU delirium or perhaps from alcohol withdrawal. . (3) Dyspnea 0-10 Scale: Unable to quantify Comment: Patient's dyspnea was quite severe when he first arrived in the emergency department. Appears adequately managed now with intubation and mechanical ventilation and sedation. . Pertinent Non-Medical Issues Psychosocial: Spiritual: Legal: Ethical issues impacting care: Important Contacts * Pako Bunch (son / co-proxy): [phone] * Zaina Dillon (daughter / co-proxy ): [phone] * Ninfa Richardson (step-daughter): [phone] . Prognosis Mr. Bunch has lung disease that has been progressing over time. He is mostly oxygen dependent at this point. He can typically walk from car to store front but now needs an electric cart to get around. His recent "bounce-back" hospitalization raises concerns that it will be hard to keep the patient out of the hospital in the future. On this hospitalization he has appeared to have suffered a non-ST segment myocardial infarction and also appears to be septic. It is possible that the patient continues with alcohol abuse which would also adversely effect prognosis. Prognosis will likely be more accurate we see how the patient does when sepsis is treated and respiratory status stabilizes. If he becomes quite challenging to wean from the ventilator or shows evidence of heart failure from his recent myocardial infarction, long-term prognosis will not be favorable and he would be a good candidate for hospice care if his goals are primarily comfort oriented. . Code Status: Full Code (Patient will remain full code at least until daughter arrives unless patinet becomes capacitated and tells us otherwise. ) Plan == CODE STATUS: Full Code. Though patient reportedly wanted to complete a DNR document, this did not take place. He remains FULL CODE until his biological daughter arrives (driving down from [place]) and can see him and make decisions for him if the patient, himself does not become capacitated. == Decision Making: Mr Bunch is currently intubated and mechanically ventilated. He is requiring sedation to prevent severe agitation. At this time he is incapacitated to make his own health care decisions. There is a reasonable chance that he will re-gain capacity. As he is not legally at this time, health care decision making would fall to his two biological children. His daughter , Zaina, is driving down from [place] to be present for decision making. == Goals: The patient is unable to provide his own goals of medical treatment at this time. According to his stepdaughter, Brianna, he would not want to be on life support and would want a "do not resuscitate" order. As the patient has not written this down anywhere and since on a is not a legal decision-maker we will need to wait for the patient to become capacitated or for his biological children to make decisions regarding goals. == History regarding patient's alcohol consumption appears variable. It is possible he continues to drink large amounts of beer at home. Have spoken with Dr. Lobato to alert him of the possibility of alcohol withdrawal. == Dyspnea: Currently controlled with intubation/mechanical ventilation and sedation. No further recommendations at this time. == Pain: Sources of discomfort probably include intubations; restraints; Samaniego catheter; vascular access lines; and prolonged bedbound status. Had some chronic back pain . Orders are available for morphine and fentanyl. These appear adequate. No further recommendations at this time. == Agitation: Unclear if the agitation is delirium or perhaps evidence of alcohol withdrawal. Patient currently has orders for propofol and lorazepam. These appear adequate. No further recommendations at this time. == Case discussed with Dr. Isatu Lobato. == Based on above, recommend that aggressive care continue to address sepsis, NC, COPD exacerbation. When daughter arrives from [place], will try and arrange a family conference unless patient is able to communicate better and educated the medical team on his goals and preferences. Patient's response to aggressive treatments over the next days will also be information that can guide us on prognosis. Though only the daughter is coming to visit, son wants to be kept in the loop. . Thank you for the opportunity to participate in the care of Mr. Bunch. . Attestation To help prompt me to consider important information that might be impacting today's encounter and assessment, information from prior notes written by myself or my colleagues may have been "brought forward" into today's note. My signature on this note, however, is an attestation that I personally performed the exam, history, and/or decision-making noted today, and, unless otherwise indicated, the interactions with patient, family, and staff as well as the review of records all occurred today. I also attest that the listed assessment and stated plan reflect my best clinical judgment today based on the combination of historical information, prior notes, and today's exam/ interactions. When time spent is documented, it refers only to time spent today by the signer, or if indicated, combined time spent today by collaborating physician/nurse practitioner. . Aden Hardy MD December 19, 2016 10:46
--- NOTE | 2016-12-19 10:56 | HHI.CCPN ---
Subjective Remarks/Hospital Course Patient is a 71 y/o M with PMHx of coronary artery disease with stent placement in 2013, CVA with no residual deficits, COPD on 2 L oxygen 24 hour a day/ asthma , GERD, and Atrial fibrillation s/p cardiac ablation x2. He was recently discharged on 12/15 after hospitalization for a COPD exacerbation and R middle lobe PNA. He was treated with azithromycin for 5 days and ceftriaxone for 3 days with steroids. He was discharged home after a 3 day hospital stay. He then presented to the ED on 12/17 in respiratory failure and was intubated. 12/18: No acute events overnight. Patient remains intubated and sedated. Step- daughter at bedside, Ninfa Richardson, who confirms patient's home oxygen requirement and constant respiratory issues. She states that he has not completed his DNR paperwork, but that it was his wish to avoid life saving measures. However, she is not his POA as he has children. She states that she will reach out to them today for input on medical decision making going forward. 12/19: Patient remains intubated with no acute events overnight. Patient afebrile with VSS. Patient aggressive while on propofol with attempts to self extubate; fentanyl infusion added per protocol to assist with agitation. Palliative consulted to assist with goals of care and guidance regarding decision maker. Objective Vital Signs Date Time Temp Pulse Resp B/P Pulse Ox O2 Delivery O2 Flow Rate FiO2 12/19/16 10:20 98 40 12/19/16 06:00 60 12/19/16 04:00 97.9 16 114/63 12/17/16 23:15 Ventilator 12/17/16 18:15 2 Intake and Output 12/18/16 12/18/16 12/19/16 08:00 16:00 00:00 Intake Total 1050 ml 1020 ml 481 ml Output Total 300 ml 350 ml 1150 ml Balance 750 ml 670 ml -669 ml Result Diagram: 12/19/16 0307 12/19/16 0307 Imaging Last 24 hours Impressions Chest X-Ray 12/17/16 0482 Signed Impressions: Service Date/Time: Saturday, December 17, 2016 17:54 - CONCLUSION: Satisfactory ET tube positioning. Earl Zapata MD Objective Remarks GENERAL: Sedated and intubated elderly man SKIN: Warm and dry. HEAD: Normocephalic. EYES: No scleral icterus. No injection or drainage. NECK: Supple, trachea midline. No JVD or lymphadenopathy. CARDIOVASCULAR: Regular rate and rhythm without murmurs, gallops, or rubs. RESPIRATORY: Orally intubated on mechanical ventilation, Breath sounds equal bilaterally with mild wheezing and scattered rhonchi. GASTROINTESTINAL: Abdomen soft, non-tender, nondistended with +BS. MUSCULOSKELETAL: No cyanosis, or edema. NEURO: Intubated and sedated. A/P Problem List: (1) COPD exacerbation ICD Code: J44.1 Status: Acute (2) PNA (pneumonia) ICD Code: J18.9 Status: Acute (3) A-fib ICD Code: I48.91 Status: Chronic (4) NSTEMI (non-ST elevated myocardial infarction) ICD Code: I21.4 Status: Acute Assessment and Plan Neuro: - Intubated and Sedated with propofol and fentanyl. Daily sedation vacation - Depression - Questionable alcohol abuse - Propofol and Fentanyl drips per protocol - Neurochecks per [facility] protocol - Discontinue Zoloft in case need to use zyvox for GPC bacteremia. - We will add thiamine/MVI, Ativan when necessary with CIWA protocol Respiratory: - Acute respiratory failure - COPD exacerbation - Possible ongoing pneumonia (HCAP) - Intubated and sedated - DuoNeb scheduled and when necessary - Legionella and Streptococcal urinary antigens pending - BC x2: Gram Positive cocci in clusters x2; prior cultures all negative - Repeat CXR ordered for 12/20 - Repeat BC ordered for 12/21 - Zosyn and Azithromycin (12/17- ) - Zyvox ordered, however is contraindicated as patient is on Zoloft - Vancomycin 15mg/kg ordered (12/18- ), pharmacy consulted - IV Solumedrol Q8H Cardiac: - Coronary artery disease - Stent placement in 2014 - Atrial fibrillation ablation x2 - Troponin 0.12, 1.19, 1.92 with CKMB up to 4.7. - EKG: Sinus tachycardia with L axis deviation. - Continue Amiodarone, Atorvastatin, and Xarelto, ASA, statin - Cardiology consulted GI: - GERD - Omeprazole - Tube feeds per protocol Renal: - KADI on admission - KADI resolved with fluid resuscitation - Monitor I/Os, cortes placed Endocrine: - Tube feeds per protocol - SSI for glycemic control as needed. - Monitor BG per [facility] protocol Heme/ID: - Leukocytosis with left shift s/p steroids - BC x2: Gram Positive cocci in clusters x2; prior cultures all negative - Repeat BC ordered for 5 - Zosyn and Azithromycin (12/17- ) - Vancomycin (12/18- ) - Continue to monitor CBC, transfuse if necessary - Infectious Disease consulted DVT - On Xarelto, MO/SCDs GI prophylaxis - Omeprazole Palliative Care consulted to assist with goals of care Addendum: Patient seen and examined earlier. Discussed findings, assessment and plan with Dr. Olivier. Agree with above note. Discussed with Dr. Hardy. Patient's daughter from [place] is going to be driving down and his son from [place] also wishes to be involved in his care. Problem Qualifiers (1) PNA (pneumonia): Qualified Code: J18.9 - Pneumonia due to infectious organism, unspecified laterality, unspecified part of lung Isac Olivier MD R1 December 19, 2016 10:56 Kunal Lboato MD December 19, 2016 20:07
[2016-12-19] MEDS ORDERED: Vancomycin Consult Pharmacy 1 EA OTHER SCH (11:30)
[2016-12-19] MEDS ORDERED: VANCOMYCIN INJ 1,000 MG in SODIUM CHLOR 0.9% 250 ML INJ 250 ML IV ONE (12:00)
--- NOTE | 2016-12-19 14:41 | PD.CONS ---
History of Present Illness Service Infectious disease Consult Requested By Dr Isatu Lobato, Dr Olivier Reason for Consult Evaluate patient with positive blood culture Primary Care Physician Khari Wellington MD Diagnoses: History of Present Illness Patient seen and examined. Records reviewed. Patient is a 71-year-old male presented to the hospital with severe shortness of breath. He was recently hospitalized December 13 to December 16 with shortness of breath. At that time his initial chest x-ray showed a mild infiltrate in the right upper lobe, and he was treated for pneumonia and COPD exacerbation. He was improving, and his chest x-ray showed clear on the day of discharge. At home he had an acute onset of severe respiratory distress, and EMS was called. He was hypoxic, and in the ED he was urgently intubated. His chest x-rays now showing some perihilar infiltrates. He has not been febrile. 2 blood cultures on admission are now reported as growing gram-positive cocci. He was started on Zithromax, Zosyn and Zyvox on presentation. Currently Zyvox was changed to IV vancomycin. Infectious disease consultation is requested to evaluate the patient. Review of Systems ROS Limitations: Clinical Condition, Intubated Past Family Social History Allergies: Coded Allergies: Codeine (Verified Allergy, Intermediate, 12/17/16) Past Medical History Coronary artery disease with stent placement in 2013 CVA with no residual deficits COPD/ asthma GERD Atrial fibrillation s/p ablation Past Surgical History Cardiac ablation x2 Right inguinal hernia repair Cataract surgery bilaterally Appendectomy Tonsils and adenoids Fatty tumor removed Active Ordered Medications Tylenol prn Albuterol prn Cordarone Ecotrin Lipitor Zithromax Colace Fentanyl Folic acid Insulin Ativan Solumedrol Versed Morphine prn MVI Zofran prn Protonix Zosyn Diprivan Beneprotein powder Xarelto Vancomycin Social History Ex smoker, quit smoking in 1995 Drinks socially No illicit drugs Physical Exam Vital Signs Vital Signs Date Time Temp Pulse Resp B/P Pulse Ox O2 Delivery O2 Flow Rate FiO2 12/19/16 12:14 98 40 12/19/16 11:15 55 16 92/54 98 12/19/16 10:20 98 40 12/19/16 10:00 66 12/19/16 08:00 70 12/19/16 08:00 98.5 70 18 134/74 98 12/19/16 08:00 50 12/19/16 06:00 60 12/19/16 04:00 66 12/19/16 04:00 50 12/19/16 04:00 97.9 66 16 114/63 99 12/19/16 03:54 99 40 12/19/16 02:00 54 12/19/16 00:06 100 40 12/19/16 00:00 78 12/19/16 00:00 50 12/19/16 00:00 97.8 64 16 132/80 99 12/18/16 22:00 58 12/18/16 22:00 60 12/18/16 20:57 99 40 12/18/16 20:00 50 12/18/16 20:00 62 12/18/16 20:00 98.0 62 16 146/84 100 12/18/16 18:00 59 12/18/16 16:00 54 12/18/16 16:00 50 12/18/16 16:00 98.2 61 18 121/71 100 12/18/16 14:59 100 50 Physical Exam GENERAL: This is a well-nourished, well-developed male, on sedation, but he awakens easily, and currently has restraints of his wrist and feet. He looks comfortable on assist control. SKIN: Cool and dry. No generalized rash. He has no evidence of phlebitis in any of his previous IV sites. HEAD: Atraumatic. Normocephalic. No temporal or scalp tenderness. EYES: [place] conjunctivae, no petechia or hemorrhage. Pupils equal round and reactive. Extraocular motions intact. No scleral icterus. No injection or drainage. ENT: Nose without bleeding, or purulent drainage. Endotracheal tube is in the mouth, he has moist oral mucosa. NECK: Trachea midline. No JVD or lymphadenopathy. Supple, nontender, no meningeal signs. CARDIOVASCULAR: Regular rate and rhythm without murmurs, gallops, or rubs. RESPIRATORY: Scattered wheezing, and decreased breath sounds at the bases. Breath sounds equal bilaterally. GASTROINTESTINAL: Abdomen soft, bowel sounds are present and normoactive, non- tender, nondistended. No hepato-splenomegaly, or palpable masses. No guarding. No rebound. MUSCULOSKELETAL: Extremities without clubbing, cyanosis, or edema. No joint effusion, or edema noted. No calf tenderness. NEUROLOGICAL: Awakens easily. No facial asymmetry. Moves all extremities. No Babinski, no clonus. PSYCH: Unable to assess LINE: PIV with no evidence of infection : Samaniego cath in place, has sediment in tubing Laboratory Laboratory Tests Test 12/19/16 03:07 White Blood Count 11.9 Red Blood Count 3.20 Hemoglobin 9.3 Hematocrit 27.5 Mean Corpuscular Volume 86.1 Mean Corpuscular Hemoglobin 29.2 Mean Corpuscular Hemoglobin 33.9 Concent Red Cell Distribution Width 17.8 Platelet Count 170 Mean Platelet Volume 9.3 Neutrophils (%) (Auto) 91.7 Lymphocytes (%) (Auto) 2.5 Monocytes (%) (Auto) 5.7 Eosinophils (%) (Auto) 0.0 Basophils (%) (Auto) 0.1 Neutrophils # (Auto) 10.9 Lymphocytes # (Auto) 0.3 Monocytes # (Auto) 0.7 Eosinophils # (Auto) 0.0 Basophils # (Auto) 0.0 CBC Comment DIFF FINAL Differential Comment Sodium Level 143 Potassium Level 4.0 Chloride Level 109 Carbon Dioxide Level 27.0 Anion Gap 7 Blood Urea Nitrogen 25 Creatinine 1.10 Estimat Glomerular Filtration 66 Rate Random Glucose 126 Calcium Level 8.1 Total Bilirubin 0.3 Aspartate Amino Transf 27 (AST/SGOT) Alanine Aminotransferase 51 (ALT/SGPT) Alkaline Phosphatase 66 Total Protein 4.9 Albumin 2.5 Date/Time Procedure Status Source Growth 12/17/16 18:10 Aerobic Blood Culture - Preliminary Resulted Blood Peripheral NO GROWTH IN 2 DAYS 12/17/16 18:10 Anaerobic Blood Culture - Preliminary Resulted Staphylococcus Species Result Diagram: 12/19/16 0307 12/19/16 0307 Imaging RADIOLOGY STUDIES/FILMS REVIEWED Chest X-Ray 12/17/16 0009 Signed Impressions: Service Date/Time: Saturday, December 17, 2016 17:54 - CONCLUSION: Satisfactory ET tube positioning. Earl Zapata MD Assessment and Plan Assessment and Plan IMPRESSION Bacteremia, with Coag Neg Staph, ?significance - he has no line, no hardware Respiratory failure, has known severe COPD - has had Rx for PNA - ?new PNA or just exac of his COPD RECOMMENDATION Repeat BC UA and C/S Sputum G/S C/S Continue Zosyn and Vancomycin Also on Zithromax Follow C/S Monitor progress Palliative medicine following I will follow along with you Thank you for this consultation Soumya Brown MD December 19, 2016 14:41
[2016-12-19] MEDS: AZITHROMYCIN INJ 500 MG in SODIUM CHLOR 0.9% 250 ML INJ 250 ML IV SCH (20:04)
[2016-12-19] MEDS: ATORVASTATIN 20 MG TAB PO SCH (20:05)
[2016-12-19] MEDS ORDERED: HALOPERIDOL LACTATE 5 MG/ML AMP IM PRN (20:15)
[2016-12-19] MEDS ORDERED: LORazepam 2 MG TAB PO PRN (20:15)
[2016-12-19] MEDS ORDERED: FLUMAZENIL 0.5 MG/5 ML VIAL IV PUSH PRN (20:15)
[2016-12-19] MEDS ORDERED: LORazepam 1 MG TAB PO PRN (20:15)
[2016-12-19] MEDS ORDERED: LORazepam 2 MG/ML VIAL IV PUSH PRN ×4 (20:15)
[2016-12-19] MEDS: THIAMINE HCL 100 MG TAB PO SCH (21:27)
[2016-12-20] VITALS (17 sets, daily range): BP systolic 91–147; BP diastolic 50–81; PULSE 54–76; RESP 17–22; TEMP 98–100; O2SAT 95–98
[2016-12-20] MEDS: VANCOMYCIN 1,000 MG/NS 250 ML IV SCH ×4 (00:27→13:02)
[2016-12-20] MEDS: CHLORHEXIDINE GLUCONATE 2 % 1 PACK (2 CLOTHS) TOP SCH (03:40)
[2016-12-20] MEDS: methylPREDNISolone SOD SUCC 40 MG/1 ML VIAL IV PUSH SCH ×3 (03:44→20:43)
[2016-12-20] MEDS: PROPOFOL 1000 MG/100 ML INJ 100 ML IV SCH ×3 (03:44→21:01)
[2016-12-20] MEDS: PIPERACIL-TAZO 4.5 GM PREMIX 100 ML IV SCH ×4 (03:45→20:37)
[2016-12-20] MEDS: INSULIN ASPART SUPPLEMENTAL SCALE SQ SCH ×4 (03:46→23:54)
[2016-12-20] MEDS: RESP: ALBUTEROL 2.5 MG/IPRATROPIUM 0.5 MG NEB (SCH) NEB ×4 (04:27→20:45)
[2016-12-20 04:28] LABS: AUTOMATED NEUTROPHIL # 12.8 TH/MM3 (1.8-7.7); BASOPHIL % 0.1 % (0.0-2.0); HEMATOCRIT 29.2 % (39.0-51.0); HEMO FLAGS DIFF FINAL; LYMPH % 1.7 % (9.0-44.0); LYMPHOCYTE # 0.2 TH/MM3 (1.0-4.8); MEAN CELL VOLUME 86.9 FL (80.0-100.0); MEAN CORPUSCULAR HEMOGLOBIN 29.9 PG (27.0-34.0); MEAN CORPUSCULAR HGB CONC 34.4 % (32.0-36.0); MONO % 3.4 % (0.0-8.0); NEUT % 94.8 % (16.0-70.0); PLATELET COUNT 185 TH/MM3 (150-450); RED BLOOD COUNT 3.36 MIL/MM3 (4.50-5.90); RED CELL DISTRIBUTION WIDTH 18.4 % (11.6-17.2); WHITE BLOOD COUNT 13.5 TH/MM3 (4.0-11.0)
[2016-12-20 04:40] LABS: BICARBONATE 26.9 MEQ/L (21.0-32.0); POTASSIUM 4.2 MEQ/L (3.5-5.1)
--- NOTE | 2016-12-20 04:55 | RADRPT ---
EXAM DATE/TIME: 12/20/2016 02:46 [facility] COMPARISON: CHEST SINGLE AP, December 17, 2016, 17:54. INDICATIONS : Shortness of breath, possible pulmonary disease. MEDICAL HISTORY : None. SURGICAL HISTORY : Coronary artery stent. ENCOUNTER: Subsequent ACUITY: 1 week PAIN SCORE: Non-responsive. LOCATION: Bilateral chest FINDINGS: The cardiac silhouette is enlarged in transverse diameter. The lungs are free of acute parenchymal op acity. No effusions are identified. Support lines and tubes are in satisfactory position. CONCLUSION: 1. Cardiomegaly. No acute pulmonary disease. Chris Schumacher MD on December 20, 2016 at 4:53 Board Certified Radiologist. This report was verified electronically.
[2016-12-20] MEDS: BENEPROTEIN POWDER 1 PACK G-TUBE SCH ×3 (09:00→18:00)
[2016-12-20] MEDS: SODIUM CHLORIDE 0.9% FLUSH 10 ML FLUSH SCH ×2 (09:00→20:35)
[2016-12-20] MEDS: DOCUSATE SODIUM 100 MG/10 ML UDC G-TUBE SCH ×2 (10:31→20:36)
[2016-12-20] MEDS: RIVAROXABAN 20 MG TAB PO SCH (10:32)
[2016-12-20] MEDS: ASPIRIN EC 81 MG TABEC PO SCH (10:32)
[2016-12-20] MEDS: THIAMINE HCL 100 MG TAB PO SCH (10:32)
[2016-12-20] MEDS: PANTOPRAZOLE SOD 40 MG DELAYED RELEASE TAB PO SCH (10:32)
[2016-12-20] MEDS: FOLIC ACID 1 MG TAB PO SCH (10:33)
[2016-12-20] MEDS: MULTIVITAMINS/MINERALS THERAPEUTIC TAB PO SCH (10:33)
[2016-12-20] MEDS: SODIUM CHLOR 0.9% 1000 ML INJ 1,000 ML IV SCH ×2 (10:33→20:35)
[2016-12-20] MEDS: AMIODARONE 200 MG TAB PO SCH (10:33)
[2016-12-20] MEDS: ARTIFICIAL TEARS OPTH SOLN 15 ML BTL EACH EYE SCH ×3 (10:34→18:09)
[2016-12-20] MEDS: LORazepam 2 MG/ML VIAL IV PRN (10:59)
--- NOTE | 2016-12-20 11:05 | HHI.IDPN ---
Subjective Subjective Remarks Notes reviewed Temps ok Agitated has restraints On the vent No new (+) BC No ID yet on (+) BC Antibiotics Vancomycin Zosyn Zithromax Past Medical History Coronary artery disease with stent placement in 2013 CVA with no residual deficits COPD/ asthma GERD Atrial fibrillation s/p ablation Past Surgical History Cardiac ablation x2 Right inguinal hernia repair Cataract surgery bilaterally Appendectomy Tonsils and adenoids Fatty tumor removed Allergies: Coded Allergies: Codeine (Verified Allergy, Intermediate, 12/17/16) Objective . Vital Signs Date Time Temp Pulse Resp B/P Pulse Ox O2 Delivery O2 Flow Rate FiO2 12/20/16 08:04 97 30 12/20/16 06:00 60 12/20/16 04:00 30 12/20/16 04:00 60 12/20/16 04:00 98.4 60 18 99/58 97 12/20/16 02:00 58 12/20/16 00:00 30 12/20/16 00:00 98.0 61 18 116/72 98 12/20/16 00:00 61 12/19/16 23:54 100 30 12/19/16 22:00 53 12/19/16 20:00 50 12/19/16 20:00 98.2 55 18 100/65 97 12/19/16 20:00 55 12/19/16 19:49 99 40 12/19/16 18:00 60 12/19/16 16:45 70 19 112/65 99 12/19/16 16:30 62 17 118/65 99 12/19/16 16:15 51 16 98/58 98 12/19/16 16:11 99 40 12/19/16 16:00 47 12/19/16 16:00 98.0 47 16 87/53 98 12/19/16 16:00 40 12/19/16 15:15 46 16 92/58 98 12/19/16 15:00 47 16 86/56 98 12/19/16 14:45 51 16 101/60 98 12/19/16 14:30 59 18 106/60 99 12/19/16 14:15 52 16 83/48 97 12/19/16 14:00 47 12/19/16 14:00 47 16 88/51 97 12/19/16 13:45 47 16 90/54 97 12/19/16 13:30 48 16 82/50 97 12/19/16 13:15 56 17 92/53 98 12/19/16 13:00 48 16 88/54 98 12/19/16 12:45 47 16 92/52 98 12/19/16 12:30 98.0 50 16 91/51 98 12/19/16 12:15 50 16 86/54 97 12/19/16 12:14 98 40 12/19/16 12:00 48 12/19/16 12:00 40 12/19/16 12:00 48 16 95/54 97 12/19/16 11:15 55 16 92/54 98 12/19/16 12/19/16 12/20/16 15:00 23:00 07:00 Intake Total 1790 ml 1001 ml 1290 ml Output Total 400 ml 450 ml 600 ml Balance 1390 ml 551 ml 690 ml IV Total 1201 ml 733 ml 820 ml Tube Feeding 489 ml 268 ml 410 ml Other 100 ml 60 ml Output Urine Total 400 ml 450 ml 600 ml # Bowel Movements 0 0 . Laboratory Tests Test 12/19/16 12/20/16 03:07 03:13 White Blood Count 11.9 TH/MM3 13.5 TH/MM3 Red Blood Count 3.20 MIL/MM3 3.36 MIL/MM3 Hemoglobin 9.3 GM/DL 10.0 GM/DL Hematocrit 27.5 % 29.2 % Mean Corpuscular Volume 86.1 FL 86.9 FL Mean Corpuscular Hemoglobin 29.2 PG 29.9 PG Mean Corpuscular Hemoglobin 33.9 % 34.4 % Concent Red Cell Distribution Width 17.8 % 18.4 % Platelet Count 170 TH/MM3 185 TH/MM3 Mean Platelet Volume 9.3 FL 9.6 FL Neutrophils (%) (Auto) 91.7 % 94.8 % Lymphocytes (%) (Auto) 2.5 % 1.7 % Monocytes (%) (Auto) 5.7 % 3.4 % Eosinophils (%) (Auto) 0.0 % 0.0 % Basophils (%) (Auto) 0.1 % 0.1 % Neutrophils # (Auto) 10.9 TH/MM3 12.8 TH/MM3 Lymphocytes # (Auto) 0.3 TH/MM3 0.2 TH/MM3 Monocytes # (Auto) 0.7 TH/MM3 0.5 TH/MM3 Eosinophils # (Auto) 0.0 TH/MM3 0.0 TH/MM3 Basophils # (Auto) 0.0 TH/MM3 0.0 TH/MM3 CBC Comment DIFF FINAL DIFF FINAL Differential Comment Laboratory Tests Test 12/19/16 12/20/16 03:07 03:13 Sodium Level 143 MEQ/L 143 MEQ/L Potassium Level 4.0 MEQ/L 4.2 MEQ/L Chloride Level 109 MEQ/L 110 MEQ/L Carbon Dioxide Level 27.0 MEQ/L 26.9 MEQ/L Anion Gap 7 MEQ/L 6 MEQ/L Blood Urea Nitrogen 25 MG/DL 36 MG/DL Creatinine 1.10 MG/DL 1.14 MG/DL Estimat Glomerular Filtration 66 ML/MIN 63 ML/MIN Rate Random Glucose 126 MG/DL 194 MG/DL Calcium Level 8.1 MG/DL 8.2 MG/DL Total Bilirubin 0.3 MG/DL Aspartate Amino Transf 27 U/L (AST/SGOT) Alanine Aminotransferase 51 U/L (ALT/SGPT) Alkaline Phosphatase 66 U/L Total Protein 4.9 GM/DL Albumin 2.5 GM/DL Microbiology Date/Time Procedure Status Source Growth 12/17/16 18:05 Aerobic Blood Culture - Preliminary Resulted Blood Peripheral Gram Positive Cocci 12/17/16 18:05 Anaerobic Blood Culture - Final Resulted Staphylococcus Epidermidis 12/17/16 18:10 Aerobic Blood Culture - Preliminary Resulted Blood Peripheral NO GROWTH IN 2 DAYS 12/17/16 18:10 Anaerobic Blood Culture - Preliminary Resulted Staphylococcus Species 12/19/16 15:45 Aerobic Blood Culture Received Blood Peripheral Pending 12/19/16 15:45 Anaerobic Blood Culture Received Blood Peripheral Pending 12/19/16 15:50 Aerobic Blood Culture Received Blood Peripheral Pending 12/19/16 15:50 Anaerobic Blood Culture Received Blood Peripheral Pending 12/19/16 16:10 Gram Stain - Final Resulted Sputum Endotracheal 12/19/16 16:10 Sputum Culture Resulted Sputum Endotracheal Pending Imaging Last Impressions Chest X-Ray 12/20/16 0600 Signed Impressions: Service Date/Time: , December 20, 2016 02:46 - CONCLUSION: 1. Cardiomegaly. No acute pulmonary disease. Chris Schumacher MD Physical Exam GENERAL: Awake, restless, on the vent. SKIN: Cool and dry. No generalized rash. He has no evidence of phlebitis in any of his previous IV sites. HEAD: Atraumatic. Normocephalic. No temporal or scalp tenderness. EYES: [place] conjunctivae, no petechia or hemorrhage. No scleral icterus. No injection or drainage. ENT: Nose without bleeding, or purulent drainage. Endotracheal tube is in the mouth, he has moist oral mucosa. NECK: Trachea midline. No JVD or lymphadenopathy. Supple, nontender, no meningeal signs. CARDIOVASCULAR: Regular rate and rhythm without murmurs, gallops, or rubs. RESPIRATORY: Scattered wheezing, and decreased breath sounds at the bases. GASTROINTESTINAL: Abdomen soft, bowel sounds are present and normoactive, non- tender, nondistended. No hepato-splenomegaly, or palpable masses. No guarding. No rebound. MUSCULOSKELETAL: Extremities without clubbing, cyanosis, or edema. No joint effusion, or edema noted. No calf tenderness. NEUROLOGICAL: Awakens easily. No facial asymmetry. Moves all extremities. No Babinski, no clonus. PSYCH: Unable to assess LINE: PIV with no evidence of infection : Samaniego cath in place, has sediment in tubing Assessment & Plan Remarks IMPRESSION Bacteremia, with Coag Neg Staph, ?significance - he has no line, no hardware Respiratory failure, has known severe COPD - has had Rx for PNA - ?new PNA or just exac of his COPD RECOMMENDATION Follow C/S Continue Zosyn and Vancomycin Also on Zithromax Follow C/S - adjust Abx once cultures available Monitor progress Palliative medicine following Dr Rayna Lobato covering for wa 12/21-11/23 Soumya Brown MD December 20, 2016 11:05
--- NOTE | 2016-12-20 11:45 | HHI.CCPN ---
Subjective Remarks/Hospital Course Patient is a 71 y/o M with PMHx of coronary artery disease with stent placement in 2013, CVA with no residual deficits, COPD on 2 L oxygen 24 hour a day/ asthma , GERD, and Atrial fibrillation s/p cardiac ablation x2. He was recently discharged on 12/15 after hospitalization for a COPD exacerbation and R middle lobe PNA. He was treated with azithromycin for 5 days and ceftriaxone for 3 days with steroids. He was discharged home after a 3 day hospital stay. He then presented to the ED on 12/17 in respiratory failure and was intubated. 12/18: No acute events overnight. Patient remains intubated and sedated. Step- daughter at bedside, Ninfa Richardson, who confirms patient's home oxygen requirement and constant respiratory issues. She states that he has not completed his DNR paperwork, but that it was his wish to avoid life saving measures. However, she is not his POA as he has children. She states that she will reach out to them today for input on medical decision making going forward. 12/19: Patient remains intubated with no acute events overnight. Patient afebrile with VSS. Patient aggressive while on propofol with attempts to self extubate; fentanyl infusion added per protocol to assist with agitation. Palliative consulted to assist with goals of care and guidance regarding decision maker. 12/20: No acute events overnight. Patient remains intubated on tube feeds. He has been afebrile with bradycardia and hypotension overnight. Patient with alcohol history and placed on CIWA protocol yesterday due to tremors, however per family does have history of tremor at baseline. Objective Vital Signs Date Time Temp Pulse Resp B/P Pulse Ox O2 Delivery O2 Flow Rate FiO2 12/20/16 08:04 97 30 12/20/16 06:00 60 12/20/16 04:00 98.4 18 99/58 12/17/16 23:15 Ventilator 12/17/16 18:15 2 Intake and Output 12/19/16 12/19/16 12/20/16 08:00 16:00 00:00 Intake Total 878 ml 1790 ml 1001 ml Output Total 550 ml 400 ml 450 ml Balance 328 ml 1390 ml 551 ml Result Diagram: 12/20/16 0313 12/20/16 031 Imaging Last 24 hours Impressions Chest X-Ray 12/17/16 1300 Signed Impressions: Service Date/Time: Saturday, December 17, 2016 17:54 - CONCLUSION: Satisfactory ET tube positioning. Earl Zapata MD Objective Remarks GENERAL: Intubated elderly man who is arousable on light sedation SKIN: Warm and dry. HEAD: Normocephalic. EYES: No scleral icterus. No injection or drainage. NECK: Supple, trachea midline. No JVD or lymphadenopathy. CARDIOVASCULAR: Regular rate and rhythm without murmurs, gallops, or rubs. RESPIRATORY: Orally intubated on mechanical ventilation, Breath sounds equal bilaterally with mild wheezing and scattered rhonchi. GASTROINTESTINAL: Abdomen soft, non-tender, nondistended with +BS. MUSCULOSKELETAL: No cyanosis, or edema. NEURO: Patient on light sedation. Able to answer yes/no questions with head nodding. Appears to attempt to talk despite ET tube. Urinary Catheter: Yes A/P Problem List: (1) COPD exacerbation ICD Code: J44.1 Status: Acute (2) PNA (pneumonia) ICD Code: J18.9 Status: Acute (3) A-fib ICD Code: I48.91 Status: Chronic (4) NSTEMI (non-ST elevated myocardial infarction) ICD Code: I21.4 Status: Acute Assessment and Plan Neuro: - Intubated and Sedated with propofol and fentanyl. - Depression - Questionable alcohol abuse - Baseline tremors per care coordinator - Team will attempt to ween off all sedation for possible CPAP trial with extubation this afternoon pending clinical course - [place] [facility] [place] - Restart Zoloft. Held 12/19 for Zyvox ABX treatment, however patient was started on Vancomycin in order for him to continue with his Zoloft. - We will add thiamine/MVI, Ativan when necessary with CIMT protocol. Patient has tremors at baseline per care coordinator. Respiratory: - Acute respiratory failure - COPD exacerbation - Possible ongoing pneumonia (HCAP) - Intubated and sedated, attempt CPAP/Extubation this afternoon pending clinical course - DuoNeb scheduled and when necessary - BC x2: Staph epidermidis with multiple resistances x2; prior cultures all negative - Repeat CXR 12/20: Cardiomegaly with no acute disease. - Repeat BC 12/20: NTD - Zosyn and Azithromycin (12/17- ) - Vancomycin 15mg/kg ordered (12/18- ), pharmacy consulted. Zyvox ordered, however is contraindicated as patient is on Zoloft - IV Solumedrol Q8H Cardiac: - Coronary artery disease - Stent placement in 2014 - Atrial fibrillation ablation x2 - NSTEMI - Troponin 0.12, 1.19, 1.92 with CKMB up to 4.7. - EKG: Sinus tachycardia with L axis deviation. - Continue Amiodarone, Atorvastatin, ASA, and Xarelto - Cardiology consulted GI: - GERD - Omeprazole - Tube feeds per protocol Renal: - KADI on admission - KADI resolved with fluid resuscitation - Monitor I/Os, cortes placed - NS at 84 ml/hr Endocrine: - Tube feeds held for possible CPAP/extubation this afternoon - SSI for glycemic control as needed. - Monitor BG [place] [facility] [place] Heme/ID: - Leukocytosis with left shift s/p steroids - BC x2: Gram Positive cocci in clusters x2; prior cultures all negative - Repeat BC 12/20: NTD - Zosyn and Azithromycin (12/17- ) - Vancomycin (12/18- ) - Continue to monitor CBC, transfuse if necessary - Infectious Disease consulted DVT - On Xarelto, MO/SCDs GI prophylaxis - Omeprazole Palliative Care consulted to assist with goals of care. Patient's daughter is coming down for [place] which could be a few days to assist with medical decision making. Discussed with HOOKER ON at bedside. I have seen and examined the patient and I discussed findings and plans with Dr. Olivier and agree with the above findings. This patient remains critically ill with one or more organ systems which are or may become a threat to life. I have spent in excess of 39 minutes discontinuously in the care and management of this patient. This time is exclusive of procedures, and includes, but is not limited to, evaluation of the patient, review of the medical record, discussions with family, consultants, nursing staff, or respiratory therapy, and documentation in the medical record. Physician Alexus Velez MD Problem Qualifiers (1) PNA (pneumonia): Qualified Code: J18.9 - Pneumonia due to infectious organism, unspecified laterality, unspecified part of lung Isac Olivier MD R1 December 20, 2016 11:45 Alexus Velez MD December 20, 2016 15:49
[2016-12-20] MEDS: SERTRALINE HCL 50 MG TAB PO SCH (14:08)
--- NOTE | 2016-12-20 16:52 | HHI.HCPN ---
Reason for visit a. To assist with evaluation and management of symptoms including: dyspnea; agitation; pain b. To assist medical decision maker(s) with: better understanding of current medical conditions; weighing benefits/burdens of medical treatment options; making medical treatment decisions. . Subjective/Interval History Patient remains in ICU. Intubated on mechanical ventilation. Patient in no acute distress, currently on Diprivan and fentanyl, awake and following some simple commands such as "squeeze my hand". Patient attempting to communicate by mouthing some words and nodding his head to yes/no questions. Denies pain or discomfort at this time. Patient remains a febrile, stable hemodynamically. Currently on 40% FiO2. Last laboratory 12/20/16 showing WBC 13.5, Hgb 10.0, platelet count 19.4. Sodium 143, potassium 4.2, BUN/creatinine 36/1.14. Albumin 2.5. Chest x-ray 12/20/16 showing cardiomegaly with no acute process. No family at bedside during my visit. Spoke with patient's daughter Zaina Dillon. She is on her way from [place] and is expected to arrive to [facility]. Palliative care to meet with daughter tomorrow morning. Medical update provided. Case discussed with bedside RN. . Family/friend interactions See interval note. . Advance Directives Living Will: Never completed Health Care Surrogate: Never completed Durable Power of Tree Faller: Never completed Advance Directive Specifics Date completed: Advance directives were never completed. . Health Care Surrogate(s): No written designation of health care surrogate. . Documented care wishes: No written documentation of health care goals/preferences. . Objective Vital Signs Date Time Temp Pulse Resp B/P Pulse Ox O2 Delivery O2 Flow Rate FiO2 12/20/16 15:32 98 40 12/20/16 14:00 69 12/20/16 13:34 96 40 12/20/16 12:00 58 12/20/16 12:00 30 12/20/16 12:00 99.3 60 19 91/50 95 12/20/16 10:00 74 12/20/16 08:04 97 30 12/20/16 08:00 99.2 58 17 94/51 96 12/20/16 08:00 30 12/20/16 08:00 58 12/20/16 06:00 60 12/20/16 04:00 30 12/20/16 04:00 60 12/20/16 04:00 98.4 60 18 99/58 97 12/20/16 02:00 58 12/20/16 00:00 30 12/20/16 00:00 98.0 61 18 116/72 98 12/20/16 00:00 61 12/19/16 23:54 100 30 12/19/16 22:00 53 12/19/16 20:00 50 12/19/16 20:00 98.2 55 18 100/65 97 12/19/16 20:00 55 12/19/16 19:49 99 40 12/19/16 18:00 60 12/19/16 16:45 70 19 112/65 99 Intake & Output 12/20/16 12/20/16 06:59 18:59 Intake Total 2291 ml 1437 ml Output Total 1050 ml 375 ml Balance 1241 ml 1062 ml IV Total 1553 ml 1117 ml Tube Feeding 678 ml 260 ml Other 60 ml 60 ml Output Urine Total 1050 ml 375 ml # Bowel Movements 0 0 Physical Exam CONSTITUTIONAL/GENERAL: Adequately nourished; intubated; mechanically ventilated. TUBES/LINES/DRAINS: Orotracheal tube; orogastric tube; Samaniego catheter; SCDs; soft wrist restraints; peripheral IV SKIN: No jaundice, rashes, or lesions. Ecchymoses on upper extremities. No wounds seen anteriorly. Skin temperature appropriate. Not diaphoretic. HEAD: Atraumatic. Normocephalic. EYES: Pupils equal and round and reactive. No scleral icterus. No injection or drainage. ENT: Appears normal hearing. Nose without bleeding or purulent drainage. Difficult to assess oropharynx and throat due to intubations. NECK: Trachea midline. Supple. CARDIOVASCULAR: Regular rate and rhythm without murmurs, gallops, or rubs. No JVD. Peripheral pulses symmetric. RESPIRATORY/CHEST: Symmetric, unlabored respirations. Diminished breath sounds bilaterally. Breath sounds equal bilaterally. No wheezes, rales, or rhonchi. GASTROINTESTINAL: Abdomen soft, non-tender, nondistended. No guarding. Bowel sounds present. GENITOURINARY: Without palpable bladder distension. Samaniego catheter in place. MUSCULOSKELETAL: Extremities without clubbing, cyanosis, or edema. No joint tenderness or effusion noted. No calf tenderness. No mottling or clubbing. NEUROLOGICAL: Awake, alert. Following some simple commands. Attempting to communicate. PSYCHIATRIC: Appears comfortable. No anxiety noted. . Diagnostic Tests Laboratory Laboratory Tests Test 12/17/16 12/17/16 12/17/16 12/17/16 18:00 18:09 18:54 20:04 White Blood Count 21.2 TH/MM3 (4.0-11.0) Red Blood Count 4.23 MIL/MM3 (4.50-5.90) Hemoglobin 12.0 GM/DL (13.0-17.0) Hematocrit 37.2 % (39.0-51.0) Mean Corpuscular Volume 88.2 FL (80.0-100.0) Mean Corpuscular Hemoglobin 28.5 PG (27.0-34.0) Mean Corpuscular Hemoglobin 32.3 % Concent (32.0-36.0) Red Cell Distribution Width 18.0 % (11.6-17.2) Platelet Count 379 TH/MM3 (150-450) Mean Platelet Volume 9.3 FL (7.0-11.0) Neutrophils (%) (Auto) 81.6 % (16.0-70.0) Lymphocytes (%) (Auto) 5.9 % (9.0-44.0) Monocytes (%) (Auto) 11.6 % (0.0-8.0) Eosinophils (%) (Auto) 0.6 % (0.0-4.0) Basophils (%) (Auto) 0.3 % (0.0-2.0) Neutrophils # (Auto) 17.3 TH/MM3 (1.8-7.7) Lymphocytes # (Auto) 1.3 TH/MM3 (1.0-4.8) Monocytes # (Auto) 2.4 TH/MM3 (0-0.9) Eosinophils # (Auto) 0.1 TH/MM3 (0-0.4) Basophils # (Auto) 0.1 TH/MM3 (0-0.2) CBC Comment AUTO DIFF Differential Total Cells 100 Counted Neutrophils % (Manual) 82 % (16-70) Band Neutrophils % 3 % (0-6) Lymphocytes % 8 % (9-44) Monocytes % 6 % (0-8) Neutrophils # (Manual) 18.2 TH/MM3 (1.8-7.7) Myelocytes 1 % (0-0) Differential Comment FINAL DIFF MANUAL Platelet Estimate NORMAL (NORMAL) Platelet Morphology Comment NORMAL (NORMAL) Ovalocytes 1+ (NORMAL) Keratocytes OCC (NORMAL) Prothrombin Time 13.0 SEC (9.8-11.6) Prothromb Time International 1.2 RATIO Ratio Activated Partial 27.8 SEC Thromboplast Time (24.3-30.1) Sodium Level 140 MEQ/L (136-145) Potassium Level 4.5 MEQ/L (3.5-5.1) Chloride Level 103 MEQ/L (98-107) Carbon Dioxide Level 28.3 MEQ/L (21.0-32.0) Anion Gap 9 MEQ/L (5-15) Blood Urea Nitrogen 32 MG/DL (7-18) Creatinine 1.42 MG/DL (0.60-1.30) Estimat Glomerular Filtration 49 ML/MIN (>89) Rate Random Glucose 168 MG/DL (74-106) Calcium Level 9.1 MG/DL (8.5-10.1) Magnesium Level 2.5 MG/DL (1.5-2.5) Total Creatine Kinase 391 U/L 322 U/L (39-308) (39-308) Creatine Kinase MB 16.2 NG/ML 15.0 NG/ML (0.5-3.6) (0.5-3.6) Creatine Kinase MB % 4.1 % (0.0-4.0) 4.7 % (0.0-4.0) Troponin I 0.12 NG/ML 1.19 NG/ML (0.02-0.05) (0.02-0.05) B-Type Natriuretic Peptide 263 PG/ML (0-100) Lactic Acid Level 1.7 mmol/L (0.4-2.0) Blood Gas Puncture Site RT RADIAL Blood Gas Patient Temperature 98.6 Blood Gas HCO3 24 mmol/L (22-26) Blood Gas Base Excess -1.9 mmol/L (-2-2) Blood Gas Oxygen Saturation 98 % (90-100) Arterial Blood pH 7.30 (7.380-7.420) Arterial Blood Partial 50 mmHg (38-42) Pressure CO2 Arterial Blood Partial 579 mmHG Pressure O2 (61-120) Arterial Blood Oxygen Content 17.8 Vol % (12.0-20.0) Arterial Blood 0.3 % (0-4) Carboxyhemoglobin Arterial Blood Methemoglobin 1.0 % (0-2) Blood Gas Hemoglobin 11.7 G/DL (12.0-16.0) Oxygen Delivery Device VENTILATOR Blood Gas Ventilator Setting AC//500/+5PEEP Blood Gas Inspired Oxygen 100 % Test 12/18/16 12/18/16 12/19/16 12/20/16 00:15 02:00 03:07 03:13 Nasal Screen MRSA (PCR) MRSA NOT DETECTED (NOT DETECT) White Blood Count 12.6 TH/MM3 11.9 TH/MM3 13.5 TH/MM3 (4.0-11.0) (4.0-11.0) (4.0-11.0) Red Blood Count 3.10 MIL/MM3 3.20 MIL/MM3 3.36 MIL/MM3 (4.50-5.90) (4.50-5.90) (4.50-5.90) Hemoglobin 9.0 GM/DL 9.3 GM/DL 10.0 GM/DL (13.0-17.0) (13.0-17.0) (13.0-17.0) Hematocrit 27.0 % 27.5 % 29.2 % (39.0-51.0) (39.0-51.0) (39.0-51.0) Mean Corpuscular Volume 86.8 FL 86.1 FL 86.9 FL (80.0-100.0) (80.0-100.0) (80.0-100.0) Mean Corpuscular Hemoglobin 29.1 PG 29.2 PG 29.9 PG (27.0-34.0) (27.0-34.0) (27.0-34.0) Mean Corpuscular Hemoglobin 33.6 % 33.9 % 34.4 % Concent (32.0-36.0) (32.0-36.0) (32.0-36.0) Red Cell Distribution Width 17.8 % 17.8 % 18.4 % (11.6-17.2) (11.6-17.2) (11.6-17.2) Platelet Count 178 TH/MM3 170 TH/MM3 185 TH/MM3 (150-450) (150-450) (150-450) Mean Platelet Volume 9.0 FL 9.3 FL 9.6 FL (7.0-11.0) (7.0-11.0) (7.0-11.0) Neutrophils (%) (Auto) 95.2 % 91.7 % 94.8 % (16.0-70.0) (16.0-70.0) (16.0-70.0) Lymphocytes (%) (Auto) 1.6 % 2.5 % 1.7 % (9.0-44.0) (9.0-44.0) (9.0-44.0) Monocytes (%) (Auto) 3.2 % (0.0-8.0) 5.7 % (0.0-8.0) 3.4 % (0.0-8.0) Eosinophils (%) (Auto) 0.0 % (0.0-4.0) 0.0 % (0.0-4.0) 0.0 % (0.0-4.0) Basophils (%) (Auto) 0.0 % (0.0-2.0) 0.1 % (0.0-2.0) 0.1 % (0.0-2.0) Neutrophils # (Auto) 12.0 TH/MM3 10.9 TH/MM3 12.8 TH/MM3 (1.8-7.7) (1.8-7.7) (1.8-7.7) Lymphocytes # (Auto) 0.2 TH/MM3 0.3 TH/MM3 0.2 TH/MM3 (1.0-4.8) (1.0-4.8) (1.0-4.8) Monocytes # (Auto) 0.4 TH/MM3 0.7 TH/MM3 0.5 TH/MM3 (0-0.9) (0-0.9) (0-0.9) Eosinophils # (Auto) 0.0 TH/MM3 0.0 TH/MM3 0.0 TH/MM3 (0-0.4) (0-0.4) (0-0.4) Basophils # (Auto) 0.0 TH/MM3 0.0 TH/MM3 0.0 TH/MM3 (0-0.2) (0-0.2) (0-0.2) CBC Comment DIFF FINAL DIFF FINAL DIFF FINAL Differential Comment Sodium Level 141 MEQ/L 143 MEQ/L 143 MEQ/L (136-145) (136-145) (136-145) Potassium Level 4.2 MEQ/L 4.0 MEQ/L 4.2 MEQ/L (3.5-5.1) (3.5-5.1) (3.5-5.1) Chloride Level 108 MEQ/L 109 MEQ/L 110 MEQ/L (98-107) (98-107) (98-107) Carbon Dioxide Level 25.1 MEQ/L 27.0 MEQ/L 26.9 MEQ/L (21.0-32.0) (21.0-32.0) (21.0-32.0) Anion Gap 8 MEQ/L (5-15) 7 MEQ/L (5-15) 6 MEQ/L (5-15) Blood Urea Nitrogen 30 MG/DL (7-18) 25 MG/DL (7-18) 36 MG/DL (7-18) Creatinine 1.27 MG/DL 1.10 MG/DL 1.14 MG/DL (0.60-1.30) (0.60-1.30) (0.60-1.30) Estimat Glomerular Filtration 56 ML/MIN (>89) 66 ML/MIN (>89) 63 ML/MIN (>89) Rate Random Glucose 150 MG/DL 126 MG/DL 194 MG/DL (74-106) (74-106) (74-106) Calcium Level 8.0 MG/DL 8.1 MG/DL 8.2 MG/DL (8.5-10.1) (8.5-10.1) (8.5-10.1) Phosphorus Level 2.6 MG/DL (2.5-4.9) Magnesium Level 2.2 MG/DL (1.5-2.5) Total Bilirubin 0.4 MG/DL 0.3 MG/DL (0.2-1.0) (0.2-1.0) Aspartate Amino Transf 39 U/L (15-37) 27 U/L (15-37) (AST/SGOT) Alanine Aminotransferase 54 U/L (12-78) 51 U/L (12-78) (ALT/SGPT) Alkaline Phosphatase 71 U/L (45-117) 66 U/L (45-117) Troponin I 1.92 NG/ML (0.02-0.05) Total Protein 5.0 GM/DL 4.9 GM/DL (6.4-8.2) (6.4-8.2) Albumin 2.7 GM/DL 2.5 GM/DL (3.4-5.0) (3.4-5.0) Result Diagram: 12/20/1631212/20/16312 Microbiology Microbiology Date/Time Procedure Status Source Growth 12/17/16 18:05 Aerobic Blood Culture - Preliminary Resulted Blood Peripheral Gram Positive Cocci 12/17/16 18:05 Anaerobic Blood Culture - Final Resulted Staphylococcus Epidermidis 12/17/16 18:10 Aerobic Blood Culture - Preliminary Resulted Blood Peripheral NO GROWTH IN 3 DAYS 12/17/16 18:10 Anaerobic Blood Culture - Preliminary Resulted Staph Sp Coagulase Negative 12/19/16 15:45 Aerobic Blood Culture - Preliminary Resulted Blood Peripheral NO GROWTH IN 1 DAY 12/19/16 15:45 Anaerobic Blood Culture - Preliminary Resulted Blood Peripheral NO GROWTH IN 1 DAY 12/19/16 15:50 Aerobic Blood Culture - Preliminary Resulted Blood Peripheral NO GROWTH IN 1 DAY 12/19/16 15:50 Anaerobic Blood Culture - Preliminary Resulted Blood Peripheral NO GROWTH IN 1 DAY 12/19/16 16:10 Gram Stain - Final Resulted Sputum Endotracheal 12/19/16 16:10 Sputum Culture - Preliminary Resulted Sputum Endotracheal MODERATE GROWTH NORMAL RESPIRATORY FL... Imaging Last Impressions Chest X-Ray 12/20/16 0600 Signed Impressions: Service Date/Time: December 02:46 - CONCLUSION: 1. Cardiomegaly. No acute pulmonary disease. Chris Schumacher MD Procedures * Intubation/Mechanical ventilation . Assessment and Plan Disease Oriented Problem List: (1) Sepsis Comment: Blood growing out gram positive cocci . (2) Acute respiratory failure (3) COPD exacerbation (4) NSTEMI (non-ST elevated myocardial infarction) Comment: Elevated troponin and CK MB fraction on this admission . (5) Alcohol abuse (6) Tremor Comment: Reportedly worsening over the last year. Unclear if this has been worked up by a physician. . Symptom Scale: (1) Pain 0-10 Scale: Unable to quantify Comment: No significant pain syndromes prior to this hospitalization but did occasionally complain of back pain and minor arthritis pains. Current sources of discomfort might include prolonged bedbound status; restraints; Samaniego catheter; orogastric and orotracheal intubation's; vascular access lines; and SCDs.. . (2) Agitation 0-10 Scale: Unable to quantify Comment: Currently on EtOH withdrawal protocol. . (3) Dyspnea 0-10 Scale: Unable to quantify Comment: Patient's dyspnea was quite severe when he first arrived in the emergency department. Appears adequately managed now with intubation and mechanical ventilation and sedation. . Pertinent Non-Medical Issues Psychosocial: Spiritual: Legal: Ethical issues impacting care: Important Contacts * Pako Bunch (son / co-proxy): [phone] * Zaina Dillon (daughter / co-proxy ): [phone] * Ninfa Richardson (step-daughter): [phone] . Prognosis Mr. Bunch has lung disease that has been progressing over time. He is mostly oxygen dependent at this point. He can typically walk from car to store front but now needs an electric cart to get around. His recent "bounce-back" hospitalization raises concerns that it will be hard to keep the patient out of the hospital in the future. On this hospitalization he has appeared to have suffered a non-ST segment myocardial infarction and also appears to be septic. It is possible that the patient continues with alcohol abuse which would also adversely effect prognosis. Prognosis will likely be more accurate we see how the patient does when sepsis is treated and respiratory status stabilizes. If he becomes quite challenging to wean from the ventilator or shows evidence of heart failure from his recent myocardial infarction, long-term prognosis will not be favorable and he would be a good candidate for hospice care if his goals are primarily comfort oriented. . Code Status: Full Code (Patient will remain full code at least until daughter arrives unless patinet becomes capacitated and tells us otherwise. ) Plan * CODE STATUS: Full Code. Though patient reportedly wanted to complete a DNR document, this did not take place. He remains FULL CODE until his biological daughter arrives -expected to arrive on 12/20/16 --PM (driving down from [place]) and can see him and make decisions for him if the patient, himself does not become capacitated. * HEALTHCARE DECISION-MAKING:Mr Bunch is currently intubated and mechanically ventilated. He is requiring sedation to prevent severe agitation. At this time he is incapacitated to make his own health care decisions. There is a reasonable chance that he will regain capacity. As he is not legally at this time, health care decision making would fall to his two biological children. His daughter , Zaina, is driving down from [place] to be present for decision making. * GOALS OF CARE:The patient is unable to provide his own goals of medical treatment at this time. According to his stepdaughter, Brianna, he would not want to be on life support and would want a "do not resuscitate" order. As the patient has not written this down anywhere and since on a is not a legal decision-maker we will need to wait for the patient to become capacitated or for his biological children to make decisions regarding goals. Undergoing attempts at medical extubation at this time. Biological daughter Zaina to arrive to [facility] 12/20/16. Palliative care to meet with daughter tomorrow morning 12/21/16 for further clarifications of goals of care. * SYMPTOMS: == Dyspnea: Currently controlled with intubation/mechanical ventilation and sedation. Attempts at medical medical extubation undergoing. = = Pain: Sources of discomfort probably include intubations; restraints; Samaniego catheter; vascular access lines; and prolonged bedbound status. Had some chronic back pain . Orders are available for morphine and fentanyl. These appear adequate. No further recommendations at this time.== Agitation: Unclear if the agitation is delirium or perhaps evidence of alcohol withdrawal. Patient currently has orders for propofol and lorazepam. These appear adequate. No further recommendations at this time. * Case has been discussed with bedside RN. * Palliative care contact information has been provided to family. * Palliative care to continue to follow-up with this patient and family for further clarifications of goals of care as his clinical course continues to evolve. . Time Spent Total Floor Time (mins): 36 (Total time to include review of medical records, physical exam, telephone call to patient's daughter and case discussion with bedside RN.) >50% Counseling/Coord of Care: Yes Attestation To help prompt me to consider important information that might be impacting today's encounter and assessment, information from prior notes written by myself or my colleagues may have been "brought forward" into today's note. My signature on this note, however, is an attestation that I personally performed the exam, history, and/or decision-making noted today, and, unless otherwise indicated, the interactions with patient, family, and staff as well as the review of records all occurred today. I also attest that the listed assessment and stated plan reflect my best clinical judgment today based on the combination of historical information, prior notes, and today's exam/ interactions. When time spent is documented, it refers only to time spent today by the signer, or if indicated, combined time spent today by collaborating physician/nurse practitioner. Brianna Bloom December 20, 2016 16:51
[2016-12-20] MEDS: fentaNYL DRIP 250 ML IV SCH (20:36)
[2016-12-20] MEDS: AZITHROMYCIN INJ 500 MG in SODIUM CHLOR 0.9% 250 ML INJ 250 ML IV SCH (20:37)
[2016-12-20] MEDS: ATORVASTATIN 20 MG TAB PO SCH (20:37)
[2016-12-21] VITALS (19 sets, daily range): BP systolic 106–149; BP diastolic 59–73; PULSE 51–74; RESP 16–25; TEMP 98.3–99.3; O2SAT 95–98
[2016-12-21] MEDS: VANCOMYCIN 1,000 MG/NS 250 ML IV SCH ×4 (00:29→12:49)
[2016-12-21] MEDS: PIPERACIL-TAZO 4.5 GM PREMIX 100 ML IV SCH ×4 (03:57→20:30)
[2016-12-21] MEDS: CHLORHEXIDINE GLUCONATE 2 % 1 PACK (2 CLOTHS) TOP SCH (03:57)
[2016-12-21] MEDS: methylPREDNISolone SOD SUCC 40 MG/1 ML VIAL IV PUSH SCH ×3 (03:59→20:31)
[2016-12-21] MEDS: RESP: ALBUTEROL 2.5 MG/IPRATROPIUM 0.5 MG NEB (SCH) NEB ×4 (04:01→19:39)
[2016-12-21] MEDS: INSULIN ASPART SUPPLEMENTAL SCALE SQ SCH ×4 (05:58→23:36)
--- NOTE | 2016-12-21 08:07 | HHI.CCPN ---
Subjective Remarks/Hospital Course Patient is a 71 y/o M with PMHx of coronary artery disease with stent placement in 2013, CVA with no residual deficits, COPD on 2 L oxygen 24 hour a day/ asthma , GERD, and Atrial fibrillation s/p cardiac ablation x2. He was recently discharged on 12/15 after hospitalization for a COPD exacerbation and R middle lobe PNA. He was treated with azithromycin for 5 days and ceftriaxone for 3 days with steroids. He was discharged home after a 3 day hospital stay. He then presented to the ED on 12/17 in respiratory failure and was intubated. 12/18: No acute events overnight. Patient remains intubated and sedated. Step- daughter at bedside, Ninfa Richardson, who confirms patient's home oxygen requirement and constant respiratory issues. She states that he has not completed his DNR paperwork, but that it was his wish to avoid life saving measures. However, she is not his POA as he has children. She states that she will reach out to them today for input on medical decision making going forward. 12/19: Patient remains intubated with no acute events overnight. Patient afebrile with VSS. Patient aggressive while on propofol with attempts to self extubate; fentanyl infusion added per protocol to assist with agitation. Palliative consulted to assist with goals of care and guidance regarding decision maker. 12/20: No acute events overnight. Patient remains intubated and on tube feeds. He has been afebrile with bradycardia and hypotension overnight. Patient with alcohol history and placed on CIWA protocol yesterday due to tremors, however per family does have history of tremor at baseline. 12/20: Afebrile. The patient remain on CPAP trials for approximately one hour yesterday. Plan to resume CPAP trials today. Awaiting family to arrive to discuss and clarify goals of care. The patient is being followed by the continues on 3 antibiotics. Chest x-ray pending this a.m.. Objective Vital Signs Date Time Temp Pulse Resp B/P Pulse Ox O2 Delivery O2 Flow Rate FiO2 12/21/16 07:30 96 30 12/21/16 06:00 55 12/21/16 04:00 98.3 18 106/69 12/17/16 23:15 Ventilator 12/17/16 18:15 2 Intake and Output 12/20/16 12/20/16 12/21/16 08:00 16:00 00:00 Intake Total 1290 ml 1437 ml 1036 ml Output Total 600 ml 375 ml 500 ml Balance 690 ml 1062 ml 536 ml Result Diagram: 12/20/16 0313 12/20/163 Imaging Last 24 hours Impressions Chest X-Ray 12/17/16 5292 Signed Impressions: Service Date/Time: Saturday, December 17, 2016 17:54 - CONCLUSION: Satisfactory ET tube positioning. Earl Zapata MD Objective Remarks GENERAL: Intubated elderly man who is arousable, following commands on light sedation SKIN: Warm and dry. HEAD: Normocephalic. EYES: No scleral icterus. No injection or drainage. NECK: Supple, trachea midline. No JVD or lymphadenopathy. CARDIOVASCULAR: Regular rate and rhythm without murmurs, gallops, or rubs. RESPIRATORY: Orally intubated on mechanical ventilation, Breath sounds equal bilaterally with mild wheezing and scattered rhonchi. GASTROINTESTINAL: Abdomen soft, non-tender, nondistended with +BS. MUSCULOSKELETAL: No cyanosis, or edema. NEURO: Patient off sedation. Able to answer yes/no questions with head nodding, following commands. Appears to attempt to talk despite ET tube. Urinary Catheter: Yes Cortes insert reason: Measure Accurate Output A/P Problem List: (1) COPD exacerbation ICD Code: J44.1 Status: Acute (2) PNA (pneumonia) ICD Code: J18.9 Status: Acute (3) A-fib ICD Code: I48.91 Status: Chronic (4) NSTEMI (non-ST elevated myocardial infarction) ICD Code: I21.4 Status: Acute Assessment and Plan Neuro: - Intubated and Sedated with propofol and fentanyl. - Depression - Questionable alcohol abuse - Baseline tremors per healthcare administration internship - Team will attempt to ween off all sedation for possible CPAP trial with extubation this afternoon pending clinical course - [place] [facility] [place] - Held 12/19 for Zyvox ABX treatment, however patient was started on Vancomycin in order for him to continue with his Zoloft(12/20). - We will add thiamine/MVI, Ativan when necessary with CIID protocol. Patient has tremors at baseline per healthcare administration internship. Respiratory: - Acute respiratory failure - COPD exacerbation - Possible ongoing pneumonia (HCAP) - Intubated and sedated, attempt CPAP/Extubation this afternoon pending clinical course - DuoNeb scheduled and when necessary - BC x2: Staph epidermidis with multiple resistances x2; prior cultures all negative - Repeat CXR 12/20: Cardiomegaly with no acute disease. - Repeat BC 12/20: NTD - Zosyn and Azithromycin (12/17- ) - Vancomycin 15mg/kg ordered (12/18- ), pharmacy consulted. Zyvox ordered, however is contraindicated as patient is on Zoloft - IV Solumedrol Q8H -Ventilator bundle Cardiac: - Coronary artery disease - Stent placement in 2014 - Atrial fibrillation ablation x2 - NSTEMI - Troponin 0.12, 1.19, 1.92 with CKMB up to 4.7. - EKG: Sinus tachycardia with L axis deviation. - Continue Amiodarone, Atorvastatin, ASA, and Xarelto - Cardiology following GI: - GERD - Omeprazole - Tube feeds per protocol Renal: - KADI on admission - KADI resolved with fluid resuscitation - Monitor I/Os, cortes placed - NS at 30cc/hr Endocrine: - Tube feeds held for possible CPAP/extubation this afternoon - SSI for glycemic control as needed. - Monitor BG [place] [facility] [place] Heme/ID: - Leukocytosis with left shift s/p steroids - BC x2: Gram Positive cocci in clusters x2; prior cultures all negative - Repeat BC 12/20: NTD - Zosyn and Azithromycin (12/17- ) - Vancomycin (12/18- ) - Continue to monitor CBC, transfuse if necessary - Infectious Disease consulted DVT - On Xarelto, MO/SCDs GI prophylaxis - Omeprazole Palliative Care consulted to assist with goals of care. Patient's daughter is is scheduled to meet with palliative care today to discuss goals of care. Discussed with GATE MORTISER OPERATOR at bedside. This patient remains critically ill with one or more organ systems which are or may become a threat to life. I have spent in excess of 37 minutes discontinuously in the care and management of this patient. This time is exclusive of procedures, and includes, but is not limited to, evaluation of the patient, review of the medical record, discussions with family, consultants, nursing staff, or respiratory therapy, and documentation in the medical record. Physician Alexus Velez Problem Qualifiers (1) PNA (pneumonia): Qualified Code: J18.9 - Pneumonia due to infectious organism, unspecified laterality, unspecified part of lung Alexus Velez MD December 21, 2016 08:07
[2016-12-21] MEDS ORDERED: POTASSIUM PHOSPHATE MONOBASIC 500 MG TAB PO/TUBE PRN (08:15)
[2016-12-21] MEDS ORDERED: MAGNESIUM SULFATE INJ 4 GM in SODIUM CHLORIDE 0.9% INJ 92 ML IV PRN (08:15)
[2016-12-21] MEDS ORDERED: POTASSIUM CHLOR 40 MEQ PREMIX 100 ML IV PRN ×2 (08:15)
[2016-12-21] MEDS ORDERED: SODIUM PHOSPHATE INJ 30 MMOL in SODIUM CHLOR 0.9% 250 ML INJ 240 ML IV PRN (08:15)
[2016-12-21] MEDS ORDERED: MAGNESIUM OXIDE 400 MG TAB PO PRN (08:15)
[2016-12-21] MEDS ORDERED: MAGNESIUM SULFATE INJ 2 GM in SODIUM CHLORIDE 0.9% INJ 96 ML IV PRN (08:15)
[2016-12-21] MEDS ORDERED: POTASSIUM CHLOR 20 MEQ PREMIX 100 ML IV PRN ×2 (08:15)
[2016-12-21] MEDS ORDERED: POTASSIUM PHOSPHATE MONOBASIC 500 MG TAB PO PRN (08:15)
[2016-12-21] MEDS ORDERED: POTASSIUM CHLORIDE 25 MEQ EFFERVESCENT TAB PO PRN (08:15)
[2016-12-21] MEDS: BENEPROTEIN POWDER 1 PACK G-TUBE SCH ×3 (09:00→18:00)
[2016-12-21] MEDS: PANTOPRAZOLE SOD 40 MG DELAYED RELEASE TAB PO SCH (09:08)
[2016-12-21] MEDS: SERTRALINE HCL 50 MG TAB PO SCH (09:08)
[2016-12-21] MEDS: SODIUM CHLORIDE 0.9% FLUSH 10 ML FLUSH SCH ×2 (09:08→20:30)
[2016-12-21] MEDS: RIVAROXABAN 20 MG TAB PO SCH (09:08)
[2016-12-21] MEDS: AMIODARONE 200 MG TAB PO SCH (09:08)
[2016-12-21] MEDS: DOCUSATE SODIUM 100 MG/10 ML UDC G-TUBE SCH ×2 (09:08→20:30)
[2016-12-21] MEDS: THIAMINE HCL 100 MG TAB PO SCH (09:08)
[2016-12-21] MEDS: ARTIFICIAL TEARS OPTH SOLN 15 ML BTL EACH EYE SCH ×3 (09:08→18:24)
[2016-12-21] MEDS: ASPIRIN EC 81 MG TABEC PO SCH (09:08)
[2016-12-21] MEDS: MULTIVITAMINS/MINERALS THERAPEUTIC TAB PO SCH (09:09)
[2016-12-21] MEDS: FOLIC ACID 1 MG TAB PO SCH (09:09)
--- NOTE | 2016-12-21 09:58 | RADRPT ---
EXAM DATE/TIME: 12/21/2016 08:05 [facility] COMPARISON: CHEST SINGLE AP, December 20, 2016, 2:46. INDICATIONS : Respiratory failure MEDICAL HISTORY : None. SURGICAL HISTORY : Carpal tunnel syndrome. ENCOUNTER: Subsequent ACUITY: 4 - 6 days PAIN SCORE: Non-responsive. LOCATION: Bilateral chest FINDINGS: Rotated and underinflated AP view of the chest demonstrates a normal-sized cardiac silhouette. Endotr acheal tube is present and measures approximately 2.6 cm and the linda and NG tube courses beyond th e GE junction. Multiple EKG lines overlie the patient. Left lung base is not well-visualized. There i s likely atelectasis at the bases. No pneumothorax is seen. Multiple lines overlie the patient. CONCLUSION: Examination is rotated and underinflated and left lung base is less than optimally visualized. There is likely atelectasis at the lung bases but otherwise no acute finding is appreciated. Earl Bunch MD on December 21, 2016 at 9:55 Board Certified Radiologist. This report was verified electronically.
--- NOTE | 2016-12-21 10:56 | HHI.HCPN ---
Reason for visit a. To assist with evaluation and management of symptoms including: dyspnea; agitation; pain b. To assist medical decision maker(s) with: better understanding of current medical conditions; weighing benefits/burdens of medical treatment options; making medical treatment decisions. . (Brianna Bloom) Subjective/Interval History Patient remains in ICU. Intubated on mechanical ventilation. Diprivan and fentanyl off at this time. Ongoing CPAP trials at this time, patient with periods of apnea. Patient awake and following some simple commands such as "squeeze my hand". Nodding head to yes no questions. Denies pain or discomfort at this time. Checks x-ray today showing likely atelectasis at the lung base. Patient remains a febrile, stable hemodynamically. Daughter Zaina Dillon at bedside. She arrived yesterday from [place]. Medical update provided. Goal of treatment is to allow time for clinical improvement/ medical extubation. Daughter tells me that she does not feel comfortable making any medical decisions at this time as she has not been in contact with her father for the past 4 years. Daughter wishing for a patient involvement in medical decision-making when he is more alert. Discussed CODE STATUS with daughter, patient is to remain full code until he is able to participate in medical decision-making. . Family/friend interactions See interval note. . (Brianna Bloom) Advance Directives Living Will: Never completed Health Care Surrogate: Never completed Durable Power of Peg Driver: Never completed (Brianna Bloom) Advance Directive Specifics Date completed: Advance directives were never completed. . Health Care Surrogate(s): No written designation of health care surrogate. . Documented care wishes: No written documentation of health care goals/preferences. . (Brianna Bloom) Objective Vital Signs Date Time Temp Pulse Resp B/P Pulse Ox O2 Delivery O2 Flow Rate FiO2 12/21/16 07:30 96 30 12/21/16 06:00 55 12/21/16 04:01 98 30 12/21/16 04:00 59 12/21/16 04:00 30 12/21/16 04:00 98.3 59 18 106/69 96 12/21/16 02:00 57 12/21/16 01:30 97 30 12/21/16 00:00 30 12/21/16 00:00 99.0 58 18 111/64 97 12/21/16 00:00 58 12/20/16 22:00 54 12/20/16 21:40 96 30 12/20/16 20:00 98.2 61 18 97/59 96 12/20/16 20:00 30 12/20/16 20:00 76 12/20/16 19:36 98 30 12/20/16 18:00 66 12/20/16 16:00 30 12/20/16 16:00 97 30 12/20/16 16:00 30 12/20/16 16:00 76 12/20/16 16:00 100.0 76 22 147/81 98 12/20/16 15:32 98 40 12/20/16 14:00 69 12/20/16 13:34 96 40 12/20/16 12:00 58 12/20/16 12:00 30 12/20/16 12:00 99.3 60 19 91/50 95 Intake & Output 12/21/16 12/21/16 07:00 19:00 Intake Total 2400 ml Output Total 1150 ml Balance 1250 ml IV Total 1609 ml Tube Feeding 731 ml Other 60 ml Output Urine Total 1150 ml # Bowel Movements 0 Physical Exam CONSTITUTIONAL/GENERAL: Adequately nourished; intubated; mechanically ventilated. TUBES/LINES/DRAINS: Orotracheal tube; orogastric tube; Samaniego catheter; SCDs; soft wrist restraints; peripheral IV SKIN: No jaundice, rashes, or lesions. Ecchymoses on upper extremities. No wounds seen anteriorly. Skin temperature appropriate. Not diaphoretic. HEAD: Atraumatic. Normocephalic. EYES: Pupils equal and round and reactive. No scleral icterus. No injection or drainage. ENT: Appears normal hearing. Nose without bleeding or purulent drainage. Difficult to assess oropharynx and throat due to intubations. NECK: Trachea midline. Supple. CARDIOVASCULAR: Regular rate and rhythm without murmurs, gallops, or rubs. No JVD. Peripheral pulses symmetric. RESPIRATORY/CHEST: Symmetric, unlabored respirations. Diminished breath sounds bilaterally. Breath sounds equal bilaterally. No wheezes, rales, or rhonchi. GASTROINTESTINAL: Abdomen soft, non-tender, nondistended. No guarding. Bowel sounds present. GENITOURINARY: Without palpable bladder distension. Samaniego catheter in place. MUSCULOSKELETAL: Extremities without clubbing, cyanosis. Edema to bilateral upper extremities. NEUROLOGICAL: Sleepy. Following some simple commands. Nodding head to yes no questions. PSYCHIATRIC: Appears comfortable. No anxiety noted. . (Brianna Bloom) Diagnostic Tests Laboratory Laboratory Tests Test 12/19/16 12/20/16 03:07 03:13 White Blood Count 11.9 TH/MM3 13.5 TH/MM3 (4.0-11.0) (4.0-11.0) Red Blood Count 3.20 MIL/MM3 3.36 MIL/MM3 (4.50-5.90) (4.50-5.90) Hemoglobin 9.3 GM/DL 10.0 GM/DL (13.0-17.0) (13.0-17.0) Hematocrit 27.5 % 29.2 % (39.0-51.0) (39.0-51.0) Mean Corpuscular Volume 86.1 FL 86.9 FL (80.0-100.0) (80.0-100.0) Mean Corpuscular Hemoglobin 29.2 PG 29.9 PG (27.0-34.0) (27.0-34.0) Mean Corpuscular Hemoglobin 33.9 % 34.4 % Concent (32.0-36.0) (32.0-36.0) Red Cell Distribution Width 17.8 % 18.4 % (11.6-17.2) (11.6-17.2) Platelet Count 170 TH/MM3 185 TH/MM3 (150-450) (150-450) Mean Platelet Volume 9.3 FL 9.6 FL (7.0-11.0) (7.0-11.0) Neutrophils (%) (Auto) 91.7 % 94.8 % (16.0-70.0) (16.0-70.0) Lymphocytes (%) (Auto) 2.5 % 1.7 % (9.0-44.0) (9.0-44.0) Monocytes (%) (Auto) 5.7 % (0.0-8.0) 3.4 % (0.0-8.0) Eosinophils (%) (Auto) 0.0 % (0.0-4.0) 0.0 % (0.0-4.0) Basophils (%) (Auto) 0.1 % (0.0-2.0) 0.1 % (0.0-2.0) Neutrophils # (Auto) 10.9 TH/MM3 12.8 TH/MM3 (1.8-7.7) (1.8-7.7) Lymphocytes # (Auto) 0.3 TH/MM3 0.2 TH/MM3 (1.0-4.8) (1.0-4.8) Monocytes # (Auto) 0.7 TH/MM3 0.5 TH/MM3 (0-0.9) (0-0.9) Eosinophils # (Auto) 0.0 TH/MM3 0.0 TH/MM3 (0-0.4) (0-0.4) Basophils # (Auto) 0.0 TH/MM3 0.0 TH/MM3 (0-0.2) (0-0.2) CBC Comment DIFF FINAL DIFF FINAL Differential Comment Sodium Level 143 MEQ/L 143 MEQ/L (136-145) (136-145) Potassium Level 4.0 MEQ/L 4.2 MEQ/L (3.5-5.1) (3.5-5.1) Chloride Level 109 MEQ/L 110 MEQ/L (98-107) (98-107) Carbon Dioxide Level 27.0 MEQ/L 26.9 MEQ/L (21.0-32.0) (21.0-32.0) Anion Gap 7 MEQ/L (5-15) 6 MEQ/L (5-15) Blood Urea Nitrogen 25 MG/DL (7-18) 36 MG/DL (7-18) Creatinine 1.10 MG/DL 1.14 MG/DL (0.60-1.30) (0.60-1.30) Estimat Glomerular Filtration 66 ML/MIN (>89) 63 ML/MIN (>89) Rate Random Glucose 126 MG/DL 194 MG/DL (74-106) (74-106) Calcium Level 8.1 MG/DL 8.2 MG/DL (8.5-10.1) (8.5-10.1) Total Bilirubin 0.3 MG/DL (0.2-1.0) Aspartate Amino Transf 27 U/L (15-37) (AST/SGOT) Alanine Aminotransferase 51 U/L (12-78) (ALT/SGPT) Alkaline Phosphatase 66 U/L (45-117) Total Protein 4.9 GM/DL (6.4-8.2) Albumin 2.5 GM/DL (3.4-5.0) (Brianna Bloom) Result Diagram: 12/20/163 12/20/16312 Microbiology Microbiology Date/Time Procedure Status Source Growth 12/19/16 15:45 Aerobic Blood Culture - Preliminary Resulted Blood Peripheral NO GROWTH IN 1 DAY 12/19/16 15:45 Anaerobic Blood Culture - Preliminary Resulted Blood Peripheral NO GROWTH IN 1 DAY 12/19/16 15:50 Aerobic Blood Culture - Preliminary Resulted Blood Peripheral NO GROWTH IN 1 DAY 12/19/16 15:50 Anaerobic Blood Culture - Preliminary Resulted Blood Peripheral NO GROWTH IN 1 DAY 12/19/16 16:10 Gram Stain - Final Complete Sputum Endotracheal 12/19/16 16:10 Sputum Culture - Final Complete Sputum Endotracheal MODERATE GROWTH NORMAL RESPIRATORY KB 12/21/16 05:02 Aerobic Blood Culture Received Blood Peripheral Pending 12/21/16 05:02 Anaerobic Blood Culture Received Blood Peripheral Pending 12/21/16 05:07 Aerobic Blood Culture Received Blood Peripheral Pending 12/21/16 05:07 Anaerobic Blood Culture Received Blood Peripheral Pending Imaging Last Impressions Chest X-Ray 12/21/16 0000 Signed Impressions: Service Date/Time: Wednesday, December 21, 2016 08:05 - CONCLUSION: Examination is rotated and underinflated and left lung base is less than optimally visualized. There is likely atelectasis at the lung bases but otherwise no acute finding is appreciated. Earl Bunch MD Procedures * Intubation/Mechanical ventilation . (Brianna Bloom) Assessment and Plan Disease Oriented Problem List: (1) Sepsis Comment: Blood growing out gram positive cocci . (2) Acute respiratory failure (3) COPD exacerbation (4) NSTEMI (non-ST elevated myocardial infarction) Comment: Elevated troponin and CK MB fraction on this admission . (5) Alcohol abuse (6) Tremor Comment: Reportedly worsening over the last year. Unclear if this has been worked up by a physician. . Symptom Scale: (1) Pain 0-10 Scale: Unable to quantify Comment: No significant pain syndromes prior to this hospitalization but did occasionally complain of back pain and minor arthritis pains. Current sources of discomfort might include prolonged bedbound status; restraints; Samaniego catheter; orogastric and orotracheal intubation's; vascular access lines; and SCDs.. . (2) Agitation 0-10 Scale: Unable to quantify Comment: Currently on EtOH withdrawal protocol. . (3) Dyspnea 0-10 Scale: Unable to quantify Comment: Patient's dyspnea was quite severe when he first arrived in the emergency department. Appears adequately managed now with intubation and mechanical ventilation and sedation. . Pertinent Non-Medical Issues Psychosocial: Spiritual: Legal: Ethical issues impacting care: Important Contacts * Pako Bunch (son / co-proxy): [phone] * Zaina Dillon (daughter / co-proxy ): [phone] * Ninfa Dylan (step-daughter): [phone] . Prognosis Mr. Bunch has lung disease that has been progressing over time. He is mostly oxygen dependent at this point. He can typically walk from car to store front but now needs an electric cart to get around. His recent "bounce-back" hospitalization raises concerns that it will be hard to keep the patient out of the hospital in the future. On this hospitalization he has appeared to have suffered a non-ST segment myocardial infarction and also appears to be septic. It is possible that the patient continues with alcohol abuse which would also adversely effect prognosis. Prognosis will likely be more accurate we see how the patient does when sepsis is treated and respiratory status stabilizes. If he becomes quite challenging to wean from the ventilator or shows evidence of heart failure from his recent myocardial infarction, long-term prognosis will not be favorable and he would be a good candidate for hospice care if his goals are primarily comfort oriented. . Code Status: Full Code (Patient will remain full code at least until daughter arrives unless patinet becomes capacitated and tells us otherwise. ) Plan * CODE STATUS: Full Code. Discussed CODE STATUS with daughter, patient is to remain full code until he is able to participate in medical decision-making. * HEALTHCARE DECISION-MAKING:Mr Bunch is currently intubated and mechanically ventilated. He is requiring sedation to prevent severe agitation. At this time he is incapacitated to make his own health care decisions. There is a reasonable chance that he will regain capacity. As he is not legally at this time, health care decision making would fall to his two biological children. His daughter , Zaina, is driving down from [place] to be present for decision making. * GOALS OF CARE: As per daughter Zaina Dillon, Goal of treatment is to allow a few additional days for clinical improvement/medical extubation. Currently on day #4 of intubation/mechanical ventilation. Daughter tells me that she does not feel comfortable making any medical decisions at this time as she has not been in contact with her father for the past 4 years and she is unaware of his wishes relating to this matter. Daughter wishing for patient involvement in medical decision-making when he is more alert. The patient is unable to provide his own goals of medical treatment at this time. According to his stepdaughter, Brianna, he would not want to be on life support and would want a "do not resuscitate" order. As the patient has not written this down anywhere and since on a is not a legal decision-maker we will need to wait for the patient to become capacitated or for his biological children to make decisions regarding goals. Undergoing attempts at medical extubation at this time. * SYMPTOMS: == Dyspnea: Currently controlled with intubation/mechanical ventilation and sedation. Attempts at medical medical extubation undergoing. = = Pain: Sources of discomfort probably include intubations; restraints; Samaniego catheter; vascular access lines; and prolonged bedbound status. Had some chronic back pain . Orders are available for morphine and fentanyl. These appear adequate. No further recommendations at this time.== Agitation: Unclear if the agitation is delirium or perhaps evidence of alcohol withdrawal. Patient currently has orders for propofol and lorazepam. These appear adequate. No further recommendations at this time. * Case has been discussed with bedside RN. * Palliative care contact information has been provided to family. * Palliative care to continue to follow-up with this patient and family for further clarifications of goals of care as his clinical course continues to evolve. . (Brianna Bloom) Time Spent Total Floor Time (mins): 36 (Total time to include review of medical records, physical exam, bedside conversation with patient's daughter.) >50% Counseling/Coord of Care: Yes (Brianna Bloom) Attestation To help prompt me to consider important information that might be impacting today's encounter and assessment, information from prior notes written by myself or my colleagues may have been "brought forward" into today's note. My signature on this note, however, is an attestation that I personally performed the exam, history, and/or decision-making noted today, and, unless otherwise indicated, the interactions with patient, family, and staff as well as the review of records all occurred today. I also attest that the listed assessment and stated plan reflect my best clinical judgment today based on the combination of historical information, prior notes, and today's exam/ interactions. When time spent is documented, it refers only to time spent today by the signer, or if indicated, combined time spent today by collaborating physician/nurse practitioner. (Brianna Bloom) Collaborating MD Comments . Chart reviewed. Cased discussed with palliative care DIRECTOR OF SALES MARKETING. Above DIRECTOR OF SALES MARKETING note reviewed and I concur. . (Aden Hardy MD) Brianna Bloom December 21, 2016 10:56 Aden Hardy MD January 14, 2017 15:37
[2016-12-21] MEDS ORDERED: PHARMACY ORDERED LAB ONE (11:45)
[2016-12-21 11:58] LABS: HEMATOCRIT 31.6 % (39.0-51.0); MEAN CELL VOLUME 87.7 FL (80.0-100.0); MEAN CORPUSCULAR HEMOGLOBIN 27.6 PG (27.0-34.0); MEAN CORPUSCULAR HGB CONC 31.5 % (32.0-36.0); PLATELET COUNT 180 TH/MM3 (150-450); RED CELL DISTRIBUTION WIDTH 17.9 % (11.6-17.2); REVIEW FLAG FINAL; WHITE BLOOD COUNT 14.3 TH/MM3 (4.0-11.0)
[2016-12-21 12:08] LABS: BICARBONATE 30.1 MEQ/L (21.0-32.0); MAGNESIUM 2.6 MG/DL (1.5-2.5); POTASSIUM 4.6 MEQ/L (3.5-5.1)
[2016-12-21] MEDS: PROPOFOL 1000 MG/100 ML INJ 100 ML IV SCH (13:51)
[2016-12-21 14:10] LABS: VANCOMYCIN TROUGH 9.3 MCG/ML (5.0-10.0)
[2016-12-21] MEDS: SODIUM CHLOR 0.9% 1000 ML INJ 1,000 ML IV SCH ×2 (18:42→20:31)
[2016-12-21] MEDS: AZITHROMYCIN INJ 500 MG in SODIUM CHLOR 0.9% 250 ML INJ 250 ML IV SCH (20:29)
[2016-12-21] MEDS: ATORVASTATIN 20 MG TAB PO SCH (20:30)
[2016-12-21] MEDS: LORazepam 2 MG/ML VIAL IV PRN (20:34)
[2016-12-21] MEDS: VANCOMYCIN 1,500 MG/NS 500 ML IV SCH ×2 (23:36)
[2016-12-22] VITALS (20 sets, daily range): BP systolic 104–154; BP diastolic 61–85; PULSE 44–73; RESP 14–24; TEMP 98.6–99; O2SAT 95–98
[2016-12-22] MEDS: RESP: ALBUTEROL 2.5 MG/IPRATROPIUM 0.5 MG NEB (PRN) INH ×3 (03:43→14:35)
[2016-12-22] MEDS: CHLORHEXIDINE GLUCONATE 2 % 1 PACK (2 CLOTHS) TOP SCH (04:00)
[2016-12-22] MEDS: methylPREDNISolone SOD SUCC 40 MG/1 ML VIAL IV PUSH SCH ×3 (05:25→20:34)
[2016-12-22] MEDS: SODIUM CHLOR 0.9% 1000 ML INJ 1,000 ML IV SCH ×2 (05:26→20:35)
[2016-12-22] MEDS: PIPERACIL-TAZO 4.5 GM PREMIX 100 ML IV SCH ×4 (05:26→20:34)
[2016-12-22] MEDS: INSULIN ASPART SUPPLEMENTAL SCALE SQ SCH ×3 (05:26→17:43)
--- NOTE | 2016-12-22 05:53 | RADRPT ---
EXAM DATE/TIME: 12/22/2016 02:57 [facility] COMPARISON: CHEST SINGLE AP, December 21, 2016, 8:05. INDICATIONS : Shortness of breath, possible pulmonary disease. MEDICAL HISTORY : None. SURGICAL HISTORY : carpal tunnel syndrome ENCOUNTER: Subsequent ACUITY: 4 - 6 days PAIN SCORE: Non-responsive. LOCATION: Bilateral chest FINDINGS: A single view of the chest demonstrates left basilar density. Heart and the upper limits of normal in size. Endotracheal tube, nasogastric tube are unchanged. Osseous structures are intact. CONCLUSION: Stable left basilar density. Jerald Figueroa MD on December 22, 2016 at 5:49 Board Certified Radiologist. This report was verified electronically.
[2016-12-22] MEDS: PROPOFOL 1000 MG/100 ML INJ 100 ML IV SCH (06:02)
[2016-12-22 06:04] LABS: HEMATOCRIT 31.2 % (39.0-51.0); MEAN CELL VOLUME 87.4 FL (80.0-100.0); MEAN CORPUSCULAR HEMOGLOBIN 29.1 PG (27.0-34.0); MEAN CORPUSCULAR HGB CONC 33.3 % (32.0-36.0); PLATELET COUNT 175 TH/MM3 (150-450); RED BLOOD COUNT 3.58 MIL/MM3 (4.50-5.90); RED CELL DISTRIBUTION WIDTH 18.3 % (11.6-17.2); REVIEW FLAG FINAL; WHITE BLOOD COUNT 14.5 TH/MM3 (4.0-11.0)
[2016-12-22 07:05] LABS: BICARBONATE 28.9 MEQ/L (21.0-32.0); MAGNESIUM 2.6 MG/DL (1.5-2.5); POTASSIUM 4.5 MEQ/L (3.5-5.1)
[2016-12-22] MEDS: BENEPROTEIN POWDER 1 PACK G-TUBE SCH ×3 (09:00→17:43)
[2016-12-22] MEDS: DOCUSATE SODIUM 100 MG/10 ML UDC G-TUBE SCH ×2 (10:18→20:34)
[2016-12-22] MEDS: MULTIVITAMINS/MINERALS THERAPEUTIC TAB PO SCH (10:18)
[2016-12-22] MEDS: ASPIRIN EC 81 MG TABEC PO SCH (10:18)
[2016-12-22] MEDS: RIVAROXABAN 20 MG TAB PO SCH (10:19)
[2016-12-22] MEDS: PANTOPRAZOLE SOD 40 MG DELAYED RELEASE TAB PO SCH (10:19)
[2016-12-22] MEDS: SERTRALINE HCL 50 MG TAB PO SCH (10:19)
[2016-12-22] MEDS: THIAMINE HCL 100 MG TAB PO SCH (10:19)
[2016-12-22] MEDS: FOLIC ACID 1 MG TAB PO SCH (10:19)
[2016-12-22] MEDS: AMIODARONE 200 MG TAB PO SCH (10:19)
[2016-12-22] MEDS: ARTIFICIAL TEARS OPTH SOLN 15 ML BTL EACH EYE SCH ×3 (10:20→17:43)
[2016-12-22] MEDS: SODIUM CHLORIDE 0.9% FLUSH 10 ML FLUSH SCH ×2 (10:20→20:34)
[2016-12-22] MEDS: VANCOMYCIN 1,500 MG/NS 500 ML IV SCH ×4 (12:11→23:55)
--- NOTE | 2016-12-22 13:39 | HHI.CCPN ---
Subjective Remarks/Hospital Course Patient is a 71 y/o M with PMHx of coronary artery disease with stent placement in 2013, CVA with no residual deficits, COPD on 2 L oxygen 24 hour a day/ asthma , GERD, and Atrial fibrillation s/p cardiac ablation x2. He was recently discharged on 12/15 after hospitalization for a COPD exacerbation and R middle lobe PNA. He was treated with azithromycin for 5 days and ceftriaxone for 3 days with steroids. He was discharged home after a 3 day hospital stay. He then presented to the ED on 12/17 in respiratory failure and was intubated. 12/18: No acute events overnight. Patient remains intubated and sedated. Step- daughter at bedside, Ninfa Richardson, who confirms patient's home oxygen requirement and constant respiratory issues. She states that he has not completed his DNR paperwork, but that it was his wish to avoid life saving measures. However, she is not his POA as he has children. She states that she will reach out to them today for input on medical decision making going forward. 12/19: Patient remains intubated with no acute events overnight. Patient afebrile with VSS. Patient aggressive while on propofol with attempts to self extubate; fentanyl infusion added per protocol to assist with agitation. Palliative consulted to assist with goals of care and guidance regarding decision maker. 12/20: No acute events overnight. Patient remains intubated and on tube feeds. He has been afebrile with bradycardia and hypotension overnight. Patient with alcohol history and placed on CIWA protocol yesterday due to tremors, however per family does have history of tremor at baseline. 12/21: Afebrile. The patient remain on CPAP trials for approximately one hour yesterday. Plan to resume CPAP trials today. Awaiting family to arrive to discuss and clarify goals of care. The patient is being followed by the continues on 3 antibiotics. Chest x-ray pending this a.m.. 12/22: Tmax 98.9. The patient has been maintained on CPAP since 4:30 AM. Plan for SBT parameters, possible extubation this afternoon. Persistent leukocytosis noted ID following. Objective Vital Signs Date Time Temp Pulse Resp B/P Pulse Ox O2 Delivery O2 Flow Rate FiO2 12/22/16 11:34 98 30 12/22/16 10:00 69 12/22/16 08:00 98.6 18 147/73 Intake and Output 12/21/16 12/21/16 12/22/16 08:00 16:00 00:00 Intake Total 1364 ml 1260 ml 1481 ml Output Total 650 ml 625 ml 850 ml Balance 714 ml 635 ml 631 ml Result Diagram: 12/22/16 0359 12/22/16 0359 Other Results Microbiology Date/Time Procedure Status Source Growth 12/19/16 16:10 Gram Stain - Final Complete Sputum Endotracheal 12/19/16 16:10 Sputum Culture - Final Complete Sputum Endotracheal MODERATE GROWTH NORMAL RESPIRATORY KB Imaging Last 24 hours Impressions Chest X-Ray 12/17/16 6403 Signed Impressions: Service Date/Time: Saturday, December 17, 2016 17:54 - CONCLUSION: Satisfactory ET tube positioning. Earl Zapata MD Objective Remarks GENERAL: Intubated elderly gentleman, following commands on light sedation SKIN: Warm and dry. HEAD: Normocephalic. EYES: No scleral icterus. No injection or drainage. NECK: Supple, trachea midline. No JVD or lymphadenopathy. CARDIOVASCULAR: Regular rate and rhythm without murmurs, gallops, or rubs. RESPIRATORY: Orally intubated on mechanical ventilation, Breath sounds equal bilaterally, clear to auscultation. GASTROINTESTINAL: Abdomen soft, non-tender, nondistended with +BS. MUSCULOSKELETAL: No cyanosis, or edema. NEURO: Patient off sedation. Able to answer yes/no questions with head nodding, following commands Urinary Catheter: Yes A/P Problem List: (1) COPD exacerbation ICD Code: J44.1 Status: Acute (2) PNA (pneumonia) ICD Code: J18.9 Status: Acute (3) A-fib ICD Code: I48.91 Status: Chronic (4) NSTEMI (non-ST elevated myocardial infarction) ICD Code: I21.4 Status: Acute Assessment and Plan Neuro: - Intubated and Sedated with propofol . Sedation on hold for possible extubation - Depression - Questionable alcohol abuse - Baseline tremors per primary care physician - Continue CPAP trials, obtain SBT parameters with tentative plan for extubation this afternoon pending clinical course - Neurochecks per [facility] protocol - Held 12/19 for Zyvox ABX treatment, however patient was started on Vancomycin in order for him to continue with his Zoloft(12/20). - Continue thiamine/MVI, Patient has tremors at baseline per primary care physician. Respiratory: - Acute respiratory failure - COPD exacerbation - Possible ongoing pneumonia (HCAP) - Intubated and sedated, attempt CPAP/Extubation this afternoon pending clinical course - DuoNeb scheduled and when necessary - BC x2: Staph epidermidis with multiple resistances x2; prior cultures all negative - Repeat CXR 12/20: Cardiomegaly with no acute disease. - Repeat BC 12/20: NTD - Zosyn and Azithromycin (12/17- ) - Vancomycin 15mg/kg ordered (12/18- ), pharmacy consulted. Zyvox ordered, however is contraindicated as patient is on Zoloft - IV Solumedrol Q8H -Ventilator bundle -12/22 -Chest [id number] left basilar density Cardiac: - Coronary artery disease - Stent placement in 2013 - Atrial fibrillation ablation x2 - NSTEMI - Troponin 0.12, 1.19, 1.92 with CKMB up to 4.7. - EKG: Sinus tachycardia with L axis deviation. - Continue Amiodarone, Atorvastatin, ASA, and Xarelto - Cardiology following GI: - GERD - Omeprazole - Tube feeds per protocol Renal: - KADI on admission - KADI resolved with fluid resuscitation - Monitor I/Os, cortes placed - NS at 30cc/hr Endocrine: - Tube feeds held for possible CPAP/extubation this afternoon - SSI for glycemic control as needed. - Monitor BG per [facility] protocol Heme/ID: - Leukocytosis with left shift s/p steroids - BC x2: Gram Positive cocci in clusters x2; prior cultures all negative - Repeat BC 12/20: NTD - Zosyn and Azithromycin (12/17- ) - Vancomycin (12/18- ) - Continue to monitor CBC, transfuse if necessary - Infectious Disease followingDr. [place] DVT - On Xarelto, MO/SCDs GI prophylaxis - Omeprazole Palliative Care consulted to assist with goals of care. Patient's daughter is is scheduled to meet with palliative care today to discuss goals of care. Discussed with KARATE INSTRUCTOR at bedside. This patient remains critically ill with one or more organ systems which are or may become a threat to life. I have spent in excess of 34 minutes discontinuously in the care and management of this patient. This time is exclusive of procedures, and includes, but is not limited to, evaluation of the patient, review of the medical record, discussions with family, consultants, nursing staff, or respiratory therapy, and documentation in the medical record. Physician Alexus Velez Problem Qualifiers (1) PNA (pneumonia): Qualified Code: J18.9 - Pneumonia due to infectious organism, unspecified laterality, unspecified part of lung Alexus Velez MD December 22, 2016 13:39
[2016-12-22] MEDS: AZITHROMYCIN INJ 500 MG in SODIUM CHLOR 0.9% 250 ML INJ 250 ML IV SCH (20:34)
[2016-12-22] MEDS: ATORVASTATIN 20 MG TAB PO SCH (20:40)
[2016-12-23] VITALS (14 sets, daily range): BP systolic 147–166; BP diastolic 73–84; PULSE 53–70; RESP 18–24; TEMP 98.3–99; O2SAT 95–98
[2016-12-23] MEDS: CHLORHEXIDINE GLUCONATE 2 % 1 PACK (2 CLOTHS) TOP SCH (04:00)
[2016-12-23] MEDS: SODIUM CHLOR 0.9% 1000 ML INJ 1,000 ML IV SCH ×2 (04:58→19:39)
[2016-12-23] MEDS: methylPREDNISolone SOD SUCC 40 MG/1 ML VIAL IV PUSH SCH ×3 (04:58→22:33)
[2016-12-23] MEDS: PIPERACIL-TAZO 4.5 GM PREMIX 100 ML IV SCH ×4 (04:58→22:33)
[2016-12-23 05:23] LABS: HEMATOCRIT 30.7 % (39.0-51.0); MEAN CORPUSCULAR HEMOGLOBIN 28.4 PG (27.0-34.0); MEAN CORPUSCULAR HGB CONC 32.7 % (32.0-36.0); PLATELET COUNT 175 TH/MM3 (150-450); RED BLOOD COUNT 3.53 MIL/MM3 (4.50-5.90); RED CELL DISTRIBUTION WIDTH 18.5 % (11.6-17.2); REVIEW FLAG FINAL; WHITE BLOOD COUNT 17.7 TH/MM3 (4.0-11.0)
[2016-12-23 05:26] LABS: BICARBONATE 29.6 MEQ/L (21.0-32.0); MAGNESIUM 2.4 MG/DL (1.5-2.5); POTASSIUM 4.6 MEQ/L (3.5-5.1)
[2016-12-23] MEDS: INSULIN ASPART SUPPLEMENTAL SCALE SQ SCH ×4 (06:00→17:32)
[2016-12-23] MEDS: SODIUM CHLORIDE 0.9% FLUSH 10 ML FLUSH SCH ×2 (08:00→19:38)
[2016-12-23] MEDS: FOLIC ACID 1 MG TAB PO SCH (08:00)
[2016-12-23] MEDS: DOCUSATE SODIUM 100 MG/10 ML UDC G-TUBE SCH ×2 (08:01→19:35)
[2016-12-23] MEDS: PANTOPRAZOLE SOD 40 MG DELAYED RELEASE TAB PO SCH (08:01)
[2016-12-23] MEDS: ARTIFICIAL TEARS OPTH SOLN 15 ML BTL EACH EYE SCH ×3 (08:01→17:32)
[2016-12-23] MEDS: AMIODARONE 200 MG TAB PO SCH (08:01)
[2016-12-23] MEDS: ASPIRIN EC 81 MG TABEC PO SCH (08:01)
[2016-12-23] MEDS: MULTIVITAMINS/MINERALS THERAPEUTIC TAB PO SCH (08:01)
[2016-12-23] MEDS: SERTRALINE HCL 50 MG TAB PO SCH (08:01)
[2016-12-23] MEDS: BENEPROTEIN POWDER 1 PACK G-TUBE SCH ×3 (08:01→17:32)
[2016-12-23] MEDS: THIAMINE HCL 100 MG TAB PO SCH (08:01)
[2016-12-23] MEDS: RIVAROXABAN 20 MG TAB PO SCH (10:56)
--- NOTE | 2016-12-23 11:03 | HHI.PR ---
Subjective Remarks Follow-up respiratory failure, COPD exacerbation, pneumonia. The patient states that he feels better today. No chest pain. Dyspnea is improving. No nausea or vomiting. Objective Vitals Vital Signs Date Time Temp Pulse Resp B/P Pulse Ox O2 Delivery O2 Flow Rate FiO2 12/23/16 08:00 62 12/23/16 08:00 98.9 62 18 157/73 97 12/23/16 06:00 61 12/23/16 04:00 99.0 67 21 147/76 95 12/23/16 04:00 60 12/23/16 02:00 64 12/23/16 00:00 63 12/23/16 00:00 98.8 68 19 156/79 96 12/22/16 22:00 73 12/22/16 20:00 99.0 65 24 154/85 97 12/22/16 20:00 65 12/22/16 19:54 97 Nasal Cannula 3.00 12/22/16 18:00 65 12/22/16 16:00 99.0 67 14 150/70 97 12/22/16 16:00 67 12/22/16 15:09 95 Nasal Cannula 3 12/22/16 14:47 96 35 12/22/16 14:30 30 12/22/16 14:29 97 30 12/22/16 14:00 60 12/22/16 12:00 63 12/22/16 12:00 99.0 63 14 132/66 96 12/22/16 12:00 30 12/22/16 11:34 98 30 I/O 12/22/16 12/22/16 12/22/16 12/23/16 12/23/16 12/23/16 07:00 15:00 23:00 07:00 15:00 23:00 Intake Total 1427 ml 1350 ml 1375 ml 1094 ml Output Total 500 ml 800 ml 600 ml 850 ml Balance 927 ml 550 ml 775 ml 244 ml Intake Oral 0 ml 100 ml IV Total 1030 ml 1350 ml 858 ml 994 ml Tube Feeding 367 ml 0 ml 517 ml Other 30 ml Output Urine Total 500 ml 800 ml 600 ml 850 ml # Bowel Movements 1 1 3 Result Diagram: 12/23/16 0304 12/23/16 0304 Imaging Last Impressions Chest X-Ray 12/22/16 06 Signed Impressions: Service Date/Time: Thursday, December 22, 2016 02:57 - CONCLUSION: Stable left basilar density. Jerald Figueroa MD Objective Remarks General: No acute distress. Heart: Regular rate and rhythm. No murmur. Lungs: Clear to auscultation bilaterally. No wheezes, rales, or rhonchi. Breathing is nonlabored. Abdomen: Soft, nontender, nondistended. Extremities: No lower extremity edema. Psych: Alert and oriented. Urinary Catheter: Yes Assessment to: Remove Vascular Central Line Catheter: No A/P Problem List: (1) Acute respiratory failure ICD Code: J96.00 Status: Acute (2) CAD (coronary artery disease) ICD Code: I25.10 Status: Chronic (3) NSTEMI (non-ST elevated myocardial infarction) ICD Code: I21.4 Status: Acute (4) COPD exacerbation ICD Code: J44.1 Status: Acute (5) PNA (pneumonia) ICD Code: J18.9 Status: Acute (6) A-fib ICD Code: I48.91 Status: Chronic Assessment and Plan 1. Acute respiratory failure: Improved. Patient extubated yesterday. Continue steroids, antibiotics, bronchodilators. 2. Pneumonia, COPD exacerbation: Continue antibiotics, steroids, bronchodilators. 3. NSTEMI: Patient has history of coronary artery disease with stent placement in 2013. Appreciate cardiology recommendations. Troponin increased. Continue amiodarone, atorvastatin, aspirin, Xarelto. 4. Atrial fibrillation: Status post ablation 2. Continue amiodarone. 5. GERD: Continue PPI. 6. FEN: Tube feeds discontinued yesterday. Passed bedside swallow eval this morning. Start heart healthy diet. 7. Bacteremia: Repeat blood cultures are now growing gram-positive cocci. Appreciate infectious disease recommendations. Continue antibiotics. 8. DVT prophylaxis: Xarelto, SCDs, MO renatoe. 9. Appreciate palliative care assistance. Problem Qualifiers (1) PNA (pneumonia): Qualified Code: J18.9 - Pneumonia due to infectious organism, unspecified laterality, unspecified part of lung Petr Pfeiffer MD December 23, 2016 11:03
[2016-12-23] MEDS ORDERED: PHARMACY ORDERED LAB ONE (11:45)
[2016-12-23] MEDS: VANCOMYCIN INJ 1,250 MG in SODIUM CHLOR 0.9% 250 ML INJ 250 ML IV SCH (13:29)
[2016-12-23] MEDS ORDERED: hydrALAZINE HCL 20 MG/ML VIAL IV PUSH PRN (15:15)
[2016-12-23] MEDS: ATORVASTATIN 20 MG TAB PO SCH (19:35)
[2016-12-23] MEDS: AZITHROMYCIN INJ 500 MG in SODIUM CHLOR 0.9% 250 ML INJ 250 ML IV SCH (19:39)
[2016-12-23] MEDS: RESP: ALBUTEROL 2.5 MG/IPRATROPIUM 0.5 MG NEB (PRN) INH (22:07)
[2016-12-24] VITALS (10 sets, daily range): BP systolic 119–156; BP diastolic 58–87; PULSE 58–68; RESP 16–19; TEMP 97.4–98.5; O2SAT 95–100
[2016-12-24] MEDS: VANCOMYCIN INJ 1,250 MG in SODIUM CHLOR 0.9% 250 ML INJ 250 ML IV SCH ×2 (02:05→17:02)
[2016-12-24] MEDS: CHLORHEXIDINE GLUCONATE 2 % 1 PACK (2 CLOTHS) TOP SCH (04:00)
[2016-12-24 04:34] LABS: AUTOMATED NEUTROPHIL # 12.9 TH/MM3 (1.8-7.7); BASOPHIL % 0.1 % (0.0-2.0); HEMATOCRIT 28.1 % (39.0-51.0); LYMPH % 2.5 % (9.0-44.0); LYMPHOCYTE # 0.3 TH/MM3 (1.0-4.8); MEAN CELL VOLUME 86.3 FL (80.0-100.0); MEAN CORPUSCULAR HEMOGLOBIN 28.1 PG (27.0-34.0); MEAN CORPUSCULAR HGB CONC 32.6 % (32.0-36.0); MONO % 3.4 % (0.0-8.0); PLATELET COUNT 163 TH/MM3 (150-450); RED BLOOD COUNT 3.25 MIL/MM3 (4.50-5.90); RED CELL DISTRIBUTION WIDTH 17.8 % (11.6-17.2); WHITE BLOOD COUNT 13.7 TH/MM3 (4.0-11.0)
[2016-12-24] MEDS: PIPERACIL-TAZO 4.5 GM PREMIX 100 ML IV SCH ×4 (04:34→21:51)
[2016-12-24] MEDS: methylPREDNISolone SOD SUCC 40 MG/1 ML VIAL IV PUSH SCH ×3 (04:34→21:51)
[2016-12-24 04:40] LABS: HEMO FLAGS AUTO DIFF
[2016-12-24 04:54] LABS: BICARBONATE 28.6 MEQ/L (21.0-32.0); POTASSIUM 4.4 MEQ/L (3.5-5.1)
[2016-12-24] MEDS: INSULIN ASPART SUPPLEMENTAL SCALE SQ SCH ×5 (06:00→21:00)
[2016-12-24 07:00] LABS: MYELOCYTES 1 % (0-0); NEUTROPHIL # MANUAL DIFF 13.2 TH/MM3 (1.8-7.7); POLYS (SEG NEUTROPHILS) 95 % (16-70); WBC DIFF SAMPLE 100
[2016-12-24 07:01] LABS: OVALOCYTES 1+ (NORMAL); PLATELET ESTIMATE SMEAR NORMAL (NORMAL); PLATELET MORPHOLOGY ENLARGED (NORMAL); SCAN/DIFF FINAL DIFF MANUAL
[2016-12-24] MEDS: RESP: ALBUTEROL 2.5 MG/IPRATROPIUM 0.5 MG NEB (PRN) INH (07:38)
[2016-12-24] MEDS: PANTOPRAZOLE SOD 40 MG DELAYED RELEASE TAB PO SCH (08:32)
[2016-12-24] MEDS: SODIUM CHLORIDE 0.9% FLUSH 10 ML FLUSH SCH ×2 (08:32→20:27)
[2016-12-24] MEDS: MULTIVITAMINS/MINERALS THERAPEUTIC TAB PO SCH (08:32)
[2016-12-24] MEDS: FOLIC ACID 1 MG TAB PO SCH (08:33)
[2016-12-24] MEDS: SERTRALINE HCL 50 MG TAB PO SCH (08:33)
[2016-12-24] MEDS: RIVAROXABAN 20 MG TAB PO SCH (08:33)
[2016-12-24] MEDS: ARTIFICIAL TEARS OPTH SOLN 15 ML BTL EACH EYE SCH ×3 (08:33→17:24)
[2016-12-24] MEDS: DOCUSATE SODIUM 100 MG/10 ML UDC G-TUBE SCH ×2 (08:33→20:27)
[2016-12-24] MEDS: THIAMINE HCL 100 MG TAB PO SCH (08:33)
[2016-12-24] MEDS: AMIODARONE 200 MG TAB PO SCH (08:33)
[2016-12-24] MEDS: ASPIRIN EC 81 MG TABEC PO SCH (08:33)
[2016-12-24] MEDS: BENEPROTEIN POWDER 1 PACK G-TUBE SCH ×3 (08:33→17:23)
--- NOTE | 2016-12-24 09:21 | HHI.PR ---
Subjective Remarks Follow up COPD exacerbation, pneumonia. Patient states that he feels weak, but otherwise feels better. Still having diarrhea. Nursing states that stools are loose, not watery or malodorous. No chest pain, abdominal pain. Objective Vitals Vital Signs Date Time Temp Pulse Resp B/P Pulse Ox O2 Delivery O2 Flow Rate FiO2 12/24/16 08:00 98.3 60 18 123/58 95 12/24/16 08:00 60 12/24/16 07:39 97 Nasal Cannula 2.00 12/24/16 06:00 58 12/24/16 04:00 58 12/24/16 04:00 98.4 58 16 138/66 96 12/24/16 02:00 66 12/24/16 00:00 98.5 63 18 119/63 97 12/24/16 00:00 63 12/23/16 22:00 70 12/23/16 20:00 98.3 69 20 154/81 97 12/23/16 20:00 69 12/23/16 19:54 96 Nasal Cannula 3.00 12/23/16 18:00 70 12/23/16 16:00 54 12/23/16 16:00 98.6 54 22 161/84 98 12/23/16 14:00 53 12/23/16 12:00 98.6 67 24 166/79 98 12/23/16 12:00 67 12/23/16 11:02 97 Nasal Cannula 3.00 12/23/16 10:00 62 I/O 12/23/16 12/23/16 12/23/16 12/24/16 12/24/16 12/24/16 07:00 15:00 23:00 07:00 15:00 23:00 Intake Total 1094 ml 1278 ml 1369 ml 905 ml Output Total 850 ml 725 ml 850 ml 600 ml Balance 244 ml 553 ml 519 ml 305 ml Intake Oral 100 ml 480 ml 240 ml IV Total 994 ml 798 ml 1129 ml 905 ml Output Urine Total 850 ml 725 ml 850 ml 600 ml # Bowel Movements 3 2 2 2 Result Diagram: 12/24/16 0308 12/24/16 0308 Imaging Last Impressions Chest X-Ray 12/22/16 0600 Signed Impressions: Service Date/Time: Thursday, December 22, 2016 02:57 - CONCLUSION: Stable left basilar density. Jerald Figueroa MD Objective Remarks General: Elderly male in no acute distress. Heart: Regular rate and rhythm. No murmur. Lungs: Clear to auscultation bilaterally. No wheezes, rales, or rhonchi. Breathing is nonlabored. Abdomen: Soft, nontender, nondistended. Extremities: No lower extremity edema. Psych: Alert and oriented. Urinary Catheter: Yes Assessment to: Remove Vascular Central Line Catheter: No A/P Problem List: (1) Acute respiratory failure ICD Code: J96.00 Status: Resolved (2) CAD (coronary artery disease) ICD Code: I25.10 Status: Chronic (3) NSTEMI (non-ST elevated myocardial infarction) ICD Code: I21.4 Status: Acute (4) COPD exacerbation ICD Code: J44.1 Status: Acute (5) PNA (pneumonia) ICD Code: J18.9 Status: Acute (6) A-fib ICD Code: I48.91 Status: Chronic Assessment and Plan 1. Acute respiratory failure: Improved. Patient extubated. Continue steroids, antibiotics, bronchodilators. 2. Pneumonia, COPD exacerbation: Continue antibiotics, steroids, bronchodilators. 3. NSTEMI: Patient has history of coronary artery disease with stent placement in 2013. Appreciate cardiology recommendations. Troponin increased. Continue amiodarone, atorvastatin, aspirin, Xarelto. 4. Atrial fibrillation: Status post ablation 2. Continue amiodarone. 5. GERD: Continue PPI. 6. FEN: Tube feeds discontinued yesterday. Passed bedside swallow eval this morning. Start heart healthy diet. 7. Bacteremia: Repeat blood cultures are now growing gram-positive cocci. Appreciate infectious disease recommendations. Continue antibiotics. 8. DVT prophylaxis: Xarelto, SCDs, MO lay. 9. Appreciate palliative care assistance. 10. Diarrhea: ? secondary to antibiotics, tube feeds. Monitor. Problem Qualifiers (1) PNA (pneumonia): Qualified Code: J18.9 - Pneumonia due to infectious organism, unspecified laterality, unspecified part of lung Petr Pfeiffer MD December 24, 2016 09:21
[2016-12-24] MEDS: SODIUM CHLOR 0.9% 1000 ML INJ 1,000 ML IV SCH ×2 (09:54→18:50)
--- NOTE | 2016-12-24 13:15 | HHI.HCPN ---
Reason for visit a. To assist with evaluation and management of symptoms including: dyspnea; agitation; pain b. To assist medical decision maker(s) with: better understanding of current medical conditions; weighing benefits/burdens of medical treatment options; making medical treatment decisions. . (Brianna Bloom) Subjective/Interval History Palliative care follow-up for further clarification of goals of care. Patient was medically extubated on 12/22/16, tolerated well with O2 via nasal cannula. Patient was transfer to the medical floor from ICU this morning. Patient afebrile, stable hemodynamically. Remains on O2 via nasal cannula at 3 L, satting in the mid to high 90s. Laboratory work to include WBC 13.7, Hgb 9.2, platelet count 163. Sodium 140, potassium 4.4, BUN/creatinine 30/0.9. Most recent chest x-ray 12/22/16 showing stable left basilar density. Patient seen in medical floor. He was laying in bed in no acute distress. Patient and oriented times self, place and situation. Verbal and able to communicate needs. Patient denies any pain, nausea vomiting or abdominal discomfort. Endorsing shortness of breath on minimal exertion. Reporting soft stools, tolerating heart healthy diet. Daughter Zaina Dillon at bedside. Medical update provided. Reviewed with patient and daughter events leading to his hospitalization, clinical course and current plan of care. Patient was living independently prior to this admission, requiring assistance with grocery shopping and going to the doctor as he does not drive. Poor functional tolerance secondary to dyspnea, patient with COPD and oxygen dependent at home. Reporting unsteady gait prior to this hospitalization, no falls within the last 3 months but requires a walker to ambulate. Discussed current treatment plan, ongoing discharge planning to include home with home health pt vs rehabilitation, pending PT recommendations. Reviewed CODE STATUS with patient. Patient reports that she would like to remain a full code at this time while he discusses further goals of care with his family. Patient reports that in the event of respiratory arrest, patient will like to be intubated, but verbalized that if there is no hope of improvement within 7 days, his daughter can proceed with withdrawal life support. Patient verbalizing that he will like to designated his daughter Melissa as healthcare surrogate. Patient declined completing living well and healthcare surrogate designation today pending further goals of care discussion with additional family members to include CODE STATUS. Patient in agreement of palliative care follow up tomorrow morning for completion of advance directives. . Family/friend interactions See interval note. . (Brianna Bloom) Advance Directives Living Will: Never completed Health Care Surrogate: Never completed Durable Power of Hemming And Tacking Machine Operator: Never completed (Brianna Bloom) Advance Directive Specifics Date completed: Advance directives were never completed. . Health Care Surrogate(s): No written designation of health care surrogate. . Documented care wishes: No written documentation of health care goals/preferences. . Significant change in goals: Full code. Continue with current medical management. . (Brianna Bloom) Objective Vital Signs Date Time Temp Pulse Resp B/P Pulse Ox O2 Delivery O2 Flow Rate FiO2 12/24/16 11:33 98.3 68 19 144/79 97 12/24/16 08:00 98.3 60 18 123/58 95 12/24/16 08:00 60 12/24/16 07:39 97 Nasal Cannula 2.00 12/24/16 06:00 58 12/24/16 04:00 58 12/24/16 04:00 98.4 58 16 138/66 96 12/24/16 02:00 66 12/24/16 00:00 98.5 63 18 119/63 97 12/24/16 00:00 63 12/23/16 22:00 70 12/23/16 20:00 98.3 69 20 154/81 97 12/23/16 20:00 69 12/23/16 19:54 96 Nasal Cannula 3.00 12/23/16 18:00 70 12/23/16 16:00 54 12/23/16 16:00 98.6 54 22 161/84 98 12/23/16 14:00 53 Intake & Output 12/24/16 12/24/16 07:00 19:00 Intake Total 2274 ml Output Total 1450 ml Balance 824 ml Intake Oral 240 ml IV Total 2034 ml Output Urine Total 1450 ml # Bowel Movements 4 Physical Exam CONSTITUTIONAL/GENERAL: Adequately nourished man remain in bed in no acute distress. TUBES/LINES/DRAINS: Samaniego catheter; SCDs, peripheral IV SKIN: No jaundice, rashes, or lesions. Ecchymoses on upper extremities. No wounds seen anteriorly. Skin temperature appropriate. Not diaphoretic. HEAD: Atraumatic. Normocephalic. EYES: Pupils equal and round and reactive. No scleral icterus. No injection or drainage. ENT: Normal hearing. Nose without bleeding or purulent drainage. Moist oral mucosa. NECK: Trachea midline. Supple. CARDIOVASCULAR: Regular rate and rhythm without murmurs, gallops, or rubs. No JVD. Peripheral pulses symmetric. Trace edema to bilateral hands. RESPIRATORY/CHEST: Symmetric, unlabored respirations. Diminished breath sounds bilaterally. Breath sounds equal bilaterally. No wheezes, rales, or rhonchi. GASTROINTESTINAL: Abdomen soft, round, non-tender, nondistended. No guarding. Bowel sounds present. GENITOURINARY: Without palpable bladder distension. Samaniego catheter in place. MUSCULOSKELETAL: Extremities without clubbing, cyanosis. Edema to bilateral upper extremities. NEUROLOGICAL: Alert and oriented 3. Verbal and able to communicate needs. Following instructions. Moves all extremities independently. PSYCHIATRIC: Calm, pleasant. . (Brianna Bloom) Diagnostic Tests Laboratory Laboratory Tests Test 12/22/16 12/23/16 12/23/16 12/24/16 03:59 03:04 11:27 03:08 White Blood Count 14.5 TH/MM3 17.7 TH/MM3 13.7 TH/MM3 (4.0-11.0) (4.0-11.0) (4.0-11.0) Red Blood Count 3.58 MIL/MM3 3.53 MIL/MM3 3.25 MIL/MM3 (4.50-5.90) (4.50-5.90) (4.50-5.90) Hemoglobin 10.4 GM/DL 10.0 GM/DL 9.2 GM/DL (13.0-17.0) (13.0-17.0) (13.0-17.0) Hematocrit 31.2 % 30.7 % 28.1 % (39.0-51.0) (39.0-51.0) (39.0-51.0) Mean Corpuscular Volume 87.4 FL 87.0 FL 86.3 FL (80.0-100.0) (80.0-100.0) (80.0-100.0) Mean Corpuscular Hemoglobin 29.1 PG 28.4 PG 28.1 PG (27.0-34.0) (27.0-34.0) (27.0-34.0) Mean Corpuscular Hemoglobin 33.3 % 32.7 % 32.6 % Concent (32.0-36.0) (32.0-36.0) (32.0-36.0) Red Cell Distribution Width 18.3 % 18.5 % 17.8 % (11.6-17.2) (11.6-17.2) (11.6-17.2) Platelet Count 175 TH/MM3 175 TH/MM3 163 TH/MM3 (150-450) (150-450) (150-450) Mean Platelet Volume 9.9 FL 10.2 FL 10.0 FL (7.0-11.0) (7.0-11.0) (7.0-11.0) Sodium Level 145 MEQ/L 144 MEQ/L 140 MEQ/L (136-145) (136-145) (136-145) Potassium Level 4.5 MEQ/L 4.6 MEQ/L 4.4 MEQ/L (3.5-5.1) (3.5-5.1) (3.5-5.1) Chloride Level 109 MEQ/L 108 MEQ/L 105 MEQ/L (98-107) (98-107) (98-107) Carbon Dioxide Level 28.9 MEQ/L 29.6 MEQ/L 28.6 MEQ/L (21.0-32.0) (21.0-32.0) (21.0-32.0) Anion Gap 7 MEQ/L (5-15) 6 MEQ/L (5-15) 6 MEQ/L (5-15) Blood Urea Nitrogen 40 MG/DL (7-18) 38 MG/DL (7-18) 38 MG/DL (7-18) Creatinine 0.96 MG/DL 0.91 MG/DL 0.89 MG/DL (0.60-1.30) (0.60-1.30) (0.60-1.30) Estimat Glomerular Filtration 77 ML/MIN (>89) 82 ML/MIN (>89) 84 ML/MIN (>89) Rate Random Glucose 145 MG/DL 103 MG/DL 115 MG/DL (74-106) (74-106) (74-106) Calcium Level 8.2 MG/DL 7.9 MG/DL 8.1 MG/DL (8.5-10.1) (8.5-10.1) (8.5-10.1) Phosphorus Level 3.3 MG/DL 3.4 MG/DL (2.5-4.9) (2.5-4.9) Magnesium Level 2.6 MG/DL 2.4 MG/DL (1.5-2.5) (1.5-2.5) Vancomycin Level Trough 20.6 MCG/ML (5.0-10.0) Neutrophils (%) (Auto) 94.0 % (16.0-70.0) Lymphocytes (%) (Auto) 2.5 % (9.0-44.0) Monocytes (%) (Auto) 3.4 % (0.0-8.0) Eosinophils (%) (Auto) 0.0 % (0.0-4.0) Basophils (%) (Auto) 0.1 % (0.0-2.0) Neutrophils # (Auto) 12.9 TH/MM3 (1.8-7.7) Lymphocytes # (Auto) 0.3 TH/MM3 (1.0-4.8) Monocytes # (Auto) 0.5 TH/MM3 (0-0.9) Eosinophils # (Auto) 0.0 TH/MM3 (0-0.4) Basophils # (Auto) 0.0 TH/MM3 (0-0.2) CBC Comment AUTO DIFF Differential Total Cells 100 Counted Neutrophils % (Manual) 95 % (16-70) Lymphocytes % 2 % (9-44) Monocytes % 2 % (0-8) Neutrophils # (Manual) 13.2 TH/MM3 (1.8-7.7) Myelocytes 1 % (0-0) Differential Comment FINAL DIFF MANUAL Platelet Estimate NORMAL (NORMAL) Platelet Morphology Comment ENLARGED (NORMAL) Ovalocytes 1+ (NORMAL) (Brianna Bloom) Result Diagram: 12/24/168 12/24/16 0308 Imaging Last Impressions Chest X-Ray 12/22/16 0600 Signed Impressions: Service Date/Time: Thursday, December 22, 2016 02:57 - CONCLUSION: Stable left basilar density. Jerald Figueroa MD Procedures * 12/17/16 -Intubation/Mechanical ventilation * 12/22/16 -extubation . (Brianna Bloom) Assessment and Plan Disease Oriented Problem List: (1) Sepsis Comment: Blood growing out gram positive cocci . (2) COPD exacerbation (3) NSTEMI (non-ST elevated myocardial infarction) Comment: Elevated troponin and CK MB fraction on this admission . (4) Alcohol abuse (5) Tremor Comment: Reportedly worsening over the last year. Unclear if this has been worked up by a physician. . Symptom Scale: (1) Dyspnea 0-10 Scale: Unable to quantify Comment: Extubated on 12/22/16. Currently tolerating O2 via nasal cannula at 3 L. Dyspnea on minimal exertion. . (2) Pain 0-10 Scale: Unable to quantify Comment: No significant pain syndromes prior to this hospitalization but did occasionally complain of back pain and minor arthritis pains. Reports no pain at this time. . (3) Agitation 0-10 Scale: Unable to quantify Comment: No signs of EtOH withdrawal at this time. 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 Spiritual: Hinduism lyndsay. Legal: No living will completed. Ethical issues impacting care: No living will completed. . Important Contacts * Pako Bunch (son / co-proxy): [phone] * Zaina Dillon (daughter / co-proxy ): [phone] * Ninfa Richardson (step-daughter): [phone] . Prognosis Mr. Bunch has lung disease that has been progressing over time. He is mostly oxygen dependent at this point. He can typically walk from car to store front but now needs an electric cart to get around. His recent "bounce-back" hospitalization raises concerns that it will be hard to keep the patient out of the hospital in the future. On this hospitalization he has appeared to have suffered a non-ST segment myocardial infarction and also appears to be septic. It is possible that the patient continues with alcohol abuse which would also adversely effect prognosis. Patient is a very high risk for further complications, continue decline and . . Code Status: Full Code (Patient will remain full code at least until daughter arrives unless patinet becomes capacitated and tells us otherwise. ) Plan * CODE STATUS: FULL code. Reviewed CODE STATUS with patient. Patient reports that she would like to remain a full code at this time while he discusses further goals of care with his family. Patient reports that in the event of respiratory arrest, patient will like to be intubated, but verbalized that if there is no hope of improvement within 7 days, his daughter can proceed with withdrawal life support. * HEALTHCARE DECISION-MAKING:Mr Bunch currently participating in medical decision making. In the event patient is incapacitated health care decision making would fall to his two biological children. His daughter Zaina is currently in [place] visiting patient. * GOALS OF CARE: As per patient, goals of care disease times to continue current medical management with hopes of returning home. Patient verbalizing that he will like to designated his daughter Melissa as healthcare surrogate. Patient declined completing living well and healthcare surrogate designation today pending further goals of care discussion with additional family members to include CODE STATUS. Patient in agreement of palliative care follow up tomorrow morning for completion of advance directives. * SYMPTOMS: == Dyspnea: Extubated on 12/22/16, currently tolerating O2 via nasal cannula at 3 L. == Pain: History of chronic back pain, no pain reported at this time.status. Orders are available for fentanyl. == Agitation: No signs of agitation noted during my visit today. Lorazepam available as needed. These appear adequate. * Palliative care will continue to follow-up with patient and family for assistance and completion of advance directives. Patient declined completion of said documents today. * Palliative care contact information has been provided to family. * Palliative care to continue to follow-up with this patient and family for further clarifications of goals of care as his clinical course continues to evolve. . (Brianna Bloom) Time Spent Total Floor Time (mins): 34 (Total time to include review of medical records, physical exam, goals of care conversation with patient and daughter.) >50% Counseling/Coord of Care: Yes (Brianna Bloom) Attestation To help prompt me to consider important information that might be impacting today's encounter and assessment, information from prior notes written by myself or my colleagues may have been "brought forward" into today's note. My signature on this note, however, is an attestation that I personally performed the exam, history, and/or decision-making noted today, and, unless otherwise indicated, the interactions with patient, family, and staff as well as the review of records all occurred today. I also attest that the listed assessment and stated plan reflect my best clinical judgment today based on the combination of historical information, prior notes, and today's exam/ interactions. When time spent is documented, it refers only to time spent today by the signer, or if indicated, combined time spent today by collaborating physician/nurse practitioner. (Brianna Bloom) Collaborating MD Comments . Chart reviewed. Cased discussed with palliative care ELECTRIC MULE OPERATOR. Above ELECTRIC MULE OPERATOR note reviewed and I concur. . (Aden Hardy MD) Brianna Bloom December 24, 2016 13:15 Aden Hardy MD January 14, 2017 15:57
[2016-12-24] MEDS: ATORVASTATIN 20 MG TAB PO SCH (20:27)
[2016-12-24] MEDS: AZITHROMYCIN INJ 500 MG in SODIUM CHLOR 0.9% 250 ML INJ 250 ML IV SCH (20:27)
[2016-12-25] VITALS (9 sets, daily range): BP systolic 111–148; BP diastolic 69–83; PULSE 56–70; RESP 18–20; TEMP 97–98.8; O2SAT 97–100
[2016-12-25] MEDS: SODIUM CHLOR 0.9% 1000 ML INJ 1,000 ML IV SCH ×3 (01:41→18:40)
[2016-12-25] MEDS ORDERED: PHARMACY ORDERED LAB ONE (01:45)
[2016-12-25] MEDS: RESP: ALBUTEROL 2.5 MG/IPRATROPIUM 0.5 MG NEB (PRN) INH ×4 (02:01→19:49)
[2016-12-25] MEDS: VANCOMYCIN INJ 1,250 MG in SODIUM CHLOR 0.9% 250 ML INJ 250 ML IV SCH (03:09)
[2016-12-25] MEDS: CHLORHEXIDINE GLUCONATE 2 % 1 PACK (2 CLOTHS) TOP SCH (04:00)
[2016-12-25] MEDS: PIPERACIL-TAZO 4.5 GM PREMIX 100 ML IV SCH ×2 (04:45→08:46)
[2016-12-25] MEDS: methylPREDNISolone SOD SUCC 40 MG/1 ML VIAL IV PUSH SCH ×2 (06:12→14:25)
[2016-12-25] MEDS: INSULIN ASPART SUPPLEMENTAL SCALE SQ SCH ×4 (06:15→20:41)
[2016-12-25 07:21] LABS: AUTOMATED NEUTROPHIL # 12.5 TH/MM3 (1.8-7.7); BASOPHIL % 0.1 % (0.0-2.0); HEMATOCRIT 27.3 % (39.0-51.0); HEMO FLAGS DIFF FINAL; LYMPH % 1.9 % (9.0-44.0); LYMPHOCYTE # 0.3 TH/MM3 (1.0-4.8); MEAN CELL VOLUME 85.7 FL (80.0-100.0); MEAN CORPUSCULAR HEMOGLOBIN 28.9 PG (27.0-34.0); MEAN CORPUSCULAR HGB CONC 33.8 % (32.0-36.0); MONO % 4.1 % (0.0-8.0); NEUT % 93.9 % (16.0-70.0); PLATELET COUNT 140 TH/MM3 (150-450); RED BLOOD COUNT 3.18 MIL/MM3 (4.50-5.90); RED CELL DISTRIBUTION WIDTH 17.6 % (11.6-17.2); WHITE BLOOD COUNT 13.3 TH/MM3 (4.0-11.0)
[2016-12-25 07:22] LABS: PROTHROMBIN TIME - PATIENT 11.6 SEC (9.8-11.6)
[2016-12-25 07:42] LABS: BICARBONATE 30.6 MEQ/L (21.0-32.0); POTASSIUM 4.1 MEQ/L (3.5-5.1)
[2016-12-25] MEDS: ASPIRIN EC 81 MG TABEC PO SCH (08:39)
[2016-12-25] MEDS: SERTRALINE HCL 50 MG TAB PO SCH (08:39)
[2016-12-25] MEDS: BENEPROTEIN POWDER 1 PACK G-TUBE SCH ×3 (08:40→17:31)
[2016-12-25] MEDS: AMIODARONE 200 MG TAB PO SCH (08:40)
[2016-12-25] MEDS: DOCUSATE SODIUM 100 MG/10 ML UDC G-TUBE SCH ×2 (08:40→20:38)
[2016-12-25] MEDS: SODIUM CHLORIDE 0.9% FLUSH 10 ML FLUSH SCH ×2 (08:40→20:38)
[2016-12-25] MEDS: THIAMINE HCL 100 MG TAB PO SCH (08:40)
[2016-12-25] MEDS: ARTIFICIAL TEARS OPTH SOLN 15 ML BTL EACH EYE SCH ×3 (08:40→17:31)
[2016-12-25] MEDS: PANTOPRAZOLE SOD 40 MG DELAYED RELEASE TAB PO SCH (08:40)
[2016-12-25] MEDS: RIVAROXABAN 20 MG TAB PO SCH (08:51)
--- NOTE | 2016-12-25 10:48 | HHI.IDPN ---
Subjective Subjective Remarks Notes reviewed Extubated this weekend Doing well on nasal O2, has good sats Has been transferred out of [facility] yesterday His BC from 12/17 both had Staph epi, but has completely different susceptibility testing, different MOE One from BC from 12/21 with Staph epi as well He is afebrile He has no lines, or hardware Antibiotics Vancomycin Zosyn Zithromax Past Medical History Reviewed Allergies: Coded Allergies: Codeine (Verified Allergy, Intermediate, 12/17/16) Objective . Vital Signs Date Time Temp Pulse Resp B/P Pulse Ox O2 Delivery O2 Flow Rate FiO2 12/25/16 09:38 Nasal Cannula 3.00 12/25/16 08:00 97.2 65 18 121/76 97 12/25/16 04:35 97.0 59 20 111/75 98 12/25/16 02:02 99 Nasal Cannula 4.00 12/25/16 00:15 97.1 58 19 147/83 100 12/24/16 21:10 62 12/24/16 20:00 97.4 61 18 156/87 100 12/24/16 16:00 98.2 61 19 137/72 98 12/24/16 11:33 98.3 68 19 144/79 97 12/24/16 12/24/16 12/25/16 15:00 23:00 07:00 Intake Total 480 ml 997 ml 955 ml Output Total 600 ml 600 ml 725 ml Balance -120 ml 397 ml 230 ml Intake Oral 480 ml 240 ml 240 ml IV Total 757 ml 715 ml Output Urine Total 600 ml 600 ml 725 ml # Bowel Movements 0 0 0 . Laboratory Tests Test 12/24/16 12/25/16 03:08 06:34 White Blood Count 13.7 TH/MM3 13.3 TH/MM3 Red Blood Count 3.25 MIL/MM3 3.18 MIL/MM3 Hemoglobin 9.2 GM/DL 9.2 GM/DL Hematocrit 28.1 % 27.3 % Mean Corpuscular Volume 86.3 FL 85.7 FL Mean Corpuscular Hemoglobin 28.1 PG 28.9 PG Mean Corpuscular Hemoglobin 32.6 % 33.8 % Concent Red Cell Distribution Width 17.8 % 17.6 % Platelet Count 163 TH/MM3 140 TH/MM3 Mean Platelet Volume 10.0 FL 10.1 FL Neutrophils (%) (Auto) 94.0 % 93.9 % Lymphocytes (%) (Auto) 2.5 % 1.9 % Monocytes (%) (Auto) 3.4 % 4.1 % Eosinophils (%) (Auto) 0.0 % 0.0 % Basophils (%) (Auto) 0.1 % 0.1 % Neutrophils # (Auto) 12.9 TH/MM3 12.5 TH/MM3 Lymphocytes # (Auto) 0.3 TH/MM3 0.3 TH/MM3 Monocytes # (Auto) 0.5 TH/MM3 0.6 TH/MM3 Eosinophils # (Auto) 0.0 TH/MM3 0.0 TH/MM3 Basophils # (Auto) 0.0 TH/MM3 0.0 TH/MM3 CBC Comment AUTO DIFF DIFF FINAL Differential Total Cells 100 Counted Neutrophils % (Manual) 95 % Lymphocytes % 2 % Monocytes % 2 % Neutrophils # (Manual) 13.2 TH/MM3 Myelocytes 1 % Differential Comment FINAL DIFF MANUAL Platelet Estimate NORMAL Platelet Morphology Comment ENLARGED Ovalocytes 1+ Laboratory Tests Test 12/24/16 12/25/16 03:08 06:34 Sodium Level 140 MEQ/L 137 MEQ/L Potassium Level 4.4 MEQ/L 4.1 MEQ/L Chloride Level 105 MEQ/L 102 MEQ/L Carbon Dioxide Level 28.6 MEQ/L 30.6 MEQ/L Anion Gap 6 MEQ/L 4 MEQ/L Blood Urea Nitrogen 38 MG/DL 34 MG/DL Creatinine 0.89 MG/DL 0.82 MG/DL Estimat Glomerular Filtration 84 ML/MIN 92 ML/MIN Rate Random Glucose 115 MG/DL 142 MG/DL Calcium Level 8.1 MG/DL 8.1 MG/DL Microbiology Date/Time Procedure Status Source Growth 12/24/16 20:47 Aerobic Blood Culture Received Blood Peripheral Pending 12/24/16 20:47 Anaerobic Blood Culture Received Blood Peripheral Pending Imaging Last Impressions Chest X-Ray 12/20/16 0600 Signed Impressions: Service Date/Time: December 02:46 - CONCLUSION: 1. Cardiomegaly. No acute pulmonary disease. Chris Schumacher MD Physical Exam GENERAL: Awake, alert, NAD SKIN: Cool and dry. No generalized rash. He has no evidence of phlebitis in any of his previous IV sites. HEAD: Atraumatic. Normocephalic. No temporal or scalp tenderness. EYES: [place] conjunctivae, no petechia or hemorrhage. No scleral icterus. No injection or drainage. ENT: Nose without bleeding, or purulent drainage. He has moist oral mucosa. NECK: Trachea midline. No JVD or lymphadenopathy. Supple, nontender, no meningeal signs. CARDIOVASCULAR: Regular rate and rhythm without murmurs, gallops, or rubs. RESPIRATORY: Scattered wheezing, and decreased breath sounds at the bases. GASTROINTESTINAL: Abdomen soft, bowel sounds are present and normoactive, non- tender, nondistended. No hepato-splenomegaly, or palpable masses. No guarding. No rebound. MUSCULOSKELETAL: Extremities without clubbing, cyanosis, or edema. No joint effusion, or edema noted. No calf tenderness. NEUROLOGICAL: Non-focal PSYCH: Calm and cooperatove LINE: PIV with no evidence of infection : Samaniego cath in place, has sediment in tubing Assessment & Plan Remarks IMPRESSION Bacteremia, with Coag Neg Staph, ?significance - has Staph epi with but with totally different MICs and susceptibility testing - he has no line, no hardware - the last (+) BC with Staph epi and different susceptibility Respiratory failure, has known severe COPD - has had Rx for PNA - ?new PNA or just exac of his COPD RECOMMENDATION Stop Zithromax and Zosyn - has received adequate Rx Stop IV Vancomycin Monitor off Abx Monitor progress Patient still on IV solumedrol Palliative medicine following Soumya Brown MD December 25, 2016 10:48
--- NOTE | 2016-12-25 12:50 | HHI.PR ---
Subjective Remarks Follow up COPD exacerbation, pneumonia. Diarrhea has improved. He feels that his breathing is better. No chest pain. Still feels weak, and has bilateral leg discomfort since walking with physical therapy. Objective Vitals Vital Signs Date Time Temp Pulse Resp B/P Pulse Ox O2 Delivery O2 Flow Rate FiO2 12/25/16 09:38 Nasal Cannula 3.00 12/25/16 08:00 97.2 65 18 121/76 97 12/25/16 04:35 97.0 59 20 111/75 98 12/25/16 02:02 99 Nasal Cannula 4.00 12/25/16 00:15 97.1 58 19 147/83 100 12/24/16 21:10 62 12/24/16 20:00 97.4 61 18 156/87 100 12/24/16 16:00 98.2 61 19 137/72 98 I/O 12/24/16 12/24/16 12/24/16 12/25/16 12/25/16 12/25/16 07:00 15:00 23:00 07:00 15:00 23:00 Intake Total 905 ml 480 ml 997 ml 955 ml Output Total 600 ml 600 ml 600 ml 725 ml Balance 305 ml -120 ml 397 ml 230 ml Intake Oral 480 ml 240 ml 240 ml IV Total 905 ml 757 ml 715 ml Output Urine Total 600 ml 600 ml 600 ml 725 ml # Bowel Movements 2 0 0 0 Result Diagram: 12/25/16 0634 12/25/16 0634 Imaging Last Impressions Chest X-Ray 12/22/16 0600 Signed Impressions: Service Date/Time: Thursday, December 22, 2016 02:57 - CONCLUSION: Stable left basilar density. Jerald Figueroa MD Objective Remarks General: Elderly male in no acute distress. Sitting up in a chair. Heart: Regular rate and rhythm. No murmur. Lungs: Clear to auscultation bilaterally. No wheezes, rales, or rhonchi. Breathing is nonlabored. Abdomen: Soft, nontender, nondistended. Extremities: No lower extremity edema. Psych: Alert and oriented. Procedures None Urinary Catheter: Yes Assessment to: Remove Vascular Central Line Catheter: No A/P Problem List: (1) Acute respiratory failure ICD Code: J96.00 Status: Resolved (2) CAD (coronary artery disease) ICD Code: I25.10 Status: Chronic (3) NSTEMI (non-ST elevated myocardial infarction) ICD Code: I21.4 Status: Acute (4) COPD exacerbation ICD Code: J44.1 Status: Acute (5) PNA (pneumonia) ICD Code: J18.9 Status: Acute (6) A-fib ICD Code: I48.91 Status: Chronic Assessment and Plan 1. Acute respiratory failure: Improved. Patient extubated. Continue bronchodilators. Transition to oral steroids. 2. Pneumonia, COPD exacerbation: Continue antibiotics, steroids, bronchodilators. 3. NSTEMI: Patient has history of coronary artery disease with stent placement in 2013. Appreciate cardiology recommendations. Troponin increased. Continue amiodarone, atorvastatin, aspirin, Xarelto. 4. Atrial fibrillation: Status post ablation 2. Continue amiodarone. 5. GERD: Continue PPI. 6. FEN: Tube feeds discontinued yesterday. Passed bedside swallow eval this morning. Start heart healthy diet. 7. Bacteremia: Repeat blood cultures are now growing staph epidermidis. Appreciate infectious disease recommendations. Antibiotics discontinued by infectious disease. 8. DVT prophylaxis: Xareljustin, SCDs, MO lay. 9. Appreciate palliative care assistance. 10. Diarrhea: ? secondary to antibiotics, tube feeds. Monitor. 11. Generalized weakness: Continue physical therapy. Discharge Planning Plan for discharge to SNF soon, possibly next 1-2 days. Problem Qualifiers (1) PNA (pneumonia): Qualified Code: J18.9 - Pneumonia due to infectious organism, unspecified laterality, unspecified part of lung Petr Pfeiffer MD December 25, 2016 12:50
--- NOTE | 2016-12-25 16:34 | HHI.HCPN ---
Reason for visit a. To assist with evaluation and management of symptoms including: dyspnea; agitation; pain b. To assist medical decision maker(s) with: better understanding of current medical conditions; weighing benefits/burdens of medical treatment options; making medical treatment decisions. . (Brianna Bloom) Subjective/Interval History Palliative care follow-up for further clarification of goals of care. Patient was medically extubated on 12/22/16, tolerated well with O2 via nasal cannula, currently at 3 L. Patient seen in medical floor. Endorsing dyspnea on minimal exertion, feeling tired after working with PT. Denies nausea, vomiting or abdominal discomfort. Patient afebrile, stable hemodynamically. Laboratory today showing WBC 13.3, hemoglobin 9.2, platelet count 140. Sodium 137, potassium 4.1, BUN/creatinine 34/0.8. PT has evaluated patient, recommending rehabilitation at discharge. clinical quality manager has provided list of SNF facilities in the area. Patient's daughter Zaina at bedside. Medical update provided. Patient and daughter reports looking forward to discharge. Daughter to visit skilled facilities in the area. Assisted patient incompletion of living will and designation of healthcare surrogate. Patient electing to remain full code at this time. Patient electing daughter Zaina as healthcare surrogate. . Family/friend interactions See interval note. . (Brianna Bloom) Advance Directives Living Will: Copy in medical record Health Care Surrogate: Copy in medical record Durable Power of Food Service Driver: Never completed (Brianna Bloom) Advance Directive Specifics Date completed: 12/25/16. Health Care Surrogate(s): Patient elected daughter Zaina Dillon as healthcare surrogate. . Documented care wishes: Living will completed. Patient electing that his dying not to be artificially prolonged in the setting of terminal condition, end stage condition or persistent vegetative state. Significant change in goals: Full code. Continue current medical management with goal of discharge and to [facility] facility for rehabilitation. (Brianna Bloom) Objective Vital Signs Date Time Temp Pulse Resp B/P Pulse Ox O2 Delivery O2 Flow Rate FiO2 12/25/16 12:00 98.0 56 18 120/69 98 12/25/16 09:38 Nasal Cannula 3.00 12/25/16 08:00 97.2 65 18 121/76 97 12/25/16 04:35 97.0 59 20 111/75 98 12/25/16 02:02 99 Nasal Cannula 4.00 12/25/16 00:15 97.1 58 19 147/83 100 12/24/16 21:10 62 12/24/16 20:00 97.4 61 18 156/87 100 Intake & Output 12/25/16 12/25/16 07:00 19:00 Intake Total 1952 ml Output Total 1325 ml Balance 627 ml Intake Oral 480 ml IV Total 1472 ml Output Urine Total 1325 ml # Bowel Movements 0 Physical Exam CONSTITUTIONAL/GENERAL: Adequately nourished man remain in bed in no acute distress. TUBES/LINES/DRAINS: Samaniego catheter; SCDs, peripheral IV SKIN: No jaundice, rashes, or lesions. Ecchymoses on upper extremities. No wounds seen anteriorly. Skin temperature appropriate. Not diaphoretic. HEAD: Atraumatic. Normocephalic. EYES: Pupils equal and round and reactive. No scleral icterus. No injection or drainage. ENT: Normal hearing. Nose without bleeding or purulent drainage. Moist oral mucosa. NECK: Trachea midline. Supple. CARDIOVASCULAR: Regular rate and rhythm without murmurs, gallops, or rubs. No JVD. Peripheral pulses symmetric. Trace edema to bilateral hands. RESPIRATORY/CHEST: Symmetric, unlabored respirations. Diminished breath sounds bilaterally. Breath sounds equal bilaterally. No wheezes, rales, or rhonchi. GASTROINTESTINAL: Abdomen soft, round, non-tender, nondistended. No guarding. Bowel sounds present. GENITOURINARY: Without palpable bladder distension. Samaniego catheter in place. MUSCULOSKELETAL: Extremities without clubbing, cyanosis. Edema to bilateral upper extremities. NEUROLOGICAL: Alert and oriented 3. Verbal and able to communicate needs. Following instructions. Moves all extremities independently. PSYCHIATRIC: Calm, pleasant. . (Brianna Bloom) Diagnostic Tests Laboratory Laboratory Tests Test 12/23/16 12/23/16 12/24/16 12/25/16 03:04 11:27 03:08 01:46 White Blood Count 17.7 TH/MM3 13.7 TH/MM3 (4.0-11.0) (4.0-11.0) Red Blood Count 3.53 MIL/MM3 3.25 MIL/MM3 (4.50-5.90) (4.50-5.90) Hemoglobin 10.0 GM/DL 9.2 GM/DL (13.0-17.0) (13.0-17.0) Hematocrit 30.7 % 28.1 % (39.0-51.0) (39.0-51.0) Mean Corpuscular Volume 87.0 FL 86.3 FL (80.0-100.0) (80.0-100.0) Mean Corpuscular Hemoglobin 28.4 PG 28.1 PG (27.0-34.0) (27.0-34.0) Mean Corpuscular Hemoglobin 32.7 % 32.6 % Concent (32.0-36.0) (32.0-36.0) Red Cell Distribution Width 18.5 % 17.8 % (11.6-17.2) (11.6-17.2) Platelet Count 175 TH/MM3 163 TH/MM3 (150-450) (150-450) Mean Platelet Volume 10.2 FL 10.0 FL (7.0-11.0) (7.0-11.0) Sodium Level 144 MEQ/L 140 MEQ/L (136-145) (136-145) Potassium Level 4.6 MEQ/L 4.4 MEQ/L (3.5-5.1) (3.5-5.1) Chloride Level 108 MEQ/L 105 MEQ/L (98-107) (98-107) Carbon Dioxide Level 29.6 MEQ/L 28.6 MEQ/L (21.0-32.0) (21.0-32.0) Anion Gap 6 MEQ/L (5-15) 6 MEQ/L (5-15) Blood Urea Nitrogen 38 MG/DL (7-18) 38 MG/DL (7-18) Creatinine 0.91 MG/DL 0.89 MG/DL (0.60-1.30) (0.60-1.30) Estimat Glomerular Filtration 82 ML/MIN (>89) 84 ML/MIN (>89) Rate Random Glucose 103 MG/DL 115 MG/DL (74-106) (74-106) Calcium Level 7.9 MG/DL 8.1 MG/DL (8.5-10.1) (8.5-10.1) Phosphorus Level 3.4 MG/DL (2.5-4.9) Magnesium Level 2.4 MG/DL (1.5-2.5) Vancomycin Level Trough 20.6 MCG/ML 14.7 MCG/ML (5.0-10.0) (5.0-10.0) Neutrophils (%) (Auto) 94.0 % (16.0-70.0) Lymphocytes (%) (Auto) 2.5 % (9.0-44.0) Monocytes (%) (Auto) 3.4 % (0.0-8.0) Eosinophils (%) (Auto) 0.0 % (0.0-4.0) Basophils (%) (Auto) 0.1 % (0.0-2.0) Neutrophils # (Auto) 12.9 TH/MM3 (1.8-7.7) Lymphocytes # (Auto) 0.3 TH/MM3 (1.0-4.8) Monocytes # (Auto) 0.5 TH/MM3 (0-0.9) Eosinophils # (Auto) 0.0 TH/MM3 (0-0.4) Basophils # (Auto) 0.0 TH/MM3 (0-0.2) CBC Comment AUTO DIFF Differential Total Cells 100 Counted Neutrophils % (Manual) 95 % (16-70) Lymphocytes % 2 % (9-44) Monocytes % 2 % (0-8) Neutrophils # (Manual) 13.2 TH/MM3 (1.8-7.7) Myelocytes 1 % (0-0) Differential Comment FINAL DIFF MANUAL Platelet Estimate NORMAL (NORMAL) Platelet Morphology Comment ENLARGED (NORMAL) Ovalocytes 1+ (NORMAL) Test 12/25/16 06:34 White Blood Count 13.3 TH/MM3 (4.0-11.0) Red Blood Count 3.18 MIL/MM3 (4.50-5.90) Hemoglobin 9.2 GM/DL (13.0-17.0) Hematocrit 27.3 % (39.0-51.0) Mean Corpuscular Volume 85.7 FL (80.0-100.0) Mean Corpuscular Hemoglobin 28.9 PG (27.0-34.0) Mean Corpuscular Hemoglobin 33.8 % Concent (32.0-36.0) Red Cell Distribution Width 17.6 % (11.6-17.2) Platelet Count 140 TH/MM3 (150-450) Mean Platelet Volume 10.1 FL (7.0-11.0) Neutrophils (%) (Auto) 93.9 % (16.0-70.0) Lymphocytes (%) (Auto) 1.9 % (9.0-44.0) Monocytes (%) (Auto) 4.1 % (0.0-8.0) Eosinophils (%) (Auto) 0.0 % (0.0-4.0) Basophils (%) (Auto) 0.1 % (0.0-2.0) Neutrophils # (Auto) 12.5 TH/MM3 (1.8-7.7) Lymphocytes # (Auto) 0.3 TH/MM3 (1.0-4.8) Monocytes # (Auto) 0.6 TH/MM3 (0-0.9) Eosinophils # (Auto) 0.0 TH/MM3 (0-0.4) Basophils # (Auto) 0.0 TH/MM3 (0-0.2) CBC Comment DIFF FINAL Differential Comment Prothrombin Time 11.6 SEC (9.8-11.6) Prothromb Time International 1.0 RATIO Ratio Sodium Level 137 MEQ/L (136-145) Potassium Level 4.1 MEQ/L (3.5-5.1) Chloride Level 102 MEQ/L (98-107) Carbon Dioxide Level 30.6 MEQ/L (21.0-32.0) Anion Gap 4 MEQ/L (5-15) Blood Urea Nitrogen 34 MG/DL (7-18) Creatinine 0.82 MG/DL (0.60-1.30) Estimat Glomerular Filtration 92 ML/MIN (>89) Rate Random Glucose 142 MG/DL (74-106) Calcium Level 8.1 MG/DL (8.5-10.1) (Brianna Bloom) Result Diagram: 12/25/16 0634 12/25/16 0634 Microbiology Microbiology Date/Time Procedure Status Source Growth 12/24/16 20:47 Aerobic Blood Culture - Preliminary Resulted Blood Peripheral NO GROWTH IN 1 DAY 12/24/16 20:47 Anaerobic Blood Culture - Preliminary Resulted Blood Peripheral NO GROWTH IN 1 DAY Imaging Last Impressions Chest X-Ray 12/22/16 0600 Signed Impressions: Service Date/Time: Thursday, December 22, 2016 02:57 - CONCLUSION: Stable left basilar density. Jerald Figueroa MD Procedures * 12/17/16 -Intubation/Mechanical ventilation * 12/22/16 -extubation . (Brianna Bloom) Assessment and Plan Disease Oriented Problem List: (1) Sepsis Comment: Blood growing out gram positive cocci . (2) COPD exacerbation (3) NSTEMI (non-ST elevated myocardial infarction) Comment: Elevated troponin and CK MB fraction on this admission . (4) Alcohol abuse (5) Tremor Comment: Reportedly worsening over the last year. Unclear if this has been worked up by a physician. . Symptom Scale: (1) Dyspnea 0-10 Scale: Unable to quantify Comment: Extubated on 12/22/16. Currently tolerating O2 via nasal cannula at 3 L. Dyspnea on minimal exertion. . (2) Pain 0-10 Scale: Unable to quantify Comment: No significant pain syndromes prior to this hospitalization but did occasionally complain of back pain and minor arthritis pains. Reports no pain at this time. . (3) Agitation 0-10 Scale: Unable to quantify Comment: No signs of EtOH withdrawal at this time. 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 Spiritual: Christian lyndsay. Legal: No living will completed. Ethical issues impacting care: No living will completed. . Important Contacts * Pako Bunch (son / co-proxy): [phone] * Zaina Dillon (daughter / co-proxy ): [phone] * Ninfa Richardson (step-daughter): [phone] . Prognosis Mr. Bunch has lung disease that has been progressing over time. He is mostly oxygen dependent at this point. He can typically walk from car to store front but now needs an electric cart to get around. His recent "bounce-back" hospitalization raises concerns that it will be hard to keep the patient out of the hospital in the future. On this hospitalization he has appeared to have suffered a non-ST segment myocardial infarction and also appears to be septic. It is possible that the patient continues with alcohol abuse which would also adversely effect prognosis. Patient is a very high risk for further complications, continue decline and . . Code Status: Full Code Plan * CODE STATUS: Patient electing to remain FULL code. Patient reports that in the event of respiratory arrest, patient will like to be reintubated, but verbalized that if there is no hope of improvement within 7 days, his daughter can proceed with withdrawal life support. * HEALTHCARE DECISION-MAKING: Mr Bunch currently participating in medical decision making. Designation of healthcare surrogate completed today. Patient designated his daughter Zaina Dillon as HCS. * GOALS OF CARE: Goals of treatment at this time is to continue with current medical management and, ongoing discharge planning to rehabilitation for physical straightening. Patient's ultimate goal is to return home for independent living. * SYMPTOMS: == Dyspnea: Extubated on 12/22/16, currently tolerating O2 via nasal cannula at 3 L. == Pain: History of chronic back pain, no pain reported at this time.status. Orders are available for fentanyl. == Agitation: No signs of agitation noted during my visit today. Lorazepam available as needed. * Palliative care assisted today with completion of living will and designation of healthcare surrogate. copy sen to HIM for scanning. * Palliative care contact information has been provided to family. * Palliative care to continue to follow-up with this patient and family for further clarifications of goals of care as his clinical course continues to evolve. . (Brianna Bloom) Time Spent Face to Face Time (mins): 41 (22 minutes used in discussion of advance care planning to include CODE STATUS, completion of living will and designation of healthcare surrogate documentation.) >50% Counseling/Coord of Care: Yes (Brianna Bloom) Attestation To help prompt me to consider important information that might be impacting today's encounter and assessment, information from prior notes written by myself or my colleagues may have been "brought forward" into today's note. My signature on this note, however, is an attestation that I personally performed the exam, history, and/or decision-making noted today, and, unless otherwise indicated, the interactions with patient, family, and staff as well as the review of records all occurred today. I also attest that the listed assessment and stated plan reflect my best clinical judgment today based on the combination of historical information, prior notes, and today's exam/ interactions. When time spent is documented, it refers only to time spent today by the signer, or if indicated, combined time spent today by collaborating physician/nurse practitioner. (Brianna Bloom) Collaborating MD Comments . Chart reviewed. Cased discussed with palliative care STEM CRUSHER. Above STEM CRUSHER note reviewed and I concur. . (Aden Hardy MD) Brianna Bloom December 25, 2016 16:34 Aden Hardy MD January 14, 2017 16:05
[2016-12-25] MEDS: predniSONE 20 MG TAB PO SCH (20:37)
[2016-12-25] MEDS: ATORVASTATIN 20 MG TAB PO SCH (20:37)
[2016-12-26] VITALS (9 sets, daily range): BP systolic 136–154; BP diastolic 70–80; PULSE 59–74; RESP 16–19; TEMP 96.7–98.3; O2SAT 96–99
[2016-12-26] MEDS: RESP: ALBUTEROL 2.5 MG/IPRATROPIUM 0.5 MG NEB (PRN) INH ×3 (00:23→22:46)
[2016-12-26] MEDS: CHLORHEXIDINE GLUCONATE 2 % 1 PACK (2 CLOTHS) TOP SCH (01:20)
[2016-12-26] MEDS: SODIUM CHLOR 0.9% 1000 ML INJ 1,000 ML IV SCH ×2 (03:18→18:30)
[2016-12-26] MEDS: INSULIN ASPART SUPPLEMENTAL SCALE SQ SCH ×4 (06:06→20:35)
[2016-12-26 07:06] LABS: AUTOMATED NEUTROPHIL # 15.6 TH/MM3 (1.8-7.7); HEMATOCRIT 28.3 % (39.0-51.0); HEMO FLAGS DIFF FINAL; LYMPH % 1.4 % (9.0-44.0); LYMPHOCYTE # 0.2 TH/MM3 (1.0-4.8); MEAN CORPUSCULAR HGB CONC 32.6 % (32.0-36.0); NEUT % 93.6 % (16.0-70.0); PLATELET COUNT 140 TH/MM3 (150-450); RED BLOOD COUNT 3.29 MIL/MM3 (4.50-5.90); RED CELL DISTRIBUTION WIDTH 17.7 % (11.6-17.2); WHITE BLOOD COUNT 16.7 TH/MM3 (4.0-11.0)
[2016-12-26 07:26] LABS: BICARBONATE 29.2 MEQ/L (21.0-32.0); POTASSIUM 3.9 MEQ/L (3.5-5.1)
[2016-12-26] MEDS: DOCUSATE SODIUM 100 MG/10 ML UDC G-TUBE SCH ×2 (08:34→20:31)
[2016-12-26] MEDS: AMIODARONE 200 MG TAB PO SCH (08:35)
[2016-12-26] MEDS: BENEPROTEIN POWDER 1 PACK G-TUBE SCH ×3 (08:36→17:37)
[2016-12-26] MEDS: SERTRALINE HCL 50 MG TAB PO SCH (08:38)
[2016-12-26] MEDS: predniSONE 20 MG TAB PO SCH ×2 (08:38→20:31)
[2016-12-26] MEDS: RIVAROXABAN 20 MG TAB PO SCH (08:38)
[2016-12-26] MEDS: THIAMINE HCL 100 MG TAB PO SCH (08:38)
[2016-12-26] MEDS: ASPIRIN EC 81 MG TABEC PO SCH (08:38)
[2016-12-26] MEDS: PANTOPRAZOLE SOD 40 MG DELAYED RELEASE TAB PO SCH (08:38)
[2016-12-26] MEDS: ARTIFICIAL TEARS OPTH SOLN 15 ML BTL EACH EYE SCH ×3 (08:40→17:37)
[2016-12-26] MEDS: SODIUM CHLORIDE 0.9% FLUSH 10 ML FLUSH SCH ×2 (08:41→20:32)
--- NOTE | 2016-12-26 11:48 | HHI.PR ---
Subjective Remarks The patient said he still feels unsteady on his feet but is able to ambulate to the bathroom with a walker. He says his breathing is better. He has not been sleeping well but that is typical for him. He is having a good appetite. Family at the bedside and their questions were answered. Objective Vitals Vital Signs Date Time Temp Pulse Resp B/P Pulse Ox O2 Delivery O2 Flow Rate FiO2 12/26/16 10:13 99 Nasal Cannula 3.00 12/26/16 07:58 96.7 59 18 154/80 96 12/26/16 04:27 96.9 65 19 138/77 99 12/26/16 00:26 98 Nasal Cannula 2.00 12/25/16 20:52 Nasal Cannula 3.00 12/25/16 20:20 98.8 70 19 148/75 97 12/25/16 19:52 98 Nasal Cannula 3.00 12/25/16 16:00 97.3 63 18 135/72 99 12/25/16 12:00 98.0 56 18 120/69 98 I/O 12/25/16 12/25/16 12/25/16 12/26/16 12/26/16 12/26/16 07:00 15:00 23:00 07:00 15:00 23:00 Intake Total 955 ml 720 ml 240 ml Output Total 725 ml 1425 ml 650 ml Balance 230 ml -705 ml -410 ml Intake Oral 240 ml 720 ml 240 ml IV Total 715 ml Output Urine Total 725 ml 1425 ml 650 ml # Bowel Movements 0 1 0 Result Diagram: 12/26/1662612/26/16626 Imaging Last Impressions Chest X-Ray 12/22/16 06 Signed Impressions: Service Date/Time: Thursday, December 22, 2016 02:57 - CONCLUSION: Stable left basilar density. Jerald Figueroa MD Objective Remarks General: Elderly male in no acute distress. Sitting up in a chair. HEENT: NC, AT. Heart: Regular rate and rhythm. No murmur. Lungs: Clear to auscultation bilaterally. Decreased air movement. Abdomen: Soft, nontender, nondistended. Extremities: No lower extremity edema. Neuro: Awake and alert. Psych: Mood and affect appropriate. Procedures None Medications and IVs Current Medications Medications (Trade) Dose Ordered Sig/Vidal Route Start Time Stop Time Status Last Admin (NS Flush) 2 ml UNSCH PRN IVF 12/17/16 18:00 (Cordarone) 200 mg DAILY PO 12/18/16 09:00 12/25/16 08:40 (Ecotrin Ec) 81 mg DAILY PO 12/18/16 09:00 12/26/16 08:38 (Lipitor) 20 mg HS PO 12/17/16 21:00 12/25/16 20:37 (Protonix) 40 mg DAILY PO 12/18/16 09:00 12/26/16 08:38 Rivaroxaban 20 mg 20 mg DAILY PO 12/18/16 09:00 12/26/16 08:38 (NS 1000 ml Inj) 1,000 ml @ 84 mls/hr [id number] IV 12/17/16 20:00 12/25/16 01:41 (NS Flush) 2 ml UNSCH PRN .XX 12/17/16 19:45 (NS Flush) 2 ml BID .XX 12/17/16 21:00 12/26/16 08:41 (Tylenol) 650 mg Q6H PRN PO 12/17/16 19:45 12/20/16 20:38 (Morphine Inj) 2 mg Q2H PRN IV 12/17/16 19:45 12/17/16 23:07 (Ativan Inj) 1 mg Q1H PRN IV 12/17/16 19:45 12/21/16 20:34 (Tears Naturale Opth Soln) 1 drop TID EACH EYE 12/18/16 09:00 12/22/16 12:12 (Zofran Inj) 4 mg Q6H PRN IV 12/17/16 19:45 (Reglan Inj) 10 mg Q6H PRN IV 12/17/16 19:45 12/24/16 04:44 (Colace Liq) 100 mg Q12H G-TUBE 12/17/16 21:00 12/22/16 20:34 Miscellaneous Information 1 Q361D XX 12/17/16 19:45 (Chlorhexidine 2% Cloth) Taper DAILY@04 TOP 12/18/16 04:00 12/14/17 03:59 12/21/16 03:57 Chlorhexidine Gluconate 3 pack 3 pack UNSCH PRN TOP 12/17/16 19:45 Propofol 100 ml @ 0 mls/hr TITRATE IV 12/17/16 20:00 12/22/16 06:02 (Versed Inj) 100 ml @ 0 mls/hr TITRATE IV 12/17/16 19:45 12/17/16 20:04 (Beneprotein Powder) 2 pack TID G-TUBE 12/18/16 09:00 12/22/16 12:12 (D50w (Vial) Inj) 25 ml UNSCH PRN IV 12/18/16 11:45 Glucagon 1 mg 1 mg UNSCH PRN IM/SQ 12/18/16 11:45 (fentaNYL DRIP) 250 ml @ 0 mls/hr TITRATE IV 12/19/16 09:30 12/20/16 20:36 (Vitamin B1) 100 mg DAILY PO 12/19/16 20:15 12/26/16 08:38 (Romazicon Inj) 0.2 mg Q1M PRN IV PUSH 12/19/16 20:15 (Ativan) 1 mg Q4H PRN PO 12/19/16 20:15 (Ativan Inj) 1 mg Q4H PRN IV PUSH 12/19/16 20:15 (Ativan) 2 mg Q2H PRN PO 12/19/16 20:15 (Ativan Inj) 2 mg Q2H PRN IV PUSH 12/19/16 20:15 (Ativan Inj) 2 mg Q1H PRN IV PUSH 12/19/16 20:15 (Ativan Inj) 2 mg Q15M PRN IV PUSH 12/19/16 20:15 (Haldol Inj) 2 mg Q15M PRN IM 12/19/16 20:15 Sertraline HCl 50 mg 50 mg DAILY PO 12/20/16 12:00 12/26/16 08:38 Potassium Chloride 100 ml @ 50 mls/hr Q2H PRN IV 12/21/16 08:15 (KCl 20 Meq Premix Inj) 100 ml @ 50 mls/hr Q2H PRN IV 12/21/16 08:15 Potassium Bicarb/ Potassium Chloride 50 meq 50 meq UNSCH PRN PO 12/21/16 08:15 Potassium Chloride 100 ml @ 25 mls/hr UNSCH PRN IV 12/21/16 08:15 Potassium Chloride 100 ml @ 50 mls/hr Q2H PRN IV 12/21/16 08:15 (Magnesium Sulfate Inj/NS Inj) 100 ml @ 50 mls/hr UNSCH PRN IV 12/21/16 08:15 Magnesium Oxide 800 mg 800 mg UNSCH PRN PO 12/21/16 08:15 (Magnesium Sulfate Inj/NS Inj) 100 ml @ 50 mls/hr UNSCH PRN IV 12/21/16 08:15 Potassium Phosphate 2000 mg 2,000 mg Q4H PRN PO 12/21/16 08:15 (Sodium Phosphate Inj/NS 250 ml Inj) 250 ml @ 42 mls/hr UNSCH PRN IV 12/21/16 08:15 12/21/16 18:24 (K-Phos) 2,000 mg UNSCH PRN PO/TUBE 12/21/16 08:15 (Apresoline Inj) 10 mg Q4H PRN IV PUSH 12/23/16 15:15 12/23/16 18:16 (Deltasone) 40 mg BID PO 12/25/16 21:00 12/26/16 08:38 A/P Problem List: (1) Acute respiratory failure ICD Code: J96.00 Status: Resolved (2) CAD (coronary artery disease) ICD Code: I25.10 Status: Chronic (3) NSTEMI (non-ST elevated myocardial infarction) ICD Code: I21.4 Status: Acute (4) COPD exacerbation ICD Code: J44.1 Status: Acute (5) PNA (pneumonia) ICD Code: J18.9 Status: Acute (6) A-fib ICD Code: I48.91 Status: Chronic Assessment and Plan 1. Acute respiratory failure: Improved. S/t PNA and COPD exacerbation. Patient extubated. Continue bronchodilators. Incentive spirometry. Transition to oral steroids. 2. Pneumonia, COPD exacerbation: S/p antibiotics. Continue steroids, bronchodilators. Encourage ambulation. 3. NSTEMI: Patient has history of coronary artery disease with stent placement in 2014. Appreciate cardiology recommendations. Troponin increased. Continue amiodarone, atorvastatin, aspirin, Xarelto. 4. Atrial fibrillation: Status post ablation 2. Continue amiodarone. 5. GERD: Continue PPI. 6. FEN: Tube feeds discontinued. Started on heart healthy diet. 7. Bacteremia: Repeat blood cultures are now growing staph epidermidis. Appreciate infectious disease recommendations. Antibiotics discontinued by infectious disease. Monitor off antibiotics. 8. DVT prophylaxis: Dilia Chen, [place] lay. 9. Appreciate palliative care assistance. 10. Diarrhea: ? secondary to antibiotics, tube feeds. Monitor. 11. Generalized weakness/ Confusion: S/t critical illness. Continue physical therapy. Discharge Planning Anticipate discharge to SNF in AM if stable. Problem Qualifiers (1) PNA (pneumonia): Qualified Code: J18.9 - Pneumonia due to infectious organism, unspecified laterality, unspecified part of lung Umang Schmid DO December 26, 2016 11:48
--- NOTE | 2016-12-26 12:53 | HHI.IDPN ---
Subjective Subjective Remarks Notes reviewed Clinically doing well Afebrile Off Abx On oral prednisone now NO new (+) BC NO lines, no hardware Antibiotics None Past Medical History Reviewed Allergies: Coded Allergies: Codeine (Verified Allergy, Intermediate, 12/17/16) Objective . Vital Signs Date Time Temp Pulse Resp B/P Pulse Ox O2 Delivery O2 Flow Rate FiO2 12/26/16 10:13 99 Nasal Cannula 3.00 12/26/16 07:58 96.7 59 18 154/80 96 12/26/16 04:27 96.9 65 19 138/77 99 12/26/16 00:26 98 Nasal Cannula 2.00 12/25/16 20:52 Nasal Cannula 3.00 12/25/16 20:20 98.8 70 19 148/75 97 12/25/16 19:52 98 Nasal Cannula 3.00 12/25/16 16:00 97.3 63 18 135/72 99 12/25/16 12/25/16 12/26/16 15:00 23:00 07:00 Intake Total 720 ml 240 ml Output Total 1425 ml 650 ml Balance -705 ml -410 ml Intake Oral 720 ml 240 ml Output Urine Total 1425 ml 650 ml # Bowel Movements 1 0 . Laboratory Tests Test 12/25/16 12/26/16 06:34 06:27 White Blood Count 13.3 TH/MM3 16.7 TH/MM3 Red Blood Count 3.18 MIL/MM3 3.29 MIL/MM3 Hemoglobin 9.2 GM/DL 9.2 GM/DL Hematocrit 27.3 % 28.3 % Mean Corpuscular Volume 85.7 FL 86.0 FL Mean Corpuscular Hemoglobin 28.9 PG 28.0 PG Mean Corpuscular Hemoglobin 33.8 % 32.6 % Concent Red Cell Distribution Width 17.6 % 17.7 % Platelet Count 140 TH/MM3 140 TH/MM3 Mean Platelet Volume 10.1 FL 10.0 FL Neutrophils (%) (Auto) 93.9 % 93.6 % Lymphocytes (%) (Auto) 1.9 % 1.4 % Monocytes (%) (Auto) 4.1 % 5.0 % Eosinophils (%) (Auto) 0.0 % 0.0 % Basophils (%) (Auto) 0.1 % 0.0 % Neutrophils # (Auto) 12.5 TH/MM3 15.6 TH/MM3 Lymphocytes # (Auto) 0.3 TH/MM3 0.2 TH/MM3 Monocytes # (Auto) 0.6 TH/MM3 0.8 TH/MM3 Eosinophils # (Auto) 0.0 TH/MM3 0.0 TH/MM3 Basophils # (Auto) 0.0 TH/MM3 0.0 TH/MM3 CBC Comment DIFF FINAL DIFF FINAL Differential Comment Laboratory Tests Test 12/25/16 12/26/16 06:34 06:27 Sodium Level 137 MEQ/L 137 MEQ/L Potassium Level 4.1 MEQ/L 3.9 MEQ/L Chloride Level 102 MEQ/L 101 MEQ/L Carbon Dioxide Level 30.6 MEQ/L 29.2 MEQ/L Anion Gap 4 MEQ/L 7 MEQ/L Blood Urea Nitrogen 34 MG/DL 27 MG/DL Creatinine 0.82 MG/DL 0.82 MG/DL Estimat Glomerular Filtration 92 ML/MIN 92 ML/MIN Rate Random Glucose 142 MG/DL 130 MG/DL Calcium Level 8.1 MG/DL 8.2 MG/DL Microbiology Date/Time Procedure Status Source Growth 12/24/16 20:47 Aerobic Blood Culture - Preliminary Resulted Blood Peripheral NO GROWTH IN 2 DAYS 12/24/16 20:47 Anaerobic Blood Culture - Preliminary Resulted Blood Peripheral NO GROWTH IN 2 DAYS Imaging Last Impressions Chest X-Ray 12/20/16 0600 Signed Impressions: Service Date/Time: December 02:46 - CONCLUSION: 1. Cardiomegaly. No acute pulmonary disease. Chris Schumacher MD Physical Exam GENERAL: Awake, alert, NAD SKIN: Cool and dry. No generalized rash. He has no evidence of phlebitis in any of his previous IV sites. HEAD: Atraumatic. Normocephalic. No temporal or scalp tenderness. EYES: [place] conjunctivae, no petechia or hemorrhage. No scleral icterus. No injection or drainage. ENT: Nose without bleeding, or purulent drainage. He has moist oral mucosa. NECK: Trachea midline. No JVD or lymphadenopathy. Supple, nontender, no meningeal signs. CARDIOVASCULAR: Regular rate and rhythm without murmurs, gallops, or rubs. RESPIRATORY: Scattered wheezing, and decreased breath sounds at the bases. GASTROINTESTINAL: Abdomen soft, bowel sounds are present and normoactive, non- tender, nondistended. No hepato-splenomegaly, or palpable masses. No guarding. No rebound. MUSCULOSKELETAL: Extremities without clubbing, cyanosis, or edema. No joint effusion, or edema noted. No calf tenderness. NEUROLOGICAL: Non-focal PSYCH: Calm and cooperatove LINE: PIV with no evidence of infection : Samaniego cath in place, has sediment in tubing Assessment & Plan Remarks IMPRESSION Bacteremia, with Coag Neg Staph, ?significance - has 3 dofferent starins of Staph epi - he has no line, no hardware Respiratory failure, has known severe COPD - has had Rx for PNA RECOMMENDATION Patient clinically stable off Abx He is stable for D/C from ID standpoint I will sign off Soumya Brown MD December 26, 2016 12:53
[2016-12-26] MEDS: ATORVASTATIN 20 MG TAB PO SCH (20:31)
[2016-12-27] VITALS (7 sets, daily range): BP systolic 123–168; BP diastolic 70–81; PULSE 60–87; RESP 17–19; TEMP 96.8–98.3; O2SAT 93–99
[2016-12-27] MEDS: CHLORHEXIDINE GLUCONATE 2 % 1 PACK (2 CLOTHS) TOP SCH (00:07)
[2016-12-27] MEDS: SODIUM CHLOR 0.9% 1000 ML INJ 1,000 ML IV SCH ×2 (05:28→17:46)
[2016-12-27] MEDS: INSULIN ASPART SUPPLEMENTAL SCALE SQ SCH ×4 (06:11→21:00)
[2016-12-27] MEDS: SODIUM CHLORIDE 0.9% FLUSH 10 ML FLUSH SCH ×2 (09:00→23:21)
[2016-12-27] MEDS: ARTIFICIAL TEARS OPTH SOLN 15 ML BTL EACH EYE SCH ×3 (09:00→17:46)
[2016-12-27] MEDS: BENEPROTEIN POWDER 1 PACK G-TUBE SCH ×3 (09:00→17:46)
[2016-12-27] MEDS: AMIODARONE 200 MG TAB PO SCH (09:00)
[2016-12-27] MEDS: DOCUSATE SODIUM 100 MG/10 ML UDC G-TUBE SCH ×2 (09:00→23:20)
[2016-12-27] MEDS: SERTRALINE HCL 50 MG TAB PO SCH (09:31)
[2016-12-27] MEDS: ASPIRIN EC 81 MG TABEC PO SCH (09:31)
[2016-12-27] MEDS: PANTOPRAZOLE SOD 40 MG DELAYED RELEASE TAB PO SCH (09:31)
[2016-12-27] MEDS: THIAMINE HCL 100 MG TAB PO SCH (09:31)
[2016-12-27] MEDS: RIVAROXABAN 20 MG TAB PO SCH (09:31)
[2016-12-27] MEDS: predniSONE 20 MG TAB PO SCH ×2 (09:31→23:19)
--- NOTE | 2016-12-27 09:52 | HHI.DCPOC ---
Discharge Care Plan Diagnosis: (1) Acute respiratory failure (2) Sepsis (3) COPD (chronic obstructive pulmonary disease) (4) PNA (pneumonia) (5) A-fib Goals to Promote Your Health * To prevent worsening of your condition and complications * To maintain your health at the optimal level Directions to Meet Your Goals Take your medications as prescribed Follow your dietary instruction Follow activity as directed Keep your appointments as scheduled Take your immunizations and boosters as scheduled If your symptoms worsen call your PCP, if no PCP go to Urgent Care Center or Emergency Room Smoking is Dangerous to Your Health. Avoid second hand smoke Call the 24-hour hour crisis hotline for domestic abuse at Umang Schmid DO December 27, 2016 09:52
[2016-12-27] MEDS ORDERED: PRED20 PO ×2 (09:58)
--- NOTE | 2016-12-27 10:14 | HHI.DS ---
Discharge Summary Admission Date December 17, 2016 at 19:19 Discharge Date: December 28, 2016 Admitting Diagnosis Resp Failure, COPD (1) Acute respiratory failure ICD Code: J96.00 Diagnosis: Principal (2) CAD (coronary artery disease) ICD Code: I25.10 (3) NSTEMI (non-ST elevated myocardial infarction) ICD Code: I21.4 (4) COPD exacerbation ICD Code: J44.1 Diagnosis: Principal (5) PNA (pneumonia) ICD Code: J18.9 Diagnosis: Principal (6) A-fib ICD Code: I48.91 Procedures None Brief History - From Admission 71-year-old male with COPD, coronary artery disease, atrial fibrillation, he was discharged recently following admission for pneumonia returns tonight by EMS in severe respiratory distress. In the urgency department he repeatedly complain on shortness of breath, his O2 sat was in the low 80s, patient was tachypneic to about 40 breaths minute and he was intubated shortly following arrival by ED attending. CBC/BMP: 12/26/16 0627 12/26/16 0627 Significant Findings Laboratory Tests Test 12/25/16 12/25/16 12/26/16 01:46 06:34 06:27 Vancomycin Level Trough 14.7 MCG/ML (5.0-10.0) White Blood Count 13.3 TH/MM3 16.7 TH/MM3 (4.0-11.0) (4.0-11.0) Red Blood Count 3.18 MIL/MM3 3.29 MIL/MM3 (4.50-5.90) (4.50-5.90) Hemoglobin 9.2 GM/DL 9.2 GM/DL (13.0-17.0) (13.0-17.0) Hematocrit 27.3 % 28.3 % (39.0-51.0) (39.0-51.0) Red Cell Distribution Width 17.6 % 17.7 % (11.6-17.2) (11.6-17.2) Platelet Count 140 TH/MM3 140 TH/MM3 (150-450) (150-450) Neutrophils (%) (Auto) 93.9 % 93.6 % (16.0-70.0) (16.0-70.0) Lymphocytes (%) (Auto) 1.9 % 1.4 % (9.0-44.0) (9.0-44.0) Neutrophils # (Auto) 12.5 TH/MM3 15.6 TH/MM3 (1.8-7.7) (1.8-7.7) Lymphocytes # (Auto) 0.3 TH/MM3 0.2 TH/MM3 (1.0-4.8) (1.0-4.8) Anion Gap 4 MEQ/L (5-15) Blood Urea Nitrogen 34 MG/DL (7-18) 27 MG/DL (7-18) Random Glucose 142 MG/DL 130 MG/DL (74-106) (74-106) Calcium Level 8.1 MG/DL 8.2 MG/DL (8.5-10.1) (8.5-10.1) Imaging Last Impressions Chest X-Ray 12/22/16 0600 Signed Impressions: Service Date/Time: Saturday, December 22, 2016 02:57 - CONCLUSION: Stable left basilar density. Jerald Figueroa MD PE at Discharge General: Elderly male in no acute distress. Sitting up in a chair. HEENT: NC, AT. Heart: Regular rate and rhythm. No murmur. Lungs: Clear to auscultation bilaterally. Decreased air movement. Abdomen: Soft, nontender, nondistended. Extremities: No lower extremity edema. Neuro: Awake and alert. Psych: Mood and affect appropriate. Hospital Course Acute respiratory failure The patient was intubated and sedated. He was found to have pneumonia and was continued on broad spectrum antibiotics. He was started on steroids. Palliative care was consulted to assist with goals of care and guidance regarding decision maker. The pt had bradycardia and hypotension and was placed on CIWA protocol due to tremors. He was started on tube feeds. The patient was successfully extubated. He was continued on bronchodilators and incentive spirometry. He completed a course of antibiotics. His diet was advanced. He was transitioned to oral steroids. NSTEMI Cardiology was consulted. The pt was continued on his cardiac regimen. He was treated for respiratory failure as above. He will follow up with cardiology as an outpt. Bacteremia Blood cultures grew 3 different strains of Staph epidermidis. Infectious disease was consulted. Antibiotics were discontinued by infectious disease. The pt continued to do well. Pt Condition on Discharge: Stable Discharge Disposition: Discharge to SNF Discharge Time: > 30 minutes Discharge Instructions DIET: Follow Instructions for: Heart Healthy Diet Activities you can perform: Weight Bearing as Tri Follow up Referrals: Cardiology - 2 Weeks PCP Follow-up - 1 Week New Medications: Prednisone (Prednisone) 20 Mg Tab 20 MG PO DAILY Please start once completed with twice daily dosing. Breathing # 7 Ref 0 TAB Prednisone (Prednisone) 20 Mg Tab 20 MG PO BID Breathing #6 TAB Continued Medications: Amiodarone (Amiodarone) 200 Mg Tab 200 MG PO DAILY Regulate Heart Beat #30 Ref 0 TAB Aspirin (Aspirin) 81 Mg Tabdr 81 MG PO DAILY TAB Atorvastatin (Atorvastatin) 20 Mg Tab 20 MG PO HS Cholesterol Management #30 Ref 0 TAB Fluticasone-Salmeterol Inh (Advair Diskus Inh) 500-50 Mcg/Blist Aer 1 PUFF INH BID Rinse mouth after use. #1 Ref 0 INHALER Folic Acid (Folic Acid) 5 Mg Cap 1 MG PO DAILY Nutritional Supplement Ref 0 CAP Ipratropium-Albuterol Neb (Duoneb) 0.5-2.5 Mg/3 Ml Neb 1 AMPULE NEB Q6HR Broncospasm Days 30 ML Multiple Vitamins W/ Minerals (Centrum Silver) 1 Tab 1 TAB PO DAILY Nutritional Supplement Ref 0 TAB Pantoprazole (Pantoprazole) 40 Mg Tab 40 MG PO DAILY Reflux #30 Ref 0 TAB Rivaroxaban (Xarelto) 20 Mg Tab 20 MG PO DAILY Blood Clot Prevention Ref 0 TAB Sertraline (Sertraline) 50 Mg Tab 50 MG PO DAILY #30 Ref 0 TAB Discontinued Medications: Azithromycin (Azithromycin) 250 Mg Tab 250 MG PO DAILY Infection #2 Ref 0 TAB Prednisone (48) 10 mg tab Dose Pack (Prednisone (48) 10 mg tab Dose Pack) 10 Mg Dspk 10 MG PO DIRECTED Inflammation #1 Ref 0 DSPK Tizanidine (Tizanidine) 4 Mg Cap 4 MG PO TID Muscle Spasm Ref 0 CAP Additional Information Discharge time greater than 30 minutes Umang Schmid DO December 27, 2016 10:14
--- NOTE | 2016-12-27 10:31 | HHI.PR ---
Subjective Remarks The patient was resting in bed comfortably he had no acute complaints. Family was at the bedside. The patient was looking forward to going to rehabilitation. Objective Vitals Vital Signs Date Time Temp Pulse Resp B/P Pulse Ox O2 Delivery O2 Flow Rate FiO2 12/27/16 08:00 96.8 60 19 150/75 96 12/27/16 04:00 97.6 70 18 136/75 95 12/27/16 00:00 98.3 79 18 123/77 99 12/26/16 22:48 96 Nasal Cannula 2.00 12/26/16 20:36 Nasal Cannula 3.00 12/26/16 20:00 98.3 68 16 142/77 96 12/26/16 19:01 98 12/26/16 16:35 98.0 70 18 139/70 97 12/26/16 12:30 98.0 74 18 136/80 97 I/O 12/26/16 12/26/16 12/26/16 12/27/16 12/27/16 12/27/16 06:59 14:59 22:59 06:59 14:59 22:59 Intake Total 240 ml 90 ml 720 ml 480 ml Output Total 650 ml 450 ml 2150 ml 600 ml Balance -410 ml -360 ml -1430 ml -120 ml Intake Oral 240 ml 90 ml 720 ml 480 ml Output Urine Total 650 ml 450 ml 2150 ml 600 ml # Bowel Movements 0 0 0 Result Diagram: 12/26/1662612/26/16 06 Imaging Last Impressions Chest X-Ray 12/22/16 0600 Signed Impressions: Service Date/Time: Thursday, December 22, 2016 02:57 - CONCLUSION: Stable left basilar density. Jerald Figueroa MD Objective Remarks General: Elderly male in no acute distress. Sitting up in a chair. HEENT: NC, AT. Heart: Regular rate and rhythm. No murmur. Lungs: Clear to auscultation bilaterally. Decreased air movement. Abdomen: Soft, nontender, nondistended. Extremities: No lower extremity edema. Neuro: Awake and alert. Psych: Mood and affect appropriate. Procedures None Medications and IVs Current Medications Medications (Trade) Dose Ordered Sig/Vidal Route Start Time Stop Time Status Last Admin (NS Flush) 2 ml UNSCH PRN IVF 12/17/16 18:00 (Cordarone) 200 mg DAILY PO 5/2/17 09:00 12/25/16 08:40 (Ecotrin Ec) 81 mg DAILY PO 12/18/16 09:00 12/27/16 09:31 (Lipitor) 20 mg HS PO 12/17/16 21:00 12/26/16 20:31 (Protonix) 40 mg DAILY PO 12/18/16 09:00 12/27/16 09:31 Rivaroxaban 20 mg 20 mg DAILY PO 12/18/16 09:00 12/27/16 09:31 (NS 1000 ml Inj) 1,000 ml @ 84 mls/hr [id number] IV 12/17/16 20:00 12/25/16 01:41 (NS Flush) 2 ml UNSCH PRN .XX 12/17/16 19:45 (NS Flush) 2 ml BID .XX 12/17/16 21:00 12/27/16 09:00 (Tylenol) 650 mg Q6H PRN PO 12/17/16 19:45 12/20/16 20:38 (Morphine Inj) 2 mg Q2H PRN IV 12/17/16 19:45 12/17/16 23:07 (Ativan Inj) 1 mg Q1H PRN IV 12/17/16 19:45 12/21/16 20:34 (Tears Naturale Opth Soln) 1 drop TID EACH EYE 12/18/16 09:00 12/22/16 12:12 (Zofran Inj) 4 mg Q6H PRN IV 12/17/16 19:45 (Reglan Inj) 10 mg Q6H PRN IV 12/17/16 19:45 12/24/16 04:44 (Colace Liq) 100 mg Q12H G-TUBE 12/17/16 21:00 12/22/16 20:34 Miscellaneous Information 1 Q361D XX 12/17/16 19:45 (Chlorhexidine 2% Cloth) Taper DAILY@04 TOP 12/18/16 04:00 12/14/17 03:59 12/21/16 03:57 Chlorhexidine Gluconate 3 pack 3 pack UNSCH PRN TOP 12/17/16 19:45 Propofol 100 ml @ 0 mls/hr TITRATE IV 12/17/16 20:00 12/22/16 06:02 (Versed Inj) 100 ml @ 0 mls/hr TITRATE IV 12/17/16 19:45 12/17/16 20:04 (Beneprotein Powder) 2 pack TID G-TUBE 12/18/16 09:00 12/22/16 12:12 (D50w (Vial) Inj) 25 ml UNSCH PRN IV 12/18/16 11:45 Glucagon 1 mg 1 mg UNSCH PRN IM/SQ 12/18/16 11:45 (fentaNYL DRIP) 250 ml @ 0 mls/hr TITRATE IV 12/19/16 09:30 12/20/16 20:36 (Vitamin B1) 100 mg DAILY PO 12/19/16 20:15 12/27/16 09:31 (Romazicon Inj) 0.2 mg Q1M PRN IV PUSH 12/19/16 20:15 (Ativan) 1 mg Q4H PRN PO 12/19/16 20:15 (Ativan Inj) 1 mg Q4H PRN IV PUSH 12/19/16 20:15 (Ativan) 2 mg Q2H PRN PO 12/19/16 20:15 (Ativan Inj) 2 mg Q2H PRN IV PUSH 12/19/16 20:15 (Ativan Inj) 2 mg Q1H PRN IV PUSH 12/19/16 20:15 (Ativan Inj) 2 mg Q15M PRN IV PUSH 12/19/16 20:15 (Haldol Inj) 2 mg Q15M PRN IM 12/19/16 20:15 Sertraline HCl 50 mg 50 mg DAILY PO 12/20/16 12:00 12/27/16 09:31 Potassium Chloride 100 ml @ 50 mls/hr Q2H PRN IV 12/21/16 08:15 (KCl 20 Meq Premix Inj) 100 ml @ 50 mls/hr Q2H PRN IV 12/21/16 08:15 Potassium Bicarb/ Potassium Chloride 50 meq 50 meq UNSCH PRN PO 12/21/16 08:15 Potassium Chloride 100 ml @ 25 mls/hr UNSCH PRN IV 12/21/16 08:15 Potassium Chloride 100 ml @ 50 mls/hr Q2H PRN IV 12/21/16 08:15 (Magnesium Sulfate Inj/NS Inj) 100 ml @ 50 mls/hr UNSCH PRN IV 12/21/16 08:15 Magnesium Oxide 800 mg 800 mg UNSCH PRN PO 12/21/16 08:15 (Magnesium Sulfate Inj/NS Inj) 100 ml @ 50 mls/hr UNSCH PRN IV 12/21/16 08:15 Potassium Phosphate 2000 mg 2,000 mg Q4H PRN PO 12/21/16 08:15 (Sodium Phosphate Inj/NS 250 ml Inj) 250 ml @ 42 mls/hr UNSCH PRN IV 12/21/16 08:15 12/21/16 18:24 (K-Phos) 2,000 mg UNSCH PRN PO/TUBE 12/21/16 08:15 (Apresoline Inj) 10 mg Q4H PRN IV PUSH 12/23/16 15:15 12/23/16 18:16 (Deltasone) 40 mg BID PO 12/25/16 21:00 12/27/16 09:31 A/P Problem List: (1) Acute respiratory failure ICD Code: J96.00 Status: Resolved (2) CAD (coronary artery disease) ICD Code: I25.10 Status: Chronic (3) NSTEMI (non-ST elevated myocardial infarction) ICD Code: I21.4 Status: Acute (4) COPD exacerbation ICD Code: J44.1 Status: Acute (5) PNA (pneumonia) ICD Code: J18.9 Status: Acute (6) A-fib ICD Code: I48.91 Status: Chronic Assessment and Plan 1. Acute respiratory failure: Improved. S/t PNA and COPD exacerbation. Patient extubated. Continue bronchodilators. Incentive spirometry. Transition to oral steroids. 2. Pneumonia, COPD exacerbation: S/p antibiotics. Continue steroids, bronchodilators. Encourage ambulation. 3. NSTEMI: Patient has history of coronary artery disease with stent placement in 2013. Troponin increased to 1.92. It does not appear cardiology saw the patient. Cardiology has been contacted 12/27 and will evaluate the pt. He is currently chest pain-free. Continue amiodarone, atorvastatin, aspirin, Xarelto. 4. Atrial fibrillation: Status post ablation 2. Continue amiodarone. 5. GERD: Continue PPI. 6. FEN: Tube feeds discontinued. Started on heart healthy diet. 7. Bacteremia: Repeat blood cultures are now growing staph epidermidis. Appreciate infectious disease recommendations. Antibiotics discontinued by infectious disease. Monitor off antibiotics. Cleared for discharge by ID. 8. DVT prophylaxis: April, DANKs, [place] lay. 9. Appreciate palliative care assistance. 10. Diarrhea: ? secondary to antibiotics, tube feeds. Monitor. 11. Generalized weakness/ Confusion: S/t critical illness. Continue physical therapy. Discharge Planning Anticipate discharge to SNF once evaluated by cardiology. Problem Qualifiers (1) PNA (pneumonia): Qualified Code: J18.9 - Pneumonia due to infectious organism, unspecified laterality, unspecified part of lung Umang Schmid DO December 27, 2016 10:31
[2016-12-27] MEDS: RESP: ALBUTEROL 2.5 MG/IPRATROPIUM 0.5 MG NEB (PRN) INH (16:06)
[2016-12-27] MEDS: ATORVASTATIN 20 MG TAB PO SCH (23:20)
[2016-12-28] VITALS: PULSE 70
[2016-12-28 00:15] VITALS: BP 145/83; PULSE 66; RESP 16; TEMP 97.7; O2SAT 97
[2016-12-28] MEDS: CHLORHEXIDINE GLUCONATE 2 % 1 PACK (2 CLOTHS) TOP SCH (03:05)
[2016-12-28 04:00] VITALS: BP 168/86; PULSE 81; RESP 17; TEMP 98; O2SAT 99
[2016-12-28] MEDS: SODIUM CHLOR 0.9% 1000 ML INJ 1,000 ML IV SCH (05:56)
[2016-12-28] MEDS: INSULIN ASPART SUPPLEMENTAL SCALE SQ SCH ×2 (06:27→11:21)
[2016-12-28 08:00] VITALS: BP 134/86; PULSE 59; RESP 19; TEMP 97.5; O2SAT 96
[2016-12-28] MEDS: RIVAROXABAN 20 MG TAB PO SCH (08:45)
[2016-12-28] MEDS: PANTOPRAZOLE SOD 40 MG DELAYED RELEASE TAB PO SCH (09:00)
[2016-12-28] MEDS: ARTIFICIAL TEARS OPTH SOLN 15 ML BTL EACH EYE SCH (09:00)
[2016-12-28] MEDS: BENEPROTEIN POWDER 1 PACK G-TUBE SCH (09:00)
[2016-12-28] MEDS: SERTRALINE HCL 50 MG TAB PO SCH (09:01)
[2016-12-28] MEDS: predniSONE 20 MG TAB PO SCH (09:01)
[2016-12-28] MEDS: ASPIRIN EC 81 MG TABEC PO SCH (09:01)
[2016-12-28] MEDS: THIAMINE HCL 100 MG TAB PO SCH (09:01)
[2016-12-28] MEDS: AMIODARONE 200 MG TAB PO SCH (09:01)
[2016-12-28] MEDS: DOCUSATE SODIUM 100 MG/10 ML UDC G-TUBE SCH (09:02)
[2016-12-28] MEDS: SODIUM CHLORIDE 0.9% FLUSH 10 ML FLUSH SCH (09:03)
--- NOTE | 2016-12-28 09:28 | MB ---
cc: HUE MONTANEZ M.D. DATE OF CONSULTATION: 12/28/2016 REASON FOR CONSULTATION: Cardiology consultation. REASON FOR CONSULTATION Increased troponin. HISTORY OF PRESENT ILLNESS: Mr. Bunch 71-year-old gentleman with history of coronary artery disease, PTCA plus stent in 2013, chronic obstructive pulmonary disease, cerebrovascular accident, atrial fibrillation, who was recently admitted due to respiratory failure, uncompensated chronic obstructive pulmonary disease. During hospitalization troponin increased. I was consulted for further evaluation and management. The chart was reviewed. The patient was evaluated. ALLERGIES CODEINE SOCIAL HISTORY: The social history is negative for smoking and drinking. FAMILY HISTORY Noncontributory to his current medical condition. MEDICATIONS Currently innaman is taking 1. Amiodarone 200 mg a day. 2. Aspirin 81 mg a day. 3. Lipitor of 20 mg a day. 4. Insulin. 5. Magnesium. REVIEW OF SYSTEMS Currently the patient refers no chest pain, no palpitation. No vomiting. No fever. PHYSICAL EXAMINATION: IN GENERAL: Physical exam, fully oriented. VITAL SIGNS: Blood pressure 145/83, pulse 66, respiratory 18 Today. CARDIOVASCULAR SYSTEM: S1-S2 regular. ABDOMEN: Soft. No mass. EXTREMITIES: No edema. TESTING: Electrocardiogram on hospitalization shows sinus tachycardia, a new left axis and no significant nonspecific ST and T-wave changes. LABORATORY DATA Hemoglobin 9.2, white blood cell 16.7, potassium 3.9, creatinine 0.82, troponin 0.17. INR 1.0. ASSESSMENT AND RECOMMENDATIONS Miss Alivia currently stable. Blood pressure adequate. No chest pain or chest discomfort. Troponin is only 0.17. No significant ST changes. My recommendation at this point is continue with current management. It is okay to discharge the gentleman home. He has been seen by palliative medicine. I will see him on a p.r.n. basis. Hue Montanez MD /kelly /8:46 AM /9:11 AM
[2016-12-28] MEDS: RESP: ALBUTEROL 2.5 MG/IPRATROPIUM 0.5 MG NEB (PRN) INH (09:31)
[2016-12-28 09:34] VITALS: O2SAT 97
[2016-12-28 12:00] VITALS: BP 126/64; PULSE 68; RESP 20; TEMP 97.4; O2SAT 96
== END 2016-12-28 14:04 | DRG 207 ==
LOC: NEPE 17:47 → NEDA 19:19 → HIMW 12-18 00:05 → N06A 12-24 09:20
PROVIDERS: ADMIT Internal Medicine Critical Care Medicine; ATTEND Hospitalist
PROC: 0BH17EZ Insertion of Endotracheal Airway into Trachea, Via Natural or Artificial Opening (ICD-10-PCS; principal; 2016-12-17)
PROC: 5A1955Z Respiratory Ventilation, Greater than 96 Consecutive Hours (ICD-10-PCS; 2016-12-17)
DX: J96.01 Acute respiratory failure with hypoxia (principal); I21.4 Non-ST elevation (NSTEMI) myocardial infarction; J18.9 Pneumonia, unspecified organism; N17.9 Acute kidney failure, unspecified; I48.2 Chronic atrial fibrillation; Z99.81 Dependence on supplemental oxygen; B95.7 Other staphylococcus as the cause of diseases classified elsewhere; E88.09 Other disorders of plasma-protein metabolism, not elsewhere classified; R78.81 Bacteremia; J44.1 Chronic obstructive pulmonary disease with (acute) exacerbation; J44.0 Chronic obstructive pulmonary disease with (acute) lower respiratory infection; D64.9 Anemia, unspecified; K21.9 Gastro-esophageal reflux disease without esophagitis; I25.10 Atherosclerotic heart disease of native coronary artery without angina pectoris; Z86.73 Personal history of transient ischemic attack (TIA), and cerebral infarction without residual deficits; R19.7 Diarrhea, unspecified; R53.1 Weakness; R41.0 Disorientation, unspecified; R25.1 Tremor, unspecified; J45.909 Unspecified asthma, uncomplicated; F32.9 Major depressive disorder, single episode, unspecified; E78.00 Pure hypercholesterolemia, unspecified; Z95.5 Presence of coronary angioplasty implant and graft; Z87.891 Personal history of nicotine dependence; Z88.5 Allergy status to narcotic agent
CPT/HCPCS: 31500; 36600; 71010; 80048; 80053; 80202; 82550; 82552; 82805; 82948; 83605; 83735; 83880; 84100; 84484; 85007; 85025; 85027; 85610; 85730; 86403; 87040; 87070; 87077; 87186; 87205; 87641; 93005; 94002; 94003; 94150; 94640; 94664; J0360; J0456; J0692; J1265; J1815; J2060; J2250; J2270; J2543; J2765; J2920; J3010; J3370; J7030; J7040; J7050; J7512